=== PATIENT | female | born 1965 | race Caucasian/White ===

== ENCOUNTER 2019-12-06 22:36 | Emergency (ER) | payer BC, SELFPAY ==
--- NOTE | 2019-12-06 22:45 | ECG_ITS ---
Test Reason : CP Blood Pressure : / mmHG Vent. Rate : 084 BPM Atrial Rate : 084 BPM P-R Int : 154 ms QRS Dur : 094 ms QT Int : 396 ms P-R-T Axes : 031 011 046 degrees QTc Int : 467 ms Normal sinus rhythm Normal ECG When compared with ECG of 30-MAY-2019 06:42, No significant change was found Referred By: Mala Rinaldi Electronically Signed By:JOSÉ MIGUEL ROSEN MD
[2019-12-06 22:48] VITALS: BP 133/82; PULSE 86; RESP 16; TEMP 36.5; O2SAT 97; BMI 31.9
--- NOTE | 2019-12-06 22:56 | XR_ITS ---
EXAMINATION: CHEST 1 VIEW CLINICAL INFORMATION: Chest pain. COMPARISON: February 19, 2019. TECHNIQUE: An AP view of the chest is provided. FINDINGS: The cardiac silhouette is not enlarged. The mediastinal and hilar contours are unremarkable. There are neither pleural effusions nor pneumothoraces. There are no consolidations. The osseous structures are stable. XR/XR chest 1V IMPRESSION: No evidence for acute disease.
--- NOTE | 2019-12-06 22:58 | ED_ITS ---
HPI - Chest Pain General Chief Complaint: Chest Pain Stated Complaint: CHEST PAIN Time Seen by Provider: 12/06/19 22:56 Source: patient Mode of arrival: ambulatory Limitations: no limitations History of Present Illness HPI narrative: this is a 54-year-old female walked into the emergency room with left-sided chest pain started 45 minutes ago, pain is localized to the left chest area, patient was described as intermittent, patient was resting watching TV when she had the pain, nothing made it worse or better, patient declined any radiation of the pain, patient also declined any other associated symptoms, pain was rated as 5/10. 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 Reviewed her record patient had a negative stress test in 2017. Related Data Home Medications Medication Instructions Recorded Confirmed diltiazem HCl 1 cap PO DAILY 12/06/19 12/06/19 duloxetine 1 cap PO DAILY 12/06/19 12/06/19 gabapentin 300 mg PO DAILY 12/06/19 12/06/19 lorazepam 1 tab PO BID PRN 12/06/19 12/06/19 lorazepam 1 tab PO BID PRN 12/06/19 12/06/19 montelukast 1 tab PO DAILY 12/06/19 12/06/19 triamcinolone acetonide See Rx Instructions .ROUTE .COMPLEX 12/06/19 12/06/19 Allergies Allergy/AdvReac Type Severity Reaction Status Date / Time Sulfa (Sulfonamide Allergy Intermediate rash Verified 12/06/19 23:35 Antibiotics) [SULFA (SULFONAMIDE ANTIBIOTICS)] amitriptyline Allergy Unknown lethargy Verified 12/06/19 23:07 codeine [CODEINE] Allergy Unknown RASH Verified 12/06/19 23:07 naproxen [From NAPROSYN] Allergy Unknown RASH Verified 12/06/19 23:07 Review of Systems Review of Systems: all other systems are reviewed and are negative Constitutional: Reports as per HPI and Reports no additional constitutional complaints Eyes: Reports as per HPI and Reports no additional eye complaints Reports system reviewed and no additional complaints, except as documented Cardiovascular: Reports as per HPI and Reports no additional cardiovascular co mplaints Respiratory: Reports as per HPI and Reports no additional respiratory complaints Gastrointestinal: Reports as per HPI and Reports no additional gastrointestinal complaints Genitourinary: Reports no additional female genitourinary complaints Musculoskeletal: Reports no additional musculoskeletal complaints Skin/Breast: Reports system reviewed and no additional complaints, except as docu Psychiatric: Reports no additional psychiatric complaints Endocrine: Reports no additional endocrine complaints Hematologic/Lymphatic: Reports no additional hematologic/lymphatic complaints Allergic/Immunologic: Reports no additional allergic/immunologic complaints Reports system reviewed and no additional complaints, except as documented and Reports Abnormal speech present [facility] Past Medical History Medical History Asthma Diabetes SVT (supraventricular tachycardia) Social History Social History Alcohol intake: unknown Use of substances other than those prescribed or required for medical reasons: Unknown Advance Directives: No Physical Exam Vital Signs: Vital Signs: Vital Signs Temp Pulse Resp BP Pulse Ox 12/06/19 23:23 82 16 132/80 97 12/06/19 22:48 97.7 F 86 16 133/82 97 Body Mass Index 31.9 vital signs have been reviewed as normal and appeared to be correct. Blood pressure normal. Heart rate normal. Respiration rate normal. Temperature normal. Oxygen saturation normal. Appearance: Alert. Oriented X3. No acute distress. Head: Normal external exam. Normocephalic. Atraumatic. No Gentile signs noted. No raccoon eyes noted Eyes: PERRLA. EOMI. Conjunctiva and sclera normal. Eyelids normal. ENT: EAC normal. TM's Normal. Pharynx normal. Uvula midline. Moist mucous membranes. No trismus noted. No drooling noted. No muffled voice noted. Neck: Normal inspection. Neck supple. FROM. No adenopathy. Thyroid Normal. No meningeal signs. No neck mass noted. CVS: Normal heart rate and rhythm. Heart sound normal. No murmurs noted. Pulses normal throughout. Respiratory: No respiratory distress. Painless inspiration. Breath sounds normal. No wheezes/rales/rhonchi noted. Chest nontender. No accessory muscle usage noted or decreased air movement noted. Abdomen: Soft and nontender. Bowel sounds normal in all 4 quadrants. No distention noted. No organomegaly noted. No visible injury noted. Back: No CVA tenderness. Full range of motion noted. Skin: Skin warm and dry. Normal skin color. Normal skin turgor. No rashes/lesions/lacerations noted. Extremities: No lower extremity edema. Extremities exhibit normal range of motion. Extremities nontender. Neuro: Oriented X 3. No motor deficit. No sensory deficit. Reflexes normal. Course Course Course Narrative: 54-year-old female presented with chest pain 45 minutes before arrival, patient decline any risk factor for DVT/ PE no recent travel, no lower extremity swelling, no history of DVT /PE. Will check EKG / chest x-ray/ labs / cardiac monitoring. MDM - Chest Pain MDM Narrative Medical decision making narrative: assessment and plan. 54-year-old female came in with left-sided chest pain. 1. Low risk for PE/DVT with negative D-dimer. 2. chest pain with normal EKG high sensitive troponin is within normal limits need repeat in 3 hours which is expected to be normal. Will discharge the patient to follow-up with PCP. Lab Data Result diagrams: 12/06/19 23:21 12/06/19 23:21 Labs: Lab Results 12/06/19 12/06/19 12/06/19 Range/Units 23:21 23:21 23:21 WBC 7.2 (4.8-10.8) X10*3/uL RBC 4.31 (4.20-5.50) X10*6/uL Hgb 12.8 (12.0-16.0) g/dl Hct 37.9 (37-47) % MCV 87.9 (80-98) fL MCH 29.7 (27.0-33.0) pg MCHC 33.8 (31.0-35.0) g/dl RDW 12.9 (11.0-16.0) % Plt Count 265 (160-400) X10*3/uL MPV 10.3 (9.4-12.3) fL Immature Gran % (Auto) 0.4 (0.0-0.4) % Neut % (Auto) 52.7 (45-73) % Lymph % (Auto) 33.1 (20-40) % Piatt % (Auto) 7.2 (2-11) % Eos % (Auto) 5.9 H (0-4) % Baso % (Auto) 0.7 (0-2) % Lymph # (Auto) 2.4 (1.2-4.9) X10*3/uL Piatt # (Auto) 0.5 (0.1-1.2) X10*3/uL Eos # (Auto) 0.4 (0.0-0.4) X10*3/uL Baso # (Auto) 0.1 (0.0-0.2) X10*3/uL Abs Immat Gran (auto) 0.03 (0.00-0.03) X10*3/uL Absolute Neuts (auto) 3.8 (2.0-8.3) X10*3/uL Absolute Nucleated RBC 0.000 (0.0-0.012) X10*3/uL Nucleated RBC % (auto) 0.0 (0.0-0.2) /100WBC D-Dimer NG/ML Sodium 138 (135-145) mmol/L Potassium 3.8 (3.3-5.1) mmol/l Chloride 103 (96-108) mmol/L Carbon Dioxide 26 (22-29) mmol/L Anion Gap 13 (12-20) BUN 13 (9-16) mg/dL Creatinine 0.84 (0.5-1.4) mg/dL Estim Creat Clear Calc 83.4 Estimated GFR > 60 Random Glucose 214 H (60-115) mg/dL Calcium 9.2 (8.4-10.2) mg/dL Total Bilirubin 0.2 (0.0-1.0) mg/dL Direct Bilirubin < 0.2 (0.0-0.5) mg/dL AST 21 (5-31) U/L ALT 22 (0-31) U/L Alkaline Phosphatase 121 H (39-117) U/L Troponin I High Sens 4.3 (<3.5-17.0) ng/L B-Natriuretic Peptide < 10 (<100) pg/mL Total Protein 6.7 (6.5-8.0) g/dL Albumin 3.9 (3.5-5.0) g/dL Lipase 17 (8-78) U/L 12/06/19 Range/Units 23:21 WBC (4.8-10.8) X10*3/uL RBC (4.20-5.50) X10*6/uL Hgb (12.0-16.0) g/dl Hct (37-47) % MCV (80-98) fL MCH (27.0-33.0) pg MCHC (31.0-35.0) g/dl RDW (11.0-16.0) % Plt Count (160-400) X10*3/uL MPV (9.4-12.3) fL Immature Gran % (Auto) (0.0-0.4) % Neut % (Auto) (45-73) % Lymph % (Auto) (20-40) % Piatt % (Auto) (2-11) % Eos % (Auto) (0-4) % Baso % (Auto) (0-2) % Lymph # (Auto) (1.2-4.9) X10*3/uL Piatt # (Auto) (0.1-1.2) X10*3/uL Eos # (Auto) (0.0-0.4) X10*3/uL Baso # (Auto) (0.0-0.2) X10*3/uL Abs Immat Gran (auto) (0.00-0.03) X10*3/uL Absolute Neuts (auto) (2.0-8.3) X10*3/uL Absolute Nucleated RBC (0.0-0.012) X10*3/uL Nucleated RBC % (auto) (0.0-0.2) /100WBC D-Dimer < 200 NG/ML Sodium (135-145) mmol/L Potassium (3.3-5.1) mmol/l Chloride (96-108) mmol/L Carbon Dioxide (22-29) mmol/L Anion Gap (12-20) BUN (9-16) mg/dL Creatinine (0.5-1.4) mg/dL Estim Creat Clear Calc Estimated GFR Random Glucose (60-115) mg/dL Calcium (8.4-10.2) mg/dL Total Bilirubin (0.0-1.0) mg/dL Direct Bilirubin (0.0-0.5) mg/dL AST (5-31) U/L ALT (0-31) U/L Alkaline Phosphatase (39-117) U/L Troponin I High Sens (<3.5-17.0) ng/L B-Natriuretic Peptide (<100) pg/mL Total Protein (6.5-8.0) g/dL Albumin (3.5-5.0) g/dL Lipase (8-78) U/L Imaging Data Chest x-ray: Radiologist's impression: The cardiac silhouette is not enlarged. The mediastinal and hilar contours are unremarkable. There are neither pleural effusions nor pneumothoraces. There are no consolidations. The osseous structures are stable. ECG Data ECG #1: Interpretation: Normal sinus rhythm at 84 beats per minute, normal intervals, no ST-T changes. Discharge Plan Discharge Clinical Impression: Chest pain Patient Disposition: Home, Self-Care Instructions: Chest Pain (ED) Prescriptions: No Action diltiazem HCl 120 mg capsule,extended release 24hr 1 cap PO DAILY RF: 0 gabapentin 100 mg capsule 300 mg PO DAILY RF: 0 duloxetine 60 mg capsule,delayed release(DR/EC) 1 cap PO DAILY RF: 0 triamcinolone acetonide 0.1 % cream See Rx Instructions .ROUTE .COMPLEX RF: 0 lorazepam 0.5 mg tablet 1 tab PO BID PRN (Reason: anxiety) RF: 0 lorazepam 0.5 mg tablet 1 tab PO BID PRN (Reason: anxiety) RF: 0 montelukast 10 mg tablet 1 tab PO DAILY RF: 0 Referrals: Alma Herrera NP [Primary Care Provider] - 2 days
[2019-12-06 23:23] VITALS: BP 132/80; PULSE 82; RESP 16; O2SAT 97
[2019-12-06 23:30] LABS: Basophils Absolute Auto 0.1 X10*3/uL (0.0-0.2); Basophils Percent Auto 0.7 % (0-2); Eosinophils Absolute Auto 0.4 X10*3/uL (0.0-0.4); Eosinophils Percent Auto 5.9 % (0-4); Hematocrit 37.9 % (37-47); Hemoglobin 12.8 g/dl (12.0-16.0); Imm Gran Abs Auto 0.03 X10*3/uL (0.00-0.03); Imm Gran Pct Auto 0.4 % (0.0-0.4); Lymphocytes Absolute Auto 2.4 X10*3/uL (1.2-4.9); Lymphocytes Percent Auto 33.1 % (20-40); MANUAL DIFF FLAG NO; Mean Corpuscular HGB Conc 33.8 g/dl (31.0-35.0); Mean Corpuscular Hemoglobin 29.7 pg (27.0-33.0); Mean Corpuscular Volume 87.9 fL (80-98); Mean Platelet Volume 10.3 fL (9.4-12.3); Monocytes Absolute Auto 0.5 X10*3/uL (0.1-1.2); Monocytes Percent Auto 7.2 % (2-11); Neutrophils Absolute Auto 3.8 X10*3/uL (2.0-8.3); Neutrophils Percent Auto 52.7 % (45-73); Platelet Count 265 X10*3/uL (160-400); Red Blood Count 4.31 X10*6/uL (4.20-5.50); Red Cell Distribution Width 12.9 % (11.0-16.0); White Blood Count 7.2 X10*3/uL (4.8-10.8)
[2019-12-06 23:32] VITALS: PULSE 86
[2019-12-06 23:54] LABS: Alanine Aminotransferase 22 U/L (0-31); Albumin Level 3.9 g/dL (3.5-5.0); Alkaline Phosphatase 121 U/L (39-117); Anion Gap 13 (12-20); Aspartate Amino Transferase 21 U/L (5-31); Bilirubin Direct < 0.2 mg/dL (0.0-0.5); Bilirubin Total 0.2 mg/dL (0.0-1.0); Blood Urea Nitrogen 13 mg/dL (9-16); Calcium 9.2 mg/dL (8.4-10.2); Carbon Dioxide 26 mmol/L (22-29); Chloride 103 mmol/L (96-108); Creatinine Clr Calc Pharmacy 83.4; Estimated Glomerular Filt Rate > 60; Glucose Random 214 mg/dL (60-115); Lipase 17 U/L (8-78); Potassium 3.8 mmol/l (3.3-5.1); Sodium 138 mmol/L (135-145); Total Protein 6.7 g/dL (6.5-8.0)
[2019-12-06 23:57] LABS: B Type Natriuretic Peptide < 10 pg/mL (<100); Troponin-I High Sensitivity 4.3 ng/L (<3.5-17.0)
[2019-12-07 00:25] LABS: D Dimer < 200 NG/ML
[2019-12-07 02:00] VITALS: BP 121/73; PULSE 95; RESP 15; O2SAT 95
[2019-12-07 03:28] LABS: Troponin-I High Sensitivity 4.4 ng/L (<3.5-17.0)
[2019-12-07 04:00] VITALS: BP 134/86; PULSE 86; RESP 15; O2SAT 98
== END 2019-12-07 05:00 | disposition home or self-care (01) ==
PROVIDERS: Emergency Provider Emergency Medicine; PCP Nurse Practitioner Family
DX: R07.9 Chest pain, unspecified (principal); Z79.899 Other long term (current) drug therapy
CPT/HCPCS: 36415; 71045; 80048; 80076; 83690; 83880; 84484; 85025; 85379; 93005; 99283; 99285

== ENCOUNTER → 2020-02-28 13:22 | Outpatient (BNVA) | payer BC, SELFPAY | PROVIDERS: PCP Nurse Practitioner Family; Visit Provider Internal Medicine Cardiovascular Disease | DX: Z76.89 Persons encountering health services in other specified circumstances (principal) ==

== ENCOUNTER → 2020-04-01 09:12 | Outpatient (REF) | payer BC, SELFPAY ==
--- NOTE | 2020-04-01 09:15 | CA_ITS ---
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 The visually estimated ejection fraction is between 60-65%. - No obvious valvular pathology seen on this study. Findings Left Ventricle Normal left ventricular cavity size. There is normal left ventricular wall thickness. The left ventricular systolic function is normal. The visually estimated ejection fraction is between 60-65%. There is no evidence of regional wall motion abnormalities. E/E prime ratio is between 8 and 15 consistent with indeterminate filling pressures. Evidence suggests grade I (mild) diastolic dysfunction. Right Ventricle Normal right ventricular cavity size and systolic function. Atria The left atrium is normal in size. The right atrium is normal in size. Aortic Valve There is a normal trileaflet aortic valve. There is no aortic valve stenosis. There is no aortic valve regurgitation. Mitral Valve The mitral valve appears normal. There is trace mitral valve regurgitation. There is no mitral valve stenosis. Pulmonic Valve The pulmonic valve was not well visualized. Tricuspid Valve Normal tricuspid valve structure. There is trace tricuspid valve regurgitation. The pulmonary artery systolic pressure is normal. Great Vessels The aortic annulus, sinuses of valsalva, and asc aorta are normal in size. Venous The inferior vena cava is normal in size and collapses greater than 50% with inspiration. Pericardium/Pleural There is no evidence of pericardial effusion. Prior Study Comparison No significant change compared to prior study dated: 04/07/2016. Recommendations, Care & Conclusions No obvious valvular pathology seen on this study. Measurements 2D Linear Measurements IVSd: 1.01 0.6-0.9/0.6-1.0 cm LVIDd: 3.84 3.9-5.3/4.2-5.9 cm LVIDd Index: 1.96 2.4-3.2/2.2-3.1 cm/m2 LVIDs: 2.49 2.0-3.6 cm LVPWd: 1.04 0.7-1.1 cm Ao Root: 2.70 2.1-3.5 cm LA Diam: 3.50 2.7-3.8/3.0-4.0 cm LAIDs Index: 1.79 1.5-2.3 cm/m2 LV Mass: 153.62 67-162/88-224 g LV Mass Index: 78.38 43-95/49-115 g/m2 LVOT Diam: 2.10 3.0+(-)1.3 cm Mitral Valve MV Pk E: 0.87 MV PK A: 1.18 MV Decel Time: 194.00 E/A: 0.70 E'Lateral: 9.38 E'Medial: 6.19 E/E' Med: 14.00 E/E' Lat: 9.30 PHT: 57.00 MVA PHT: 3.[address] [place]: 4.48 Aortic Valve AoV Pk Emil: 1.74 AoV Mn Emil: 1.10 AoV VTI: 0.35 AoV Pk Grad: 12.00 Aov Mn Grad: 6.00 HAL Cont.VTI: 2.39 LVOT LVOT Pk Emil: 1.03 LVOT Mn Emil: 0.72 LVOT VTI: 0.24 LVOT Pk Grad: 4.00 LVOT Mn Grad: 3.00 LVOT Diam: 2.10 LVOT Area: 3.46 Diastolic Function MV Pk E: 0.87 MV Pk A: 1.18 E/A: 0.70 E'Medial: 6.19 E/E' Med: 14.00 E' Laterial: 9.38 E/E' Lat: 9.30 Tricuspid Valve TR Pk Emil: 2.24 TR Pk Grad: 20.00 RA Press: 3.00 RVSP: 23.00 Great Vessels Aorta Ao Root-2D: 2.70 2.0-3.7 cm Ao Asc: 3.20 2.1-3.4 cm Pulmonary Valve PV Pk Emil: 1.06 Peak PV Grad: 4.00 Updated in Other Vendor System with Status of Final Derrell Marina MD electronically signed on 04/01/2020 11:54:42 AM with status of Final
== END ==
LOC: HO.SL 09:12
PROVIDERS: PCP Nurse Practitioner Family; Visit Provider Internal Medicine Cardiovascular Disease
DX: G47.30 Sleep apnea, unspecified (principal); R06.83 Snoring; I48.0 Paroxysmal atrial fibrillation
CPT/HCPCS: 93306; 95806

== ENCOUNTER 2020-04-11 12:50 | Outpatient (REF) | payer BC, SELFPAY ==
--- NOTE | ~2020-04-11 | MM_ITS ---
EXAMINATION: MM SCREENING DIGITAL BREAST TOMOSYNTHESIS, BILATERAL CLINICAL INFORMATION: Screening. Asymptomatic. Benign left breast stereotactic biopsy 03/07/2017 (Fibrocystic changes including apocrine metaplasia with associated microcalcifications, and stromal fibrosis). The lifetime risk of breast cancer based on the Tyrer-Cuzick Model is 7%. COMPARISON: Mammography: 04/05/2019, 03/07/2017, 02/28/2017, 02/10/2017 TECHNIQUE: Digital breast tomosynthesis is performed in both the craniocaudal and mediolateral oblique views along with computer-aided detection (CAD). Synthesized 2D images are generated from the tomosynthesis. FINDINGS: The breasts are heterogeneously dense, which may obscure small masses (ACR BI-RADS breast composition Category c). There are scattered diffuse bilateral calcifications in the breasts, overall symmetrically increased in number without focal grouping in 2 planes. Biopsy clip marker again noted left breast anterior lower inner quadrant. There is no interval mass or architectural abnormality or developing density. No significant changes. MM/MM tomosynthesis screening BI IMPRESSION: There are no significant changes from prior study. ASSESSMENT: BI-RADS 2: Benign RECOMMENDATION: Routine annual mammography screening. This patient's information was entered into a reminder system with a target due date for their next mammogram.
== END 2020-04-11 12:51 | disposition home or self-care (01) ==
LOC: HO.MAMMO 12:50
PROVIDERS: Visit Provider Nurse Practitioner Family
DX: Z12.31 Encounter for screening mammogram for malignant neoplasm of breast (principal)
CPT/HCPCS: 77063; 77067

== ENCOUNTER → 2020-05-15 10:44 | Outpatient (BNVA) | payer BC, SELFPAY | PROVIDERS: PCP Nurse Practitioner Family; Visit Provider Internal Medicine Cardiovascular Disease ==

== ENCOUNTER → 2020-11-12 09:42 | Outpatient (BNVA) | payer BC, SELFPAY | PROVIDERS: PCP Nurse Practitioner Family; Visit Provider Internal Medicine Cardiovascular Disease | DX: I48.0 Paroxysmal atrial fibrillation (principal); I47.1 Supraventricular tachycardia | CPT/HCPCS: 93005 ==

== ENCOUNTER 2021-02-17 08:20 | Outpatient (REF) | payer BC, SELFPAY ==
[2021-02-17 11:13] LABS: Binax Internal Control QC Valid; Binax Lot number: 9864; Binax Now Covid-19 Ag Negative (Negative)
== END 2021-02-17 08:21 | disposition home or self-care (01) ==
LOC: HO.LAB 08:20
PROVIDERS: Visit Provider Internal Medicine
DX: Z20.822 Contact with and (suspected) exposure to COVID-19 (principal)
CPT/HCPCS: 36415; C9803

== ENCOUNTER 2021-02-17 12:01 | Emergency (ER) | payer BC, SELFPAY ==
--- NOTE | ~2021-02-17 | CT_ITS ---
EXAMINATION: CT HEAD WITHOUT CONTRAST CLINICAL INFORMATION: Left facial tingling. COMPARISON: MR brain dated from 11/04/2011. TECHNIQUE: Contiguous axial imaging was performed from the skull base to vertex without intravenous administration of contrast. This CT examination was performed using dose optimization techniques as appropriate, variously including the following: *Automated exposure control *Adjustment of mA and/or kV according to patient size (this includes techniques or standardized protocols for targeted exams where dose is matched to indication/reason for exam; i.e. extremities or head) *Use of iterative reconstruction technique DLP: 667 mGy-cm FINDINGS: There is no evidence of acute intracranial hemorrhage or edematous territorial infarction. There is no abnormal attenuation within the brain parenchyma. Bland-white matter differentiation is preserved. The ventricles are normal in size and configuration. No evidence for obstructive hydrocephalus. No abnormal mass effect or midline shift. No extra-axial fluid collections. No acute soft tissue or osseous abnormalities. Mucosal thickening, small air-fluid levels and hyperattenuating debris in the right sphenoidal sinus. Otherwise, the remainder of the paranasal sinuses and mastoids are clear. CT/CT head/brain wo con IMPRESSION: 1. No evidence of acute intracranial hemorrhage or edematous territorial infarction. 2. Paranasal sinus disease within the right sphenoidal sinus. Correlate for signs of active sinusitis.
--- NOTE | 2021-02-17 12:06 | ECG_ITS ---
Test Reason : cp Blood Pressure : / mmHG Vent. Rate : 092 BPM Atrial Rate : 092 BPM P-R Int : 160 ms QRS Dur : 082 ms QT Int : 354 ms P-R-T Axes : 029 -08 036 degrees QTc Int : 437 ms Normal sinus rhythm Normal ECG When compared with ECG of 06-DEC-2019 22:45, No significant change was found Referred By: Generic ED Physician Electronically Signed By:AB MOORE MD
[2021-02-17 13:44] VITALS: BP 139/89; PULSE 92; RESP 16; TEMP 36.6; O2SAT 96; BMI 31.6
[2021-02-17 14:03] LABS: MANUAL DIFF FLAG NO
[2021-02-17 14:06] LABS: Basophils Percent Auto 0.6 % (0-2); Eosinophils Absolute Auto 0.1 X10*3/uL (0.0-0.4); Hematocrit 41.8 % (37.0-47.0); Hemoglobin 14.2 g/dl (12.0-16.0); Imm Gran Abs Auto 0.03 X10*3/uL (0.00-0.03); Imm Gran Pct Auto 0.5 % (0.0-0.4); Lymphocytes Absolute Auto 1.9 X10*3/uL (1.2-4.9); Lymphocytes Percent Auto 28.6 % (20-40); Mean Corpuscular Hemoglobin 30.1 pg (27.0-33.0); Mean Corpuscular Volume 88.6 fL (80.0-98.0); Mean Platelet Volume 9.8 fL (9.4-12.3); Monocytes Absolute Auto 0.5 X10*3/uL (0.1-1.2); Neutrophils Percent Auto 60.3 % (45-73); Platelet Count 304 X10*3/uL (160-400); Red Blood Count 4.72 X10*6/uL (4.20-5.50); Red Cell Distribution Width 12.3 % (11.0-16.0); White Blood Count 6.5 X10*3/uL (4.8-10.8)
[2021-02-17 14:16] LABS: Lactic Acid 0.9 mmol/L (0.5-2.0)
[2021-02-17 14:26] LABS: Troponin-I High Sensitivity < 3.5 ng/L (<3.5-17.0)
[2021-02-17 14:36] LABS: Alanine Aminotransferase 21 U/L (0-31); Albumin Level 4.5 g/dL (3.5-5.0); Alkaline Phosphatase 122 U/L (39-117); Anion Gap 9 (12-20); Aspartate Amino Transferase 17 U/L (5-31); Bilirubin Total 0.3 mg/dL (0.0-1.0); Blood Urea Nitrogen 15 mg/dL (9-16); Calcium 9.6 mg/dL (8.4-10.2); Carbon Dioxide 29 mmol/L (22-29); Chloride 104 mmol/L (96-108); Creatinine Clr Calc Pharmacy 77.4; Estimated Glomerular Filt Rate > 60; Glucose Random 115 mg/dL (60-115); Potassium 3.9 mmol/L (3.3-5.1); Sodium 138 mmol/L (135-145); Total Protein 7.8 g/dL (6.5-8.0)
[2021-02-17 20:05] VITALS: BP 160/88; PULSE 84; RESP 18; TEMP 36.5; O2SAT 99
--- NOTE | 2021-02-17 21:33 | ED_ITS ---
HPI - General Adult General Chief complaint: General Medical Stated complaint: swelling near ear,chest pain,tingling l arm Time Seen by Provider: 02/17/21 20:07 Source: patient Mode of arrival: ambulatory Limitations: no limitations History of Present Illness HPI narrative: 55-year-old female presents to ED for tingling on left side of face near jaw that began this morning. patient also states the tingling left arm that resolved on its own. patient denies any chest pain, shortness of breath, facial droop, slurred speech, dizziness, headache, nausea, vomiting, or paralysis of extremities. Related Data Home Medications Medication Instructions Recorded Confirmed gabapentin 100 mg capsule 300 mg PO DAILY 12/06/19 11/12/20 lorazepam 0.5 mg tablet 1 tab PO BID PRN 12/06/19 11/12/20 triamcinolone acetonide 0.1 % See Rx Instructions .ROUTE .COMPLEX 12/06/19 11/12/20 topical cream duloxetine 60 mg capsule,delayed 60 mg PO DAILY 05/15/20 11/12/20 release montelukast 10 mg tablet 10 mg PO DAILY 05/15/20 11/12/20 Previous Rx's Medication Instructions Recorded rivaroxaban 20 mg tablet (Xarelto) 20 mg PO QPM #30 tab 08/19/20 diltiazem HCl 180 mg 180 mg PO DAILY 90 Days #90 cap 11/11/20 capsule,extended release 24 hr Allergies Allergy/AdvReac Type Severity Reaction Status Date / Time Sulfa (Sulfonamide Allergy Intermediate rash Verified 12/06/19 23:35 Antibiotics) [SULFA (SULFONAMIDE ANTIBIOTICS)] amitriptyline Allergy Unknown lethargy Verified 12/06/19 23:07 codeine [CODEINE] Allergy Unknown RASH Verified 12/06/19 23:07 naproxen [From NAPROSYN] Allergy Unknown RASH Verified 12/06/19 23:07 Review of Systems Review of Systems: Yes all other systems are reviewed and are negative Constitutional: Constitutional: Reports as per HPI and Reports no additional constitutional complaints Eyes: Eyes: Reports as per HPI and Reports no additional eye complaints Cardiovascular: Cardiovascular: Reports as per HPI and Reports no additional cardiovascular complaints Respiratory: Respiratory: Reports as per HPI and Reports no additional respiratory complaints Gastrointestinal: Gastrointestinal: Reports as per HPI and Reports no additional gastrointestinal complaints Genitourinary: Genitourinary: Reports no additional female genitourinary complaints and Reports as per HPI Musculoskeletal: Musculoskeletal: Reports no additional musculoskeletal complaints and Reports as per HPI Integumentary/Breasts: Skin/Breast: Reports system reviewed and no additional complaints, except as docu and Reports as per HPI Neurologic: Reports system reviewed and no additional complaints, except as do cumented and Reports as per HPI Comments: Left facial tingling, left arm tingling. Psychiatric: Psychiatric: Reports no additional psychiatric complaints and Reports as per HPI [facility] Past Medical History Medical History Asthma Diabetes Obstructive sleep apnea Paroxysmal atrial fibrillation SVT (supraventricular tachycardia) Surgical History Hx of lumbosacral spine surgery Family History Family History Father Diabetes Mother Diabetes CVD (cardiovascular disease) CHF (congestive heart failure) HTN (hypertension) Social History Social History Alcohol intake: unknown Advance Directives: No Advance Directives Information Provided: Yes Physical Exam Vital Signs: Vital Signs: Last Vital Signs Temp 97.7 F 02/17/21 20:05 Pulse 84 02/17/21 20:05 Resp 18 02/17/21 20:05 BP 160/88 H 02/17/21 20:05 Pulse Ox 99 02/17/21 20:05 BMI result Body Mass Index 31.6 Const: General: cooperative, healthy appearing, comfortable and no acute distress Orientation/consciousness: patient oriented x3 HENMT: Other: Negative for any facial swelling, mass on palpation, redness, submandibular, neck mass, mastoiditis or neck swelling. Head: Yes normal to inspection, Yes No palpable skull fracture present, Yes normocephalic, Yes atraumatic and No abrasion Ears: hearing grossly normal bilaterally, external ears normal, TM's normal bilaterally, EAC's normal, mastoids normal and no periauricular adenopathy Eyes: General: appearance normal, both eyes and all related structures Neck: Neck: Yes normal visual inspection, Yes full ROM, Yes no lymphadenopathy, Yes no meningeal signs, Yes trachea midline, Yes supple, No ant erior neck swelling and No tender Chest: Chest palpation & inspection: normal inspection of the chest and normal palpation of entire chest wall Resp: Effort & Inspection: normal respiratory effort and able to speak in complete sentences Cardio: Jugular venous distension: no JVD Heart sounds: S1 normal heart so und present and S2 normal heart sound present GI: Inspection: Yes normal to inspection and No abdominal wall ecchymosis Palpation (GI): Soft to palpation, not firm, nontender and no guarding : General: No CVA tenderness and Yes no CVA tenderness Back/Spine/Pelvis: Back: no CVA tenderness, No CVA tenderness and No back tenderness Skin: Other: Negative for any supraclavicular, axillary, cervical, umbilical, abdominal, chest wall, or inguinal lymphadenopathy. General skin exam: no rashes or lesions noted and elasticity normal Neuro: Other: negative facial droop. Negative slurred speech. All extremities equal strength 5+. [id number] rapid hand movement intact. Negative Romberg. Negative pronator drift. General: patient oriented x3, gait normal, no meningeal signs and CN's II-XI intact bilaterally Cranial nerves: Yes CN's II-XII intact bilaterally Extrem: General: Yes normal to inspection and Yes full ROM Psych: Appearance: grossly normal, well kempt and not disheveled Course Course Course Narrative: Due to age and tingling left side of face left arm tingling patient had EKG troponin drawn in the waiting room for rapid medical screening. Reevaluation(s) Reevaluation #1: Initial EKG troponin negative. patient presently asymptomatic. NIH score is [address] scan which came back negative for stroke. Waiting 2nd troponin. Time: 16:00 Reevaluation #2: Head CT scan and magnesium came back negative. 2nd troponin negative. Patient is safe for discharge. negative for any neuro deficit. Patient on the bed comfortable on cellphone. Patient informed to follow-up with PCP. history and physical exam does not indicate lymphoma, mastoiditis, retropharyngeal abscess,MD, PE, CHF or Randy angina. Time: 23:39 Medical Decision Making MDM Narrative Medical decision making narrative: paresthesia Lab Data Result diagrams: 02/17/21 13:59 02/17/21 13:59 Labs: Lab Results 01/04/22 01/04/22 01/04/22 Range/Units 13:59 13:59 13:59 WBC 6.5 (4.8-10.8) X10*3/uL RBC 4.72 (4.20-5.50) X10*6/uL Hgb 14.2 (12.0-16.0) g/dl Hct 41.8 (37.0-47.0) % MCV 88.6 (80.0-98.0) fL MCH 30.1 (27.0-33.0) pg MCHC 34.0 (31.0-35.0) g/dl RDW 12.3 (11.0-16.0) % Plt Count 304 (160-400) X10*3/uL MPV 9.8 (9.4-12.3) fL Immature Gran % (Auto) 0.5 H (0.0-0.4) % Neut % (Auto) 60.3 (45-73) % Lymph % (Auto) 28.6 (20-40) % [place] % (Auto) 8.0 (2-11) % Eos % (Auto) 2.0 (0-4) % Baso % (Auto) 0.6 (0-2) % Lymph # (Auto) 1.9 (1.2-4.9) X10*3/uL [place] # (Auto) 0.5 (0.1-1.2) X10*3/uL Eos # (Auto) 0.1 (0.0-0.4) X10*3/uL Baso # (Auto) 0.0 (0.0-0.2) X10*3/uL Abs Immat Gran (auto) 0.03 (0.00-0.03) X10*3/uL Absolute Neuts (auto) 4.0 (2.0-8.3) x10*3/uL Absolute Nucleated RBC 0.000 (0.0-0.012) X10*3/uL Nucleated RBC % (auto) 0.0 (0.0-0.2) /100WBC Sodium 138 (135-145) mmol/L Potassium 3.9 (3.3-5.1) mmol/L Chloride 104 (96-108) mmol/L Carbon Dioxide 29 (22-29) mmol/L Anion Gap 9 L (12-20) BUN 15 (9-16) mg/dL Creatinine 0.89 (0.5-1.4) mg/dL Estim Creat Clear Calc 77.4 Estimated GFR > 60 Random Glucose 115 (60-115) mg/dL Lactic Acid 0.9 (0.5-2.0) mmol/L Calcium 9.6 (8.4-10.2) mg/dL Magnesium 2.3 (1.6-2.6) mg/dL Total Bilirubin 0.3 (0.0-1.0) mg/dL AST 17 (5-31) U/L ALT 21 (0-31) U/L Alkaline Phosphatase 122 H (39-117) U/L Troponin I High Sens (<3.5-17.0) ng/L Total Protein 7.8 (6.5-8.0) g/dL Albumin 4.5 (3.5-5.0) g/dL 02/17/21 02/17/21 Range/Units 13:59 22:24 WBC (4.8-10.8) X10*3/uL RBC (4.20-5.50) X10*6/uL Hgb (12.0-16.0) g/dl Hct (37.0-47.0) % MCV (80.0-98.0) fL MCH (27.0-33.0) pg MCHC (31.0-35.0) g/dl RDW (11.0-16.0) % Plt Count (160-400) X10*3/uL MPV (9.4-12.3) fL Immature Gran % (Auto) (0.0-0.4) % Neut % (Auto) (45-73) % Lymph % (Auto) (20-40) % [place] % (Auto) (2-11) % Eos % (Auto) (0-4) % Baso % (Auto) (0-2) % Lymph # (Auto) (1.2-4.9) X10*3/uL [place] # (Auto) (0.1-1.2) X10*3/uL Eos # (Auto) (0.0-0.4) X10*3/uL Baso # (Auto) (0.0-0.2) X10*3/uL Abs Immat Gran (auto) (0.00-0.03) X10*3/uL Absolute Neuts (auto) (2.0-8.3) x10*3/uL Absolute Nucleated RBC (0.0-0.012) X10*3/uL Nucleated RBC % (auto) (0.0-0.2) /100WBC Sodium (135-145) mmol/L Potassium (3.3-5.1) mmol/L Chloride (96-108) mmol/L Carbon Dioxide (22-29) mmol/L Anion Gap (12-20) BUN (9-16) mg/dL Creatinine (0.5-1.4) mg/dL Estim Creat Clear Calc Estimated GFR Random Glucose (60-115) mg/dL Lactic Acid (0.5-2.0) mmol/L Calcium (8.4-10.2) mg/dL Magnesium (1.6-2.6) mg/dL Total Bilirubin (0.0-1.0) mg/dL AST (5-31) U/L ALT (0-31) U/L Alkaline Phosphatase (39-117) U/L Troponin I High Sens < 3.5 < 3.5 (<3.5-17.0) ng/L Total Protein (6.5-8.0) g/dL Albumin (3.5-5.0) g/dL ECG Data Interpretation: normal sinus rhythm. Ventricular rate 92. [place] interval 160. QRS 82. QTC 437. Negative STEMI Discharge Plan Discharge Clinical Impression: Paresthesia Patient Disposition: Home, Self-Care Instructions: Paresthesia (ED) Additional Instructions: return to the ED immediately for any chest pain, shortness of breath, leg swelling, calf pain, Coughing up blood, facial droop, slurred speech, facial swelling, neck swelling, paralysis of extremities, loss of vision, ear pain, neck swelling, redness / swelling near ear, or any other concerning symptoms. Please follow-up with primary care provider Prescriptions: No Action rivaroxaban [Xarelto] 20 mg tablet 20 mg PO QPM Qty: 30 RF: 5 diltiazem HCl 180 mg capsule,extended release 24hr 180 mg PO DAILY 90 Days Qty: 90 RF: 3 gabapentin 100 mg capsule 300 mg PO DAILY RF: 0 triamcinolone acetonide 0.1 % cream See Rx Instructions .ROUTE .COMPLEX RF: 0 lorazepam 0.5 mg tablet 1 tab PO BID PRN (Reason: anxiety) RF: 0 duloxetine 60 mg capsule,delayed release(DR/EC) 60 mg PO DAILY RF: 0 montelukast 10 mg tablet 10 mg PO DAILY RF: 0 Stand Alone Forms: Work/School Release Interventions: ED Discharge Assessment Last Done: 02/18/21 00:11 Discharge Date/Time: 02/18/21 00:14 Print Language: Arabic
[2021-02-17 21:34] LABS: Magnesium 2.3 mg/dL (1.6-2.6)
[2021-02-17 22:49] LABS: Troponin-I High Sensitivity < 3.5 ng/L (<3.5-17.0)
== END 2021-02-18 00:14 | disposition home or self-care (01) ==
PROVIDERS: Physician Assistant; Emergency Provider Emergency Medicine Emergency Medical Services; PCP Nurse Practitioner Family
DX: R20.2 Paresthesia of skin (principal); E11.9 Type 2 diabetes mellitus without complications; I48.0 Paroxysmal atrial fibrillation; Z79.01 Long term (current) use of anticoagulants
CPT/HCPCS: 36415; 70450; 80053; 83605; 83735; 84484; 85025; 93005; 99284

== ENCOUNTER 2021-04-28 16:17 | Outpatient (REF) | payer BC, SELFPAY ==
--- NOTE | ~2021-04-28 | MM_ITS ---
EXAMINATION: MM SCREENING DIGITAL BREAST TOMOSYNTHESIS, BILATERAL CLINICAL INFORMATION: Screening. Asymptomatic. Benign left breast stereotactic biopsy 03/07/2017 (Fibrocystic changes including apocrine metaplasia with associated microcalcifications, and stromal fibrosis). No known family history breast cancer. The lifetime risk of breast cancer based on the Tyrer-Cuzick Model is 7%. COMPARISON: Mammography: 04/11/2020, 04/05/2019, 03/07/2017, 02/28/2017, 02/10/2017 TECHNIQUE: Digital breast tomosynthesis is performed in both the craniocaudal and mediolateral oblique views along with computer-aided detection (CAD). Synthesized 2D images are generated from the tomosynthesis. FINDINGS: The breasts are heterogeneously dense, which may obscure small masses (ACR BI-RADS breast composition Category c). Left breast parenchymal pattern is similar to prior studies. There is no developing density or architectural abnormality. There are increased calcifications in both breasts, similar appearing and punctate. There are dispersed on the left without focal grouping. There is a biopsy clip marker again noted anterior lower inner left breast. No recurrent calcifications in this area. The bilateral axilla and skin contours are unremarkable. The right breast has regional increased calcifications central upper breast 12:00-1:00 position. There is also question of focal nodular asymmetry posterior 12:00 left breast 9-10 cm from nipple. Patient will be recalled for additional imaging of the right. MM/MM tomosynthesis screening BI IMPRESSION: Right: -Question of focal nodular asymmetric density posterior 12:00. -Regional increased calcifications central upper 12:00-1:00. Left: -No significant changes from prior exam.. ASSESSMENT: BI-RADS 0: Incomplete - Need Additional Imaging Evaluation RECOMMENDATION: 1. Additional views of the right breast - Spot CC and Spot ML for possible focal asymmetric density; magnification CC and magnification ML for calcifications. 2. Targeted ultrasound if warranted after review of the additional views. 3. Radiology department staff will contact the patient for additional imaging. This patient's information was entered into a reminder system with a target due date for their next mammogram.
== END 2021-04-28 16:18 | disposition home or self-care (01) ==
LOC: HO.MAMMO 16:17
PROVIDERS: PCP Nurse Practitioner Family; Visit Provider Nurse Practitioner Family
DX: Z12.31 Encounter for screening mammogram for malignant neoplasm of breast (principal)
CPT/HCPCS: 77063; 77067

== ENCOUNTER 2021-05-01 08:50 | Outpatient (REF) | payer BC, SELFPAY ==
--- NOTE | ~2021-05-01 | MM_ITS ---
EXAMINATION: MM DIAGNOSTIC DIGITAL BREAST TOMOSYNTHESIS, RIGHT US DIAGNOSTIC ULTRASOUND BREAST, RIGHT CLINICAL INFORMATION: Recall from screening for 2 findings right breast, regional increased calcifications central upper 12:00-1:00 position and question of focal nodular asymmetric density posterior 12:00 position. Prior history contralateral left stereotactic biopsy 03/07/2017 (Fibrocystic changes including apocrine metaplasia with associated microcalcifications, and stromal fibrosis). COMPARISON: Mammography: 04/28/2021, 04/11/2020, 04/05/2019, 02/10/2017 TECHNIQUE: Digital breast tomosynthesis is performed. 2D images are generated from the tomosynthesis. The following views are obtained: Spot CC, spot MLO x2, magnification CC, magnification ML. Ultrasound right breast is targeted to the upper breast 10:00 through 2:00 position using grayscale imaging and color Doppler without and with harmonics. FINDINGS: The breasts are heterogeneously dense, which may obscure small masses (ACR BI-RADS breast composition Category c). The additional spot views show no architectural abnormality or interval mass in area of recent concern. The additional magnification views confirm numerous punctate calcifications in the right breast, some showing layering on the ML view but most without layering and varying in size and attenuation. Calcifications are greatest posterior mid 12:30 o'clock position. Calcifications are increased from prior exams. Ultrasound right breast demonstrates scattered small simple cysts, the largest is only 0.5 cm, 12:00 position 9 cm from nipple. There is no solid mass or architectural abnormality. Results are discussed with the patient at time of visit. The right breast calcifications are regionally increased with some greater focal increase posterior mid 12:30 o'clock position. The calcifications vary in size and stereotactic sampling is recommended to confirm benignity. Given the number of calcifications, sampling at 2 locations from CC approach would be optimal. Results and recommendation called to office ([facility]) for Dr. Winn on 05/01/2021. MM/MM tomosynthesis added views R IMPRESSION: -Increased calcifications upper right breast which vary in size and attenuation. Tissue sampling recommended. -Incidental cysts upper right breast, largest 0.5 cm. No solid mass or architectural abnormality. ASSESSMENT: BI-RADS 4: Suspicious RECOMMENDATION: Stereotactic sampling right breast calcifications. Given the number calcifications, sampling at 2 locations would be optimal. This patient's information was entered into a reminder system with a target due date for their next mammogram.
== END 2021-05-01 08:51 | disposition home or self-care (01) ==
LOC: HO.MAMMO 08:50
PROVIDERS: Visit Provider Nurse Practitioner Family
DX: R92.1 Mammographic calcification found on diagnostic imaging of breast (principal); N64.89 Other specified disorders of breast
CPT/HCPCS: 76642; 77061; 77065

== ENCOUNTER 2021-05-05 13:11 | Outpatient (REF) | payer BC, SELFPAY ==
--- NOTE | ~2021-05-05 | MM_ITS ---
EXAMINATION: STEREOTACTIC TOMOSYNTHESIS-GUIDED VACUUM-ASSISTED BREAST BIOPSY, RIGHT BREAST X2 SPECIMEN RADIOGRAPH, RIGHT POST PROCEDURE DIGITAL MAMMOGRAM, RIGHT CLINICAL INFORMATION: 2 indeterminate grouping of calcifications superior right breast. COMPARISON: May 01, 2021 and studies dating back to October 13, 2011. TECHNIQUE/PROCEDURE: Informed consent was obtained from the patient after discussion of the benefits, risks, and alternatives to biopsy today. Patient appeared to understand. Gave opportunity for questions. Patient signed consent form. BIOPSY TABLE: [employer] Affirm Prone Biopsy System. LESION: 2 separate groupings of calcifications. LOCAL ANESTHESIA: 16 mL 1% lidocaine; 30 mL 1% lidocaine with epinephrine. DERMATOTOMY: Single skin lance dermatotomy performed x2. NEEDLE: Neon [employer] 9-gauge vacuum assisted core biopsy device. APPROACH: craniocaudal. TARGETING: Combination of digital breast tomosynthesis and stereotactic digital mammography used for targeting. CORES: 48. CLIP: T shaped medial and cylinder lateral biopsy site. SPECIMEN RADIOGRAPH: Specimen radiograph is taken in separate room using digital mammography. The index calcifications are in the excised cores. X2 POST PROCEDURE UNILATERAL DIGITAL MAMMOGRAM: The post biopsy mammogram is performed in separate room using separate digital mammography equipment from the biopsy procedure. 90 degree mediolateral and craniocaudal views are obtained. The breasts are heterogeneously dense, which may obscure small masses (breast composition category: c). The clip markers are in position. The calcifications are markedly decreased at the biopsy site. No gross hematoma. The patient tolerated the procedure well. No immediate complications. Home instructions reviewed with the patient. Final pathology results are pending. MM/MM stereotactic biopsy ea add IMPRESSION: 1. Digital tomosynthesis-guided core biopsy right breast with clip placement. 2. Specimen radiograph taken and post procedure mammogram. There is satisfactory positioning of the 2 biopsy clips 3. Final pathology results pending. An addendum report will be issued.
--- NOTE | ~2021-05-05 | MM_ITS ---
EXAMINATION: STEREOTACTIC TOMOSYNTHESIS-GUIDED VACUUM-ASSISTED BREAST BIOPSY, RIGHT BREAST X2 SPECIMEN RADIOGRAPH, RIGHT POST PROCEDURE DIGITAL MAMMOGRAM, RIGHT CLINICAL INFORMATION: 2 indeterminate grouping of calcifications superior right breast. COMPARISON: May 01, 2021 and studies dating back to October 13, 2011. TECHNIQUE/PROCEDURE: Informed consent was obtained from the patient after discussion of the benefits, risks, and alternatives to biopsy today. Patient appeared to understand. Gave opportunity for questions. Patient signed consent form. BIOPSY TABLE: [email or web address] Aff[employer]one Biopsy System. LESION: 2 separate groupings of calcifications. LOCAL ANESTHESIA: 16 mL 1% lidocaine; 30 mL 1% lidocaine with epinephrine. DERMATOTOMY: Single skin lance dermatotomy performed x2. NEEDLE: [employer] 9-gauge vacuum assisted core biopsy device. APPROACH: craniocaudal. TARGETING: Combination of digital breast tomosynthesis and stereotactic digital mammography used for targeting. CORES: 48. CLIP: T shaped medial and cylinder lateral biopsy site. SPECIMEN RADIOGRAPH: Specimen radiograph is taken in separate room using digital mammography. The index calcifications are in the excised cores. X2 POST PROCEDURE UNILATERAL DIGITAL MAMMOGRAM: The post biopsy mammogram is performed in separate room using separate digital mammography equipment from the biopsy procedure. 90 degree mediolateral and craniocaudal views are obtained. The breasts are heterogeneously dense, which may obscure small masses (breast composition category: c). The clip markers are in position. The calcifications are markedly decreased at the biopsy site. No gross hematoma. The patient tolerated the procedure well. No immediate complications. Home instructions reviewed with the patient. Final pathology results are pending. MM/MM stereotactic biopsy RT IMPRESSION: 1. Digital tomosynthesis-guided core biopsy right breast with clip placement. 2. Specimen radiograph taken and post procedure mammogram. There is satisfactory positioning of the 2 biopsy clips 3. Final pathology results pending. An addendum report will be issued.
[2021-05-05] MEDS: Sodium Bicarbonate 8.4% 50 MEQ/50 ML VIAL SUBCUT (15:19)
[2021-05-05] MEDS: Lidocaine HCl 1 % 20 ML VIAL 18 ML SUBCUT (15:20)
== END 2021-05-05 13:12 | disposition home or self-care (01) ==
LOC: HO.MAMMO 13:11
PROVIDERS: Visit Provider Nurse Practitioner Family
DX: R92.1 Mammographic calcification found on diagnostic imaging of breast (principal)
CPT/HCPCS: 19081; 19082; 88305

== ENCOUNTER 2021-05-07 11:05 | Emergency (ER) | payer BC, SELFPAY ==
[2021-05-07 11:08] VITALS: BP 147/87; PULSE 73; RESP 18; TEMP 36.6; O2SAT 98; BMI 31.6
--- NOTE | 2021-05-07 12:01 | ED_ITS ---
HPI - Skin/Abscess/Foreign Bdy General Chief complaint: Skin/Abscess/Foreign Body Stated complaint: Post Surgery possible hematoma? Time Seen by Provider: 05/07/21 11:46 Source: patient Mode of arrival: ambulatory Limitations: no limitations History of Present Illness HPI narrative: 55-year-old female with history of AFib on Xarelto here with reports of right breast swelling and bruising. Patient tells me on May 05 she had a right breast biopsy done by Interventional here at [facility]. She had 2 sites biopsied at that time. She was instructed to stop her Xarelto prior to the procedure with her last dose on Tuesday. Patient tells me yesterday she noticed bruising and swelling over the right breast. Today it was continued although not worsened and she attempted to call her primary care doctor but was unable to see anyone today. [facility] and was recommended she come into the emergency department for an evaluation. Patient tells me she did resume her Xarelto on Tuesday evening after the procedure Related Data Home Medications Medication Instructions Recorded Confirmed lorazepam 0.5 mg tablet 1 tab PO BID PRN 12/06/19 11/12/20 triamcinolone acetonide 0.1 % See Rx Instructions .ROUTE .COMPLEX 12/06/19 11/12/20 topical cream duloxetine 60 mg capsule,delayed 60 mg PO DAILY 05/15/20 11/12/20 release montelukast 10 mg tablet 10 mg PO DAILY 05/15/20 11/12/20 cetirizine 10 mg capsule (Zyrtec) 10 mg PO DAILY PRN 03/31/21 norethindrone (contraceptive) 0.35 0.35 mg PO DAILY 03/31/21 mg tablet Previous Rx's Medication Instructions Recorded diltiazem HCl 180 mg 180 mg PO DAILY 90 Days #90 cap 11/11/20 capsule,extended release 24 hr rivaroxaban 20 mg tablet (Xarelto) 20 mg PO QPM 90 Days #90 tab 03/13/21 cyclobenzaprine 10 mg tablet 10 mg PO BEDTIME #14 tab 03/31/21 meloxicam 15 mg tablet 15 mg PO DAILY #7 tab 03/31/21 erythromycin 5 mg/gram (0.5 %) eye 0.5 inch OPHTHALMIC (EYE) TID #1 g 04/06/21 ointment Allergies Allergy/AdvReac Type Severity Reaction Status Date / Time Sulfa (Sulfonamide Allergy Intermediate rash Verified 04/06/21 15:29 Antibiotics) [SULFA (SULFONAMIDE ANTIBIOTICS)] amitriptyline Allergy Unknown lethargy Verified 04/06/21 15:29 codeine [CODEINE] Allergy Unknown RASH Verified 04/06/21 15:29 naproxen [From NAPROSYN] Allergy Unknown RASH Verified 04/06/21 15:29 Review of Systems Review of Systems: Yes all other systems are reviewed and are negative Constitutional: Constitutional: Reports no additional constitutional complaints, Denies body ache(s), Denies chills, Denies fever(s), Denies headache(s) and Denies weakness Eyes: Eyes: Reports no additional eye complaints and Denies change in vision ENT: Reports system reviewed and no additional complaints, except as documented, Denies dizziness, Denies headache(s), Denies nasal congestion, Denies nasal discharge and Denies neck pain Cardiovascular: Cardiovascular: Reports no additional cardiovascular complaints, Denies chest pain, Denies leg edema and Denies dyspnea Respiratory: Respiratory: Reports no additional respiratory complaints, Denies cough and Denies dyspnea Gastrointestinal: Gastrointestinal: Reports no additional gastrointestinal complaints, Denies abdominal pain, Denies diarrhea, Denies nausea and Denies vomiting Genitourinary: Genitourinary: Reports no additional female genitourinary comp laints and Denies urinary incontinence Musculoskeletal: Musculoskeletal: Reports no additional musculoskeletal complaints, Denies back pain, Denies arthralgias, Denies joint swelling, Denies neck pain, Denies numbness and Denies tingling Integumentary/Breasts: Skin/Breast: Reports system reviewed and no additional complaints, except as docu and Denies rash Neurologic: Reports system reviewed and no additional complaints, except as documented, Denies Abnormal speech present, Denies dizziness, Denies headache(s), Denies numbness, Denies tingling and Denies weakness PMFSH Past Medical History Attestation statement: The following information was validated with the patient. Source: old records reviewed and nursing notes reviewed Medical History Asthma Diabetes Obstructive sleep apnea Paroxysmal atrial fibrillation SVT (supraventricular tachycardia) Surgical History Hx of lumbosacral spine surgery Family History Family History Father Diabetes Mother Diabetes CVD (cardiovascular disease) CHF (congestive heart failure) HTN (hypertension) Social History Social History Alcohol intake: unknown Advance Directives: No Advance Directives Information Provided: No Physical Exam Vital Signs: Vital Signs: Last Vital Signs Temp 97.9 F 05/07/21 11:08 Pulse 73 05/07/21 11:08 Resp 18 05/07/21 11:08 BP 147/87 H 05/07/21 11:08 Pulse Ox 98 05/07/21 11:08 BMI result Body Mass Index 31.6 Const: General: cooperative, healthy appearing, comfortable and no acute distress Orientation/consciousness: patient oriented x3 Limitations: no limitations HEENT: Head: Yes normal to inspection Ears: hearing grossly normal bilaterally General nose exam: Normal external nose present Face and sinus: Yes normal facial exam Mouth: Normal oral and palatal mucosa present Throat: Yes posterior oropharynx normal Eyes: General: appearance normal, both eyes and all related structures Pupils: Equal, round and reactive pupils present Neck: Neck: Yes normal visual inspection Chest: Chest palpation & inspection: normal inspection of the chest Chest/axillae images: 1. Small hematoma noted at the biopsy site. There is some local tenderness. This site is firm. It is local. Resp: Effort & Inspection: normal respiratory effort Auscultation: clear to auscultation bilaterally Cardio: Rate: regular rate Rhythm: regular rhythm Peripheral pulses: Peripheral pulses 2+ throughout GI: Inspection: Yes normal to inspection Palpation (GI): Soft to palpation and nontender Auscultation: normal bowel sounds Back/Spine/Pelvis: Thoracic/Lumbar Spine: thoracic and lumbar spine normal to inspection Skin: General skin exam: no rashes or lesions noted Neuro: General: patient oriented x3, no focal motor deficits and normal sensation to monofilament Cranial nerves: Yes Equal, round and reactive pupils present Cognition (Neuro): normal cognition Speech: No Abnormal speech present Gait exam (Neuro): Normal gait present Motor exam (neuro): 5/5 motor strength present throughout Extrem: General: Yes normal to inspection Course Course Course Narrative: 55-year-old female who is on Xarelto here with right breast swelling and bru ising after having a biopsy on Tuesday. On exam there is a local hematoma. Will check CBC. If stable patient can be discharged home 1230-CBC unchanged from previous (02/17/21). Plan for discharge home with recommending ice and Tylenol for pain. She was instructed to return for any increasing in swelling and pain. Reviewed worrisome signs and symptoms of when to return to the emergency department. Comfortable discharge home. MDM - Skin/Abscess/Foreign Bdy Medical Records Attestation: I reviewed the patient's medical records. Lab Data Attestation: I reviewed the patient's lab results. Result diagrams: 05/07/21 12:07 Labs: Lab Results 05/07/21 Range/Units 12:07 WBC 5.3 (4.8-10.8) X10*3/uL RBC 4.46 (4.20-5.50) X10*6/uL Hgb 13.2 (12.0-16.0) g/dl Hct 39.5 (37.0-47.0) % MCV 88.6 (80.0-98.0) fL MCH 29.6 (27.0-33.0) pg MCHC 33.4 (31.0-35.0) g/dl RDW 11.9 (11.0-16.0) % Plt Count 280 (160-400) X10*3/uL MPV 9.7 (9.4-12.3) fL Immature Gran % (Auto) 0.2 (0.0-0.4) % Neut % (Auto) 60.4 (45-73) % Lymph % (Auto) 30.2 (20-40) % Edgar % (Auto) 7.3 (2-11) % Eos % (Auto) 1.3 (0-4) % Baso % (Auto) 0.6 (0-2) % Lymph # (Auto) 1.6 (1.2-4.9) X10*3/uL Edgar # (Auto) 0.4 (0.1-1.2) X10*3/uL Eos # (Auto) 0.1 (0.0-0.4) X10*3/uL Baso # (Auto) 0.0 (0.0-0.2) X10*3/uL Abs Immat Gran (auto) 0.01 (0.00-0.03) X10*3/uL Absolute Neuts (auto) 3.2 (2.0-8.3) x10*3/uL Absolute Nucleated RBC 0.000 (0.0-0.012) X10*3/uL Nucleated RBC % (auto) 0.0 (0.0-0.2) /100WBC Discharge Plan Discharge Clinical Impression: Breast hematoma Patient Disposition: Home, Self-Care Instructions: Hematoma (ED) Additional Instructions: You may continue your Xarelto Ice to the area as needed Tylenol for pain as needed Follow-up with her primary care doctor Prescriptions: No Action diltiazem HCl 180 mg capsule,extended release 24hr 180 mg PO DAILY 90 Days Qty: 90 3RF Xarelto 20 mg tablet 20 mg PO QPM 90 Days Qty: 90 3RF triamcinolone acetonide 0.1 % cream See Rx Instructions .ROUTE .COMPLEX 0RF Rx Instructions: apply bid to affected areas lorazepam 0.5 mg tablet 1 tab PO BID PRN (Reason: anxiety) 0RF duloxetine 60 mg capsule,delayed release(DR/EC) 60 mg PO DAILY 0RF montelukast 10 mg tablet 10 mg PO DAILY 0RF Zyrtec 10 mg capsule 10 mg PO DAILY PRN0RF norethindrone (contraceptive) 0.35 mg tablet 0.35 mg PO DAILY 0RF meloxicam 15 mg tablet 15 mg PO DAILY Qty: 7 0RF cyclobenzaprine 10 mg tablet 10 mg PO BEDTIME Qty: 14 0RF erythromycin 5 mg/gram (0.5 %) ointment 0.5 inch ophthalmic (eye) TID Qty: 1 0RF Referrals: Alma Herrera NP [Primary Care Provider] - 1 week (For persistent symptoms)
[2021-05-07 12:11] LABS: MANUAL DIFF FLAG NO
[2021-05-07 12:13] LABS: Basophils Percent Auto 0.6 % (0-2); Eosinophils Absolute Auto 0.1 X10*3/uL (0.0-0.4); Eosinophils Percent Auto 1.3 % (0-4); Hematocrit 39.5 % (37.0-47.0); Hemoglobin 13.2 g/dl (12.0-16.0); Imm Gran Abs Auto 0.01 X10*3/uL (0.00-0.03); Imm Gran Pct Auto 0.2 % (0.0-0.4); Lymphocytes Absolute Auto 1.6 X10*3/uL (1.2-4.9); Lymphocytes Percent Auto 30.2 % (20-40); Mean Corpuscular HGB Conc 33.4 g/dl (31.0-35.0); Mean Corpuscular Hemoglobin 29.6 pg (27.0-33.0); Mean Corpuscular Volume 88.6 fL (80.0-98.0); Mean Platelet Volume 9.7 fL (9.4-12.3); Monocytes Absolute Auto 0.4 X10*3/uL (0.1-1.2); Monocytes Percent Auto 7.3 % (2-11); Neutrophils Absolute Auto 3.2 x10*3/uL (2.0-8.3); Neutrophils Percent Auto 60.4 % (45-73); Platelet Count 280 X10*3/uL (160-400); Red Blood Count 4.46 X10*6/uL (4.20-5.50); Red Cell Distribution Width 11.9 % (11.0-16.0); White Blood Count 5.3 X10*3/uL (4.8-10.8)
--- NOTE | 2021-05-07 12:55 | PC.NURSE ---
PT EVALUATED BY PROVIDER. PLAN IS FOR DC HOME. PT AGREEABLE TO PLAN. DC PAPERWORK GIVEN TO PATIENT BY VIGNESH GEIGER
== END 2021-05-07 12:20 | disposition home or self-care (01) ==
PROVIDERS: Nurse Practitioner Family; Emergency Provider Emergency Medicine; PCP Nurse Practitioner Family
DX: L76.32 Postprocedural hematoma of skin and subcutaneous tissue following other procedure (principal); Y84.8 Other medical procedures as the cause of abnormal reaction of the patient, or of later complication, without mention of misadventure at the time of the procedure; Y81.0 Diagnostic and monitoring general- and plastic-surgery devices associated with adverse incidents; Y92.530 Ambulatory surgery center as the place of occurrence of the external cause; E11.9 Type 2 diabetes mellitus without complications; I48.0 Paroxysmal atrial fibrillation; Z79.01 Long term (current) use of anticoagulants
CPT/HCPCS: 36415; 85025; 99283

== ENCOUNTER → 2021-10-15 14:56 | Outpatient (REF) | payer BC, SELFPAY ==
--- NOTE | 2021-10-15 14:59 | CA_ITS ---
Transthoracic Echocardiogram Patient (Last, First, Middle): Keyla Armando, Gender: Female Date of : 1965 Age: 56 Procedure Date: 10/15/2021 Procedure Type: Transthoracic Echocardiogram Location: OP Height: 165.1 cm Weight: 83.01 kg BSA: 1.90 m2 Heart Rate: bpm BP: 140 / 75 mmHg Television Director: DENILSON Referring MD: Robert Viera MD Story Editor: Robert Veira MD Symptoms: I48.0 - Paroxysmal atrial fibrillation Study Quality: Adequate ECG Rhythm: Sinus Conclusions: - 1. Normal LV systolic function with impaired relaxation filling pattern 2. Normal cardiac valvular Doppler 3. Normal RV systolic pressure 4. No pericardial effusion Findings Left Ventricle Normal left ventricular size, thickness, and systolic function. The visually estimated ejection fraction is between 55-60%. Spectral Doppler is indicative of an impaired relaxation filling pattern. E/E prime ratio is between 8 and 15 consistent with indeterminate filling pressures. Peak GLS is -15.4%, which is reduced. Right Ventricle Normal right ventricular cavity size and systolic function. Atria The left atrium is normal in size. There is lipomatous hypertrophy of the interatrial septum. There is no evidence of interatrial shunt. The right atrium is normal in size. Aortic Valve The aortic valve structure and function is likely normal. There is no aortic valve stenosis. There is no aortic valve regurgitation. Mitral Valve There is mild anterior and posterior mitral leaflet thickening. There is mild mitral annular calcification. There is trace mitral valve regurgitation. There is no mitral valve stenosis. Pulmonic Valve The pulmonic valve was not well visualized. Tricuspid Valve Likely normal tricuspid valve structure and function. There is trace tricuspid valve regurgitation. The right ventricular systolic pressure is normal. The right ventricular systolic pressure is 18 mmHg. Normal right atrial pressure. There is no evidence of pulmonary hypertension. Great Vessels All visible segments of the aorta are normal in size. The pulmonary artery was not well visualized. Venous The inferior vena cava is normal in size and collapses greater than 50% with inspiration. Pericardium/Pleural There is no evidence of pericardial effusion. Prior Study Comparison No significant change compared to prior study dated: 04/01/2020. Measurements 2D Linear Measurements IVSd: 0.96 0.6-0.9/0.6-1.0 cm LVIDd: 4.02 3.9-5.3/4.2-5.9 cm LVIDd Index: 2.12 2.4-3.2/2.2-3.1 cm/m2 LVIDs: 3.41 2.0-3.6 cm LVPWd: 1.03 0.7-1.1 cm LA Diam: 3.70 2.7-3.8/3.0-4.0 cm LAIDs Index: 1.95 1.5-2.3 cm/m2 LV Mass: 158.54 67-162/88-224 g LV Mass Index: 83.44 43-95/49-115 g/m2 LVOT Diam: 2.10 3.0+(-)1.3 cm 2D Systolic Function EF 4C: 55.50 >55% EF 2C: 50.50 >55% Mitral Valve MV Pk E: 0.86 MV PK A: 1.09 MV Decel Time: 286.00 E/A: 0.80 E'Lateral: 8.38 E'Medial: 7.62 E/E' Med: 11.30 E/E' Lat: 10.30 PHT: 84.00 MVA PHT: 2.62 Decel Perkins: 3.02 Aortic Valve AoV Pk Emil: 1.57 AoV Mn Emil: 1.10 AoV VTI: 0.28 AoV Pk Grad: 10.00 Aov Mn Grad: 5.00 HAL Cont.VTI: 2.52 LVOT LVOT Pk Emil: 1.07 LVOT Mn Emil: 0.74 LVOT VTI: 0.21 LVOT Pk Grad: 5.00 LVOT Mn Grad: 3.00 LVOT Diam: 2.10 LVOT Area: 3.46 Diastolic Function MV Pk E: 0.86 MV Pk A: 1.09 E/A: 0.80 E'Medial: 7.62 E/E' Med: 11.30 E' Laterial: 8.38 E/E' Lat: 10.30 Right Ventricle TAPSE (mm): 18.90 TVS' Emil: 11.00 Tricuspid Valve TR Pk Emil: 1.91 TR Pk Grad: 15.00 RA Press: 3.00 RVSP: 18.00 Great Vessels Aorta Sinus of Valsalva: 2.70 2.0-3.5 cm Ao Asc: 3.20 2.1-3.4 cm Pulmonary Valve PV Pk Emil: 0.80 Peak PV Grad: 3.00 Updated in Other Vendor System with Status of Final Robert Viera MD electronically signed on 10/16/2021 12:34:04 PM with status of Final
== END ==
LOC: HO.CARD 14:56
PROVIDERS: PCP Nurse Practitioner Family; Visit Provider Internal Medicine Cardiovascular Disease
DX: I48.0 Paroxysmal atrial fibrillation (principal)
CPT/HCPCS: 93306; 93356

== ENCOUNTER 2021-10-23 10:03 | Emergency (ER) | payer BC, SELFPAY ==
--- NOTE | ~2021-10-23 | MR_ITS ---
EXAMINATION: MR BRAIN WITHOUT CONTRAST CLINICAL INFORMATION: Right-sided weakness COMPARISON: Same day CTA head and neck TECHNIQUE: Multiplanar multisequence MR imaging of the brain was obtained without intravenous contrast. FINDINGS: There is no acute infarct on diffusion-weighted imaging. There is no intracranial hemorrhage on iron-sensitive imaging. No extra-axial collection or mass effect/herniation. There are a few scattered foci of supratentorial white matter T2/FLAIR signal abnormality which are nonspecific but most commonly related to chronic small vessel ischemia and within normal limits for age. No hydrocephalus. Congenital asymmetry of the lateral ventricles. The major flow voids at the skull base are preserved. Partially empty sella The cerebellar tonsils are normally positioned. The craniocervical junction is normal. Marrow signal is within normal limits. The visualized soft tissues are without significant abnormality. No signal abnormality within the paranasal sinuses or within the mastoid air cells. MR/MR head/brain wo con IMPRESSION: No acute infarct or other acute intracranial abnormality
--- NOTE | ~2021-10-23 | CT_ITS ---
EXAMINATION: CT ANGIOGRAM OF THE HEAD CT ANGIOGRAM OF THE NECK CLINICAL INFORMATION: Right facial tingling, resolved. COMPARISON: CT scan of the head 02/17/2021. From April MRI scan of the brain 11/04/2011. TECHNIQUE: A noncontrast axial CT scan of the head was obtained. Test bolus series followed by intravenous administration 70 mL of Omnipaque 350. Helical imaging was performed in the axial plane from the mediastinum to the skull vertex. Delayed postcontrast CT scan of the head was obtained. The degree of stenosis is based off NASCET criteria. The data was processed at the radiation therapy technologist workstation for generation of MIP images. Three-dimensional volume rendered reformatted images were also generated at an offline 3-D workstation. This CT examination was performed using dose optimization techniques as appropriate, variously including the following: *Automated exposure control *Adjustment of mA and/or kV according to patient size (this includes techniques or standardized protocols for targeted exams where dose is matched to indication/reason for exam; i.e. extremities or head) *Use of iterative reconstruction technique DLP: 2302 mGy-cm. FINDINGS: CT Head: There is no evidence of acute intracranial hemorrhage or territorial infarction. No abnormal mass-effect or midline shift is seen. Bland to white matter differentiation is well preserved. No extra-axial fluid collections are identified. There is no abnormal enhancement. The study demonstrates slight asymmetry of the bodies of the lateral ventricles, slightly more prominent on the left, unchanged. The study demonstrates an equivocal cyst in the superior cerebellar cistern, also unchanged. There are likely chronic gliotic changes in the left lateral cerebellar hemisphere, unchanged. There is no abnormal enhancement noted following intravenous contrast administration. There is a partially empty sella. The osseous structures and soft tissues are normal. The mastoid air cells are well-aerated. There is mucoperiosteal thickening in the right sphenoid sinus. CTA Neck: There is a common origin of the left common carotid and brachiocephalic arteries which is a normal variant. The great vessels of the neck are widely patent. The subclavian arteries appear normal bilaterally. The common carotid arteries have normal caliber. The carotid bifurcations bilaterally appear normal. The internal carotid arteries in the neck bilaterally have uniform and normal caliber. The origins of both vertebral arteries are well seen and appear normal. Both vertebral arteries are widely patent and demonstrate good opacification throughout their cervical course. The vertebral arteries are codominant. Nonvascular: The visualized lung horowitz are well-aerated. There is no cervical lymphadenopathy. The thyroid gland appears prominent, particularly the right lobe extending posteriorly and inferiorly. There is no cervical lymphadenopathy. There are multilevel spondylotic and facet arthropathic changes in the cervical spine. CTA Head: The intracranial internal carotid arteries and their bifurcations appear normal. The middle and anterior cerebral arteries bilaterally demonstrate normal caliber with no evidence of focal stenosis, aneurysm or vascular malformation. There is normal arborization of the middle cerebral artery branches. The anterior communicating artery is normal. In the posterior circulation, the vertebral arteries are codominant and the intradural vertebral arteries have uniform caliber. The basilar artery appears normal. The posterior cerebral arteries have normal caliber. The venous sinuses opacify normally. CT/CT angio head neck IMPRESSION: CT head and neck: 1. There are no acute bleeds or territorial infarcts. 2. There are no masses or areas of abnormal enhancement. 3. There is no cervical lymphadenopathy. 4. The thyroid gland is mildly prominent, which could be further evaluated with nonemergent thyroid ultrasound. CTA head and neck: 1. There are no flow-limiting stenoses in the upper chest or neck circulation. 2. Intracranially there are no focal stenosis, aneurysms or vascular malformations.
[2021-10-23 10:20] VITALS: BP 122/76; BP 164/100; PULSE 103; PULSE 88; RESP 14; TEMP 37.2; O2SAT 98; O2SAT 99; BMI 30.4
--- NOTE | 2021-10-23 10:29 | ECG_ITS ---
Test Reason : weakness Blood Pressure : / mmHG Vent. Rate : 075 BPM Atrial Rate : 075 BPM P-R Int : 156 ms QRS Dur : 094 ms QT Int : 408 ms P-R-T Axes : 037 015 043 degrees QTc Int : 455 ms Normal sinus rhythm Normal ECG When compared with ECG of 17-FEB-2021 12:06, No significant change was found Referred By: Gini Jones Electronically Signed By:THOMAS PIERCE
[2021-10-23 11:05] LABS: Basophils Percent Auto 0.6 % (0-2); Eosinophils Absolute Auto 0.1 X10*3/uL (0.0-0.4); Eosinophils Percent Auto 2.8 % (0-4); Hematocrit 37.2 % (37.0-47.0); Hemoglobin 12.8 g/dl (12.0-16.0); Imm Gran Abs Auto 0.02 X10*3/uL (0.00-0.03); Imm Gran Pct Auto 0.4 % (0.0-0.4); Lymphocytes Absolute Auto 1.5 X10*3/uL (1.2-4.9); Lymphocytes Percent Auto 30.5 % (20-40); MANUAL DIFF FLAG NO; Mean Corpuscular HGB Conc 34.4 g/dl (31.0-35.0); Mean Corpuscular Hemoglobin 29.7 pg (27.0-33.0); Mean Corpuscular Volume 86.3 fL (80.0-98.0); Monocytes Absolute Auto 0.4 X10*3/uL (0.1-1.2); Monocytes Percent Auto 7.2 % (2-11); Neutrophils Absolute Auto 2.9 x10*3/uL (2.0-8.3); Neutrophils Percent Auto 58.5 % (45-73); Platelet Count 264 X10*3/uL (160-400); Red Blood Count 4.31 X10*6/uL (4.20-5.50); Red Cell Distribution Width 12.2 % (11.0-16.0)
[2021-10-23 11:13] LABS: INTERNATIONAL NORM RATIO 1.1 (0.9-1.1); Prothrombin Time 13.1 SEC (10.0-13.1)
--- NOTE | 2021-10-23 11:15 | ED.GENADULT ---
HPI - General Adult General Chief complaint: General Medical Stated complaint: TINGLING IN FACE AND BODY,RT SIDE ONLY Time Seen by Provider: 10/23/21 10:28 Source: patient Mode of arrival: ambulatory History of Present Illness HPI narrative: This is a 56-year-old female who presents after having experienced a 30 minute period of right facial tingling yesterday while at work that was associated with a headache and mild vertigo that she states spread to the right side of her body and then completely resolved. She states she has had shingles before and denies any burning sensation or visual disturbance. Patient states that then again today the same symptoms recurred and have at this time resolved. Patient's past medical history is significant for paroxysmal atrial fibrillation she denies any associated palpitations during this time or shortness of breath and she is currently on Xarelto. Related Data Home Medications Medication Instructions Recorded Confirmed lorazepam 0.5 mg tablet 1 tab PO BID PRN anxiety 12/06/19 11/12/20 triamcinolone acetonide 0.1 % See Rx Instructions .Route .COMPLEX 12/06/19 11/12/20 topical cream duloxetine 60 mg capsule,delayed 60 mg PO DAILY 05/15/20 11/12/20 release montelukast 10 mg tablet 10 mg PO DAILY 05/15/20 11/12/20 cetirizine 10 mg capsule (Zyrtec) 10 mg PO DAILY PRN 03/31/21 norethindrone (contraceptive) 0.35 0.35 mg PO DAILY 03/31/21 mg tablet Previous Rx's Medication Instructions Recorded rivaroxaban 20 mg tablet (Xarelto) 20 mg PO QPM 90 days #90 tabs 03/13/21 cyclobenzaprine 10 mg tablet 10 mg PO BEDTIME #14 tabs 03/31/21 meloxicam 15 mg tablet 15 mg PO DAILY #7 tabs 03/31/21 erythromycin 5 mg/gram (0.5 %) eye 0.5 inch ophthalmic (eye) TID #1 g 04/06/21 ointment diltiazem HCl 180 mg 180 mg PO DAILY 90 days #90 caps 09/10/21 capsule,extended release 24 hr Allergies Allergy/AdvReac Type Severity Reaction Status Date / Time Sulfa (Sulfonamide Allergy Intermediate rash Verified 04/06/21 15:29 Antibiotics) [SULFA (SULFONAMIDE ANTIBIOTICS)] amitriptyline Allergy Unknown lethargy Verified 04/06/21 15:29 codeine [CODEINE] Allergy Unknown RASH Verified 04/06/21 15:29 naproxen [From NAPROSYN] Allergy Unknown RASH Verified 04/06/21 15:29 Review of Systems Review of Systems: Pertinent positives and negatives as stated in HPI 10 point review of systems is otherwise negative. [facility] Past Medical History Source: nursing notes reviewed Medical History Asthma Diabetes Obstructive sleep apnea Paroxysmal atrial fibrillation SVT (supraventricular tachycardia) Surgical History Hx of lumbosacral spine surgery Family History Family History Father Diabetes Mother Diabetes CVD (cardiovascular disease) CHF (congestive heart failure) HTN (hypertension) Social History Social History Alcohol intake: unknown Advance Directives: No Advance Directives Information Provided: Yes Physical Exam ED Vital Signs: Vital Signs - 24 hr 10/23/21 10:20 Temperature 98.9 F Pulse Rate 88 Respiratory Rate 14 Blood Pressure 122/76 Pulse Oximetry 98 Oxygen Delivery Method Room Air BMI result Body Mass Index 30.4 VITAL SIGNS: Reviewed. GENERAL: Well developed, well nourished, in no acute distress. HEAD: Normocephalic/atraumatic EYES: PERRLA, EOMI no nystagmus EARS: Ext canals without abnormality, TMs non-bulging and non-erythematou, no vesicles noted NOSE: Nares patent bilateral OROPHARYNX: no oral lesions noted, posterior pharynx clear NECK: Supple, no adenopathy LUNGS: Normal breath sounds. No adventitious sounds or accessory muscle use. SpO2<98> CARDIOVASCULAR: Regular rate and rhythm without noted murmurs, no JVD or lower extremity edema. ABDOMEN: Soft, non-tender, non-distended with bowel sounds. MUSCULOSKELETAL: No tenderness, deformities, or effusions noted on gross inspection. EXTREMITIES: No cyanosis, clubbing or edema. SKIN: Inspection of the skin reveals no rashes NEUROLOGIC: Alert and oriented x 4. Strength and sensation to light touch were grossly intact x 4, no facial asymmetry, no pronator drift, cranial nerves 2-12 are grossly intact and cerebellar testing is benign in nature. Course Course Course Narrative: 56-year-old female with history and clinical presentation concerning for possible TIA as asymptomatic at present, less likely felt to be anxiety or shingles. Patient is already on anticoagulation for pA-fib, will obtain basic labs, EKG demonstrates NSR currently. Signed out to Dr Ross. Medical Decision Making Lab Data Result diagrams: 10/23/21 10:54 10/23/21 10:54 Labs: Lab Results 10/23/21 10/23/21 10/23/21 Range/Units 10:54 10:54 10:54 WBC 5.0 (4.8-10.8) X10*3/uL RBC 4.31 (4.20-5.50) X10*6/uL Hgb 12.8 (12.0-16.0) g/dl Hct 37.2 (37.0-47.0) % MCV 86.3 (80.0-98.0) fL MCH 29.7 (27.0-33.0) pg MCHC 34.4 (31.0-35.0) g/dl RDW 12.2 (11.0-16.0) % Plt Count 264 (160-400) X10*3/uL MPV 10.0 (9.4-12.3) fL Immature Gran % (Auto) 0.4 (0.0-0.4) % Neut % (Auto) 58.5 (45-73) % Lymph % (Auto) 30.5 (20-40) % Nobles % (Auto) 7.2 (2-11) % Eos % (Auto) 2.8 (0-4) % Baso % (Auto) 0.6 (0-2) % Lymph # (Auto) 1.5 (1.2-4.9) X10*3/uL Nobles # (Auto) 0.4 (0.1-1.2) X10*3/uL Eos # (Auto) 0.1 (0.0-0.4) X10*3/uL Baso # (Auto) 0.0 (0.0-0.2) X10*3/uL Abs Immat Gran (auto) 0.02 (0.00-0.03) X10*3/uL Absolute Neuts (auto) 2.9 (2.0-8.3) x10*3/uL Absolute Nucleated RBC 0.000 (0.0-0.012) X10*3/uL Nucleated RBC % (auto) 0.0 (0.0-0.2) /100WBC PT 13.1 (10.0-13.1) SEC INR 1.1 (0.9-1.1) Sodium 140 (135-145) mmol/L Potassium 4.2 (3.3-5.1) mmol/L Chloride 104 (96-108) mmol/L Carbon Dioxide 27 (22-29) mmol/L Anion Gap 13 (12-20) BUN 14 (9-16) mg/dL Creatinine 0.94 (0.5-1.4) mg/dL Estim Creat Clear Calc 71.1 Estimated GFR > 60 Random Glucose 133 H (60-115) mg/dL Calcium 9.0 D (8.4-10.2) mg/dL Total Bilirubin 0.4 (0.0-1.0) mg/dL AST 18 (5-31) U/L ALT 16 (0-31) U/L Alkaline Phosphatase 121 H (39-117) U/L Troponin I High Sens (<3.5-17.0) ng/L Total Protein 6.7 (6.5-8.0) g/dL Albumin 3.9 (3.5-5.0) g/dL /11/05 Range/Units 10:54 WBC (4.8-10.8) X10*3/uL RBC (4.20-5.50) X10*6/uL Hgb (12.0-16.0) g/dl Hct (37.0-47.0) % MCV (80.0-98.0) fL MCH (27.0-33.0) pg MCHC (31.0-35.0) g/dl RDW (11.0-16.0) % Plt Count (160-400) X10*3/uL MPV (9.4-12.3) fL Immature Gran % (Auto) (0.0-0.4) % Neut % (Auto) (45-73) % Lymph % (Auto) (20-40) % Nobles % (Auto) (2-11) % Eos % (Auto) (0-4) % Baso % (Auto) (0-2) % Lymph # (Auto) (1.2-4.9) X10*3/uL Nobles # (Auto) (0.1-1.2) X10*3/uL Eos # (Auto) (0.0-0.4) X10*3/uL Baso # (Auto) (0.0-0.2) X10*3/uL Abs Immat Gran (auto) (0.00-0.03) X10*3/uL Absolute Neuts (auto) (2.0-8.3) x10*3/uL Absolute Nucleated RBC (0.0-0.012) X10*3/uL Nucleated RBC % (auto) (0.0-0.2) /100WBC PT (10.0-13.1) SEC INR (0.9-1.1) Sodium (135-145) mmol/L Potassium (3.3-5.1) mmol/L Chloride (96-108) mmol/L Carbon Dioxide (22-29) mmol/L Anion Gap (12-20) BUN (9-16) mg/dL Creatinine (0.5-1.4) mg/dL Estim Creat Clear Calc Estimated GFR Random Glucose (60-115) mg/dL Calcium (8.4-10.2) mg/dL Total Bilirubin (0.0-1.0) mg/dL AST (5-31) U/L ALT (0-31) U/L Alkaline Phosphatase (39-117) U/L Troponin I High Sens < 3.5 (<3.5-17.0) ng/L Total Protein (6.5-8.0) g/dL Albumin (3.5-5.0) g/dL ECG Data Attestation: I personally reviewed and interpreted this ECG as follows: Prior ECG tracings: available for review Interpretation: Normal sinus rhythm, HR-75, no STEMI, NH/QRS/QTC are within normal limits. Discharge Plan Discharge Clinical Impression: Numbness and tingling of right face Patient Disposition: Still a Patient Prescriptions: No Action Xarelto 20 mg tablet 20 mg PO QPM 90 Days Qty: 90 3RF diltiazem HCl 180 mg capsule,extended release 24hr 180 mg PO DAILY 90 Days Qty: 90 3RF triamcinolone acetonide 0.1 % cream See Rx Instructions .ROUTE .COMPLEX Rx Instructions: apply bid to affected areas lorazepam 0.5 mg tablet 1 tab PO BID PRN (Reason: anxiety) duloxetine 60 mg capsule,delayed release(DR/EC) 60 mg PO DAILY montelukast 10 mg tablet 10 mg PO DAILY Zyrtec 10 mg capsule 10 mg PO DAILY PRN norethindrone (contraceptive) 0.35 mg tablet 0.35 mg PO DAILY meloxicam 15 mg tablet 15 mg PO DAILY Qty: 7 0RF cyclobenzaprine 10 mg tablet 10 mg PO BEDTIME Qty: 14 0RF erythromycin 5 mg/gram (0.5 %) ointment 0.5 inch ophthalmic (eye) TID Qty: 1 0RF
[2021-10-23 11:27] LABS: Alanine Aminotransferase 16 U/L (0-31); Albumin Level 3.9 g/dL (3.5-5.0); Alkaline Phosphatase 121 U/L (39-117); Anion Gap 13 (12-20); Aspartate Amino Transferase 18 U/L (5-31); Bilirubin Total 0.4 mg/dL (0.0-1.0); Blood Urea Nitrogen 14 mg/dL (9-16); Carbon Dioxide 27 mmol/L (22-29); Chloride 104 mmol/L (96-108); Creatinine Clr Calc Pharmacy 71.1; Estimated Glomerular Filt Rate > 60; Glucose Random 133 mg/dL (60-115); Potassium 4.2 mmol/L (3.3-5.1); Sodium 140 mmol/L (135-145); Total Protein 6.7 g/dL (6.5-8.0)
[2021-10-23 11:31] LABS: Troponin-I High Sensitivity < 3.5 ng/L (<3.5-17.0)
[2021-10-23 11:56] VITALS: BP 129/76; PULSE 70; RESP 16; O2SAT 97
[2021-10-23 12:26] LABS: Appearance Urine Clear; Color Urine Yellow; Glucose Urine UA Negative (Negative); Leukocyte Esterase Urine Negative (Negative); Nitrite Urine Negative (Negative); Specific Gravity - Urine 1.015 (1.005-1.025); Urine Blood Negative (Negative); Urine Ketones Negative (Negative); Urine Protein Negative (Neg-Trace)
[2021-10-23] MEDS: iohexoL 350 MG/ML 100 ML INFUS..BTL IV (13:19)
[2021-10-23 14:05] VITALS: BP 130/75; PULSE 71; RESP 14; O2SAT 98
[2021-10-23 15:08] VITALS: BP 142/85; PULSE 77; O2SAT 98
--- NOTE | 2021-10-23 16:32 | ED.GENADULT ---
HPI - General Adult General Chief complaint: General Medical Stated complaint: TINGLING IN FACE AND BODY,RT SIDE ONLY Time Seen by Provider: 10/23/21 10:28 Source: patient Mode of arrival: ambulatory Related Data Home Medications Medication Instructions Recorded Confirmed lorazepam 0.5 mg tablet 1 tab PO BID PRN anxiety 12/06/19 11/12/20 triamcinolone acetonide 0.1 % See Rx Instructions .Route .COMPLEX 12/06/19 11/12/20 topical cream duloxetine 60 mg capsule,delayed 60 mg PO DAILY 05/15/20 11/12/20 release montelukast 10 mg tablet 10 mg PO DAILY 05/15/20 11/12/20 cetirizine 10 mg capsule (Zyrtec) 10 mg PO DAILY PRN 03/31/21 norethindrone (contraceptive) 0.35 0.35 mg PO DAILY 03/31/21 mg tablet Previous Rx's Medication Instructions Recorded rivaroxaban 20 mg tablet (Xarelto) 20 mg PO QPM 90 days #90 tabs 03/13/21 cyclobenzaprine 10 mg tablet 10 mg PO BEDTIME #14 tabs 03/31/21 meloxicam 15 mg tablet 15 mg PO DAILY #7 tabs 03/31/21 erythromycin 5 mg/gram (0.5 %) eye 0.5 inch ophthalmic (eye) TID #1 g 04/06/21 ointment diltiazem HCl 180 mg 180 mg PO DAILY 90 days #90 caps 09/10/21 capsule,extended release 24 hr Allergies Allergy/AdvReac Type Severity Reaction Status Date / Time Sulfa (Sulfonamide Allergy Intermediate rash Verified 04/06/21 15:29 Antibiotics) [SULFA (SULFONAMIDE ANTIBIOTICS)] amitriptyline Allergy Unknown lethargy Verified 04/06/21 15:29 codeine [CODEINE] Allergy Unknown RASH Verified 04/06/21 15:29 naproxen [From NAPROSYN] Allergy Unknown RASH Verified 04/06/21 15:29 [facility] Past Medical History Medical History Asthma Diabetes Obstructive sleep apnea Paroxysmal atrial fibrillation SVT (supraventricular tachycardia) Surgical History Hx of lumbosacral spine surgery Family History Family History Father Diabetes Mother Diabetes CVD (cardiovascular disease) CHF (congestive heart failure) HTN (hypertension) Social History Social History Alcohol intake: unknown Advance Directives: No Advance Directives Information Provided: Yes Physical Exam ED Vital Signs: Vital Signs - 24 hr 10/23/21 10:20 10/23/21 11:56 10/23/21 14:05 Temperature 98.9 F Pulse Rate 88 70 71 Respiratory Rate 14 16 14 Blood Pressure 122/76 129/76 130/75 Pulse Oximetry 98 97 98 Oxygen Delivery Method Room Air Room Air Room Air 10/23/21 15:08 Temperature Pulse Rate 77 Respiratory Rate Blood Pressure 142/85 H Pulse Oximetry 98 Oxygen Delivery Method Room Air BMI result Body Mass Index 30.4 Medical Decision Making Lab Data Result diagrams: 10/23/21 10:54 10/23/21 10:54 Labs: Lab Results 10/23/21 10/23/21 10/23/21 Range/Units 10:54 10:54 10:54 WBC 5.0 (4.8-10.8) X10*3/uL RBC 4.31 (4.20-5.50) X10*6/uL Hgb 12.8 (12.0-16.0) g/dl Hct 37.2 (37.0-47.0) % MCV 86.3 (80.0-98.0) fL MCH 29.7 (27.0-33.0) pg MCHC 34.4 (31.0-35.0) g/dl RDW 12.2 (11.0-16.0) % Plt Count 264 (160-400) X10*3/uL MPV 10.0 (9.4-12.3) fL Immature Gran % (Auto) 0.4 (0.0-0.4) % Neut % (Auto) 58.5 (45-73) % Lymph % (Auto) 30.5 (20-40) % [place] % (Auto) 7.2 (2-11) % Eos % (Auto) 2.8 (0-4) % Baso % (Auto) 0.6 (0-2) % Lymph # (Auto) 1.5 (1.2-4.9) X10*3/uL [place] # (Auto) 0.4 (0.1-1.2) X10*3/uL Eos # (Auto) 0.1 (0.0-0.4) X10*3/uL Baso # (Auto) 0.0 (0.0-0.2) X10*3/uL Abs Immat Gran (auto) 0.02 (0.00-0.03) X10*3/uL Absolute Neuts (auto) 2.9 (2.0-8.3) x10*3/uL Absolute Nucleated RBC 0.000 (0.0-0.012) X10*3/uL Nucleated RBC % (auto) 0.0 (0.0-0.2) /100WBC PT 13.1 (10.0-13.1) SEC INR 1.1 (0.9-1.1) Sodium 140 (135-145) mmol/L Potassium 4.2 (3.3-5.1) mmol/L Chloride 104 (96-108) mmol/L Carbon Dioxide 27 (22-29) mmol/L Anion Gap 13 (12-20) BUN 14 (9-16) mg/dL Creatinine 0.94 (0.5-1.4) mg/dL Estim Creat Clear Calc 71.1 Estimated GFR > 60 Random Glucose 133 H (60-115) mg/dL Calcium 9.0 D (8.4-10.2) mg/dL Total Bilirubin 0.4 (0.0-1.0) mg/dL AST 18 (5-31) U/L ALT 16 (0-31) U/L Alkaline Phosphatase 121 H (39-117) U/L Troponin I High Sens (<3.5-17.0) ng/L Total Protein 6.7 (6.5-8.0) g/dL Albumin 3.9 (3.5-5.0) g/dL Urine Color Urine Appearance Urine pH (5.0-9.0) Ur Specific [place] (1.005-1.025) Urine Protein (Neg-Trace) mg/dL Urine Glucose (UA) (Negative) mg/dL Urine Ketones (Negative) mg/dL Urine Blood (Negative) Urine Nitrite (Negative) Ur Leukocyte Esterase (Negative) 10/23/21 10/23/21 Range/Units 10:54 11:56 WBC (4.8-10.8) X10*3/uL RBC (4.20-5.50) X10*6/uL Hgb (12.0-16.0) g/dl Hct (37.0-47.0) % MCV (80.0-98.0) fL MCH (27.0-33.0) pg MCHC (31.0-35.0) g/dl RDW (11.0-16.0) % Plt Count (160-400) X10*3/uL MPV (9.4-12.3) fL Immature Gran % (Auto) (0.0-0.4) % Neut % (Auto) (45-73) % Lymph % (Auto) (20-40) % [place] % (Auto) (2-11) % Eos % (Auto) (0-4) % Baso % (Auto) (0-2) % Lymph # (Auto) (1.2-4.9) X10*3/uL [place] # (Auto) (0.1-1.2) X10*3/uL Eos # (Auto) (0.0-0.4) X10*3/uL Baso # (Auto) (0.0-0.2) X10*3/uL Abs Immat Gran (auto) (0.00-0.03) X10*3/uL Absolute Neuts (auto) (2.0-8.3) x10*3/uL Absolute Nucleated RBC (0.0-0.012) X10*3/uL Nucleated RBC % (auto) (0.0-0.2) /100WBC PT (10.0-13.1) SEC INR (0.9-1.1) Sodium (135-145) mmol/L Potassium (3.3-5.1) mmol/L Chloride (96-108) mmol/L Carbon Dioxide (22-29) mmol/L Anion Gap (12-20) BUN (9-16) mg/dL Creatinine (0.5-1.4) mg/dL Estim Creat Clear Calc Estimated GFR Random Glucose (60-115) mg/dL Calcium (8.4-10.2) mg/dL Total Bilirubin (0.0-1.0) mg/dL AST (5-31) U/L ALT (0-31) U/L Alkaline Phosphatase (39-117) U/L Troponin I High Sens < 3.5 (<3.5-17.0) ng/L Total Protein (6.5-8.0) g/dL Albumin (3.5-5.0) g/dL Urine Color Yellow Urine Appearance Clear Urine pH 6.0 (5.0-9.0) Ur Specific [place] 1.015 (1.005-1.025) Urine Protein Negative (Neg-Trace) mg/dL Urine Glucose (UA) Negative (Negative) mg/dL Urine Ketones Negative (Negative) mg/dL Urine Blood Negative (Negative) Urine Nitrite Negative (Negative) Ur Leukocyte Esterase Negative (Negative) Discharge Plan Discharge Clinical Impression: Numbness and tingling of right face, TIA (transient ischemic attack) Patient Disposition: Still a Patient Prescriptions: No Action Xarelto 20 mg tablet 20 mg PO QPM 90 Days Qty: 90 3RF diltiazem HCl 180 mg capsule,extended release 24hr 180 mg PO DAILY 90 Days Qty: 90 3RF triamcinolone acetonide 0.1 % cream See Rx Instructions .ROUTE .COMPLEX Rx Instructions: apply bid to affected areas lorazepam 0.5 mg tablet 1 tab PO BID PRN (Reason: anxiety) duloxetine 60 mg capsule,delayed release(DR/EC) 60 mg PO DAILY montelukast 10 mg tablet 10 mg PO DAILY Zyrtec 10 mg capsule 10 mg PO DAILY PRN norethindrone (contraceptive) 0.35 mg tablet 0.35 mg PO DAILY meloxicam 15 mg tablet 15 mg PO DAILY Qty: 7 0RF cyclobenzaprine 10 mg tablet 10 mg PO BEDTIME Qty: 14 0RF erythromycin 5 mg/gram (0.5 %) ointment 0.5 inch ophthalmic (eye) TID Qty: 1 0RF
[2021-10-23] MEDS: Aspirin 81 MG TAB.CHEW PO (17:54)
== END 2021-10-23 20:27 | disposition home or self-care (01) ==
PROVIDERS: Student in an Organized Health Care Education/Training Program; Emergency Provider Emergency Medicine; PCP Nurse Practitioner Family
DX: I48.0 Paroxysmal atrial fibrillation (principal); R20.0 Anesthesia of skin; R51.9 Headache, unspecified; Z79.899 Other long term (current) drug therapy; Z79.01 Long term (current) use of anticoagulants
CPT/HCPCS: 36415; 70496; 70498; 70551; 80053; 81003; 84484; 85025; 85610; 93005; 99284; 99285; Q9967

== ENCOUNTER 2022-03-18 17:22 | Emergency (ER) | payer BC, SELFPAY ==
--- NOTE | ~2022-03-18 | CT_ITS ---
EXAMINATION: CT head/brain wo IV con CLINICAL INFORMATION: Reason for Exam Numbness/tingling COMPARISON: MR brain 10/23/2021 TECHNIQUE: Contiguous axial imaging was performed from the skull base to vertex without intravenous contrast. Sagittal and coronal reformatted images were obtained. This CT examination was performed using dose optimization techniques as appropriate, variously including the following: * Automated exposure control * Adjustment of mA and/or kV according to patient size (this includes techniques or standardized protocols for targeted exams where dose is matched to indication/reason for exam; i.e. extremities or head) Use of iterative reconstruction technique DLP: 577 mGy-cm FINDINGS: No acute osseous or soft tissue abnormality. Paranasal sinus mucosal thickening involving the right sphenoid sinus where it is moderate. Partially empty sella. There is no evidence of acute intracranial hemorrhage or territorial infarction. No abnormal mass effect or midline shift is seen. Bland to white matter differentiation is well preserved. No extra-axial fluid collections are identified. No hydrocephalus. No significant volume loss. There is no abnormal attenuation within the brain parenchyma. CT/CT head/brain wo IV con IMPRESSION: 1. No acute intracranial abnormality.
[2022-03-18 17:25] VITALS: BP 147/78; PULSE 83; RESP 16; TEMP 36.6; O2SAT 98; BMI 32.1
== END 2022-03-18 21:14 | disposition left against medical advice (07) ==
PROVIDERS: Emergency Provider Emergency Medicine; PCP Nurse Practitioner Family
DX: R20.2 Paresthesia of skin (principal)
CPT/HCPCS: 70450; 99282; 99283; 99284

== ENCOUNTER → 2022-07-19 08:26 | Outpatient (REF) | payer BC, SELFPAY ==
--- NOTE | 2022-07-19 08:28 | CA_ITS ---
Acquisition Time: 2022-07-19 08:43:36 Total Exercise Time: 00:07:31 Test Indications: CP UNSPECIFIED Medications: SEE MED SHEET Protocol: HARRY Max HR: 139 BPM 85% of Pred: 163 BPM Max BP: 148/076 mmHG Max Work Load: 9.3 METS Exercise stress test with exercise 7 min 31 sec of Harry protocol, achieving 85% MPHR, with mild sob, 2/10 left chest ache at baseline which increased to 7/10 with exercise, with rare PVC, with normotensive response to exercise, without EKG changes meeting criteria for ischemia. In recovery her chest discomfort quickly improved then resolved. Test reviewed with Dr Rosario. Referred By: Robert Viera Overread By: GYPSY DIAMOND
== END ==
LOC: HO.CARD 08:26
PROVIDERS: PCP Nurse Practitioner Family; Visit Provider Internal Medicine Cardiovascular Disease
DX: R07.9 Chest pain, unspecified (principal)
CPT/HCPCS: 93017

== ENCOUNTER → 2022-08-20 14:30 | Outpatient (BNVA) | payer BC, SELFPAY | PROVIDERS: PCP Nurse Practitioner Family; Visit Provider Nurse Practitioner Family | DX: R07.9 Chest pain, unspecified (principal); I48.0 Paroxysmal atrial fibrillation; I47.1 Supraventricular tachycardia | CPT/HCPCS: 93005 ==

== ENCOUNTER 2022-09-27 13:55 | Emergency (ER) | payer BC, SELFPAY ==
--- NOTE | ~2022-09-27 | XR_ITS ---
EXAMINATION: XR CHEST CLINICAL INFORMATION: Chest pain. COMPARISON: 12/06/2019 chest radiograph. TECHNIQUE: Frontal view of the chest was obtained. FINDINGS: No significant abnormality is noted involving the heart, lungs, mediastinum, bony thorax or soft tissues. XR/XR chest 1V IMPRESSION: No acute cardiopulmonary process.
--- NOTE | 2022-09-27 13:57 | ECG_ITS ---
Test Reason : CP Blood Pressure : / mmHG Vent. Rate : 082 BPM Atrial Rate : 082 BPM P-R Int : 168 ms QRS Dur : 086 ms QT Int : 390 ms P-R-T Axes : 031 -09 032 degrees QTc Int : 455 ms Normal sinus rhythm Normal ECG When compared with ECG of 23-OCT-2021 10:45, No significant change was found Referred By: Tabatha Case Electronically Signed By:THOMAS PIERCE
[2022-09-27 14:38] VITALS: BP 124/82; PULSE 90; RESP 18; TEMP 36.8; O2SAT 99; BMI 32.8
--- NOTE | 2022-09-27 14:39 | ED.GENADULT ---
HPI - General Adult General Chief complaint: Chest Pain Stated complaint: chest pain headache nosebleeds Time Seen by Provider: 09/27/22 18:59 Source: patient, RN notes reviewed and old records reviewed Mode of arrival: ambulatory Limitations: no limitations History of Present Illness HPI narrative: 7-year-old female with past medical history significant for SVT, paroxysmal AFib, obstructive sleep apnea, diabetes presents for evaluation of chest pain and nose bleed. Patient reports that she had 3 nosebleeds last week with the most recent 1 being 3 days ago. She was bleeding on the left nostril She reports having had mild chest pain as well and addition to a frontal headache that radiates to the back of her head She is anticoagulated on Eliquis for her paroxysmal AFib She had not noticed any other bleeding Patient reports that she uses a daily allergy medication due to allergies Related Data Home Medications Medication Instructions Recorded Confirmed lorazepam 0.5 mg tablet 1 tab PO BID PRN anxiety 12/06/19 08/20/22 triamcinolone acetonide 0.1 % See Rx Instructions .Route .COMPLEX 12/06/19 08/20/22 topical cream duloxetine 60 mg capsule,delayed 60 mg PO DAILY 05/15/20 08/20/22 release montelukast 10 mg tablet 10 mg PO DAILY 05/15/20 08/20/22 cetirizine 10 mg capsule (Zyrtec) 10 mg PO DAILY PRN 03/31/21 08/20/22 albuterol sulfate 90 mcg/actuation 0 mcg inhalation 08/20/22 08/20/22 aerosol inhaler Previous Rx's Medication Instructions Recorded rivaroxaban 20 mg tablet (Xarelto) 20 mg PO QPM 90 days #90 tabs 03/26/22 diltiazem HCl 180 mg 180 mg PO DAILY 90 days #90 caps 04/14/22 capsule,extended release 24 hr Allergies Allergy/AdvReac Type Severity Reaction Status Date / Time Sulfa (Sulfonamide Allergy Intermediate rash Verified 08/20/22 14:44 Antibiotics) [SULFA (SULFONAMIDE ANTIBIOTICS)] amitriptyline Allergy Unknown lethargy Verified 08/20/22 14:44 codeine [CODEINE] Allergy Unknown RASH Verified 08/20/22 14:44 naproxen [From NAPROSYN] Allergy Unknown RASH Verified 08/20/22 14:44 Review of Systems Constitutional: Constitutional: Denies chills, Denies fever(s) and Reports headache(s) ENT: Reports headache(s) and Reports epistaxis Cardiovascular: Cardiovascular: Reports chest pain and Denies dyspnea Respiratory: Respiratory: Denies cough and Denies dyspnea Gastrointestinal: Gastrointestinal: Denies abdominal pain, Denies nausea and Denies vomiting Genitourinary: Genitourinary: Denies difficulty voiding Musculoskeletal: Musculoskeletal: Denies back pain Neurologic: Reports headache(s) [facility] Past Medical History Medical History Asthma Diabetes Obstructive sleep apnea Paroxysmal atrial fibrillation SVT (supraventricular tachycardia) Surgical History Hx of lumbosacral spine surgery Family History Family History Father Diabetes Mother Diabetes CVD (cardiovascular disease) CHF (congestive heart failure) HTN (hypertension) Social History Social History Alcohol intake: current Alcohol intake frequency: holidays/special occasions only Patient Tobacco Use Status: Never used Tobacco Physical Exam ED Vital Signs: Vital Signs - 24 hr 09/27/22 14:38 Temperature 98.3 F Pulse Rate 90 Respiratory Rate 18 Blood Pressure 124/82 Pulse Oximetry 99 Oxygen Delivery Method Room Air BMI result Body Mass Index 32.8 Const General: healthy appearing, comfortable, no acute distress, alert and awake Nutritional Appearance: well nourished Orientation/consciousness: patient oriented x3 HENMT Head: Yes normocephalic and Yes atraumatic General nose exam: nasal polyps, Normal septum present, no nasal discharge noted, no epistaxis, no foreign body in nares and Nasal polyp present on the right Eyes Eyelids: Yes eyelids normal Conjunctivae: conjunctivae normal Sclerae: sclerae normal Corneas: corneas normal Pupils: Equal, round and reactive pupils present EOM: EOMs intact bilaterally Neck Neck: Yes full ROM Resp Effort & Inspection: normal respiratory effort, able to speak in complete sentences and not labored Cardio Rate: regular rate Rhythm: regular rhythm GI Inspection: No distended Palpation (GI): Soft to palpation, not firm, nontender, no guarding and not rigid Skin General skin exam: no rashes or lesions noted and elasticity normal Neuro General: patient oriented x3 Cranial nerves: Yes CN's II-XII intact bilaterally, Yes Equal, round and reactive pupils present and Yes Bilaterally intact EOM present Cognition (Neuro): normal cognition Extrem Other: Moving all extremities well without any obvious deformities Course Course Course Narrative: RME: 57-year-old female with a past medical history of HAMLET, AFib on Xarelto, diabetes, SVT, complaining of 3 episodes of epistaxis over the past 6 days, most recently Tuesday night, CHRISTIE and CP since Tuesday worsening today. Also reports exertional dyspnea. Denies fever, cough EKG, Labs, CXR ordered Full HPI, ROS and PE to be performed by primary ED provider. Medical Decision Making Lab Data 09/27/22 15:02 09/27/22 15:02 Labs: Lab Results 09/27/22 09/27/22 09/27/22 Range/Units 15:02 15:02 15:02 WBC 6.8 (4.8-10.8) X10*3/uL RBC 4.44 (4.20-5.50) X10*6/uL Hgb 13.4 (12.0-16.0) g/dl Hct 39.0 (37.0-47.0) % MCV 87.8 (80.0-98.0) fL MCH 30.2 (27.0-33.0) pg MCHC 34.4 (31.0-35.0) g/dl RDW 12.4 (11.0-16.0) % Plt Count 307 (160-400) X10*3/uL MPV 10.0 (9.4-12.3) fL Immature Gran % (Auto) 0.3 (0.0-0.4) % Neut % (Auto) 60.2 (45-73) % Lymph % (Auto) 29.6 (20-40) % [place] % (Auto) 6.5 (2-11) % Eos % (Auto) 2.7 (0-4) % Baso % (Auto) 0.7 (0-2) % Lymph # (Auto) 2.0 (1.2-4.9) X10*3/uL [place] # (Auto) 0.4 (0.1-1.2) X10*3/uL Eos # (Auto) 0.2 (0.0-0.4) X10*3/uL Baso # (Auto) 0.1 (0.0-0.2) X10*3/uL Abs Immat Gran (auto) 0.02 (0.00-0.03) X10*3/uL Absolute Neuts (auto) 4.1 (2.0-8.3) x10*3/uL Absolute Nucleated RBC 0.000 (0.0-0.012) X10*3/uL Nucleated RBC % (auto) 0.0 (0.0-0.2) /100WBC PT 14.9 H (11.1-13.3) SEC INR 1.2 H (0.9-1.1) Sodium 137 (135-145) mmol/L Potassium 3.5 (3.3-5.1) mmol/L Chloride 104 (96-108) mmol/L Carbon Dioxide 23 (22-29) mmol/L Anion Gap 14 (12-20) BUN 17 H (9-16) mg/dL Creatinine 0.86 (0.5-1.4) mg/dL Estim Creat Clear Calc 79.6 Estimated GFR > 60 Random Glucose 130 H (60-115) mg/dL Calcium 9.1 (8.4-10.2) mg/dL Magnesium 2.0 (1.6-2.6) mg/dL Total Bilirubin 0.3 (0.0-1.0) mg/dL Direct Bilirubin 0.1 (0.0-0.5) mg/dL AST 19 (5-31) U/L ALT 15 (0-31) U/L Alkaline Phosphatase 114 (39-117) U/L Troponin I High Sens (<3.5-17.0) ng/L B-Natriuretic Peptide (<100) pg/mL Total Protein 7.6 (6.5-8.0) g/dL Albumin 4.0 (3.5-5.0) g/dL 09/27/22 09/27/22 Range/Units 15:02 15:02 WBC (4.8-10.8) X10*3/uL RBC (4.20-5.50) X10*6/uL Hgb (12.0-16.0) g/dl Hct (37.0-47.0) % MCV (80.0-98.0) fL MCH (27.0-33.0) pg MCHC (31.0-35.0) g/dl RDW (11.0-16.0) % Plt Count (160-400) X10*3/uL MPV (9.4-12.3) fL Immature Gran % (Auto) (0.0-0.4) % Neut % (Auto) (45-73) % Lymph % (Auto) (20-40) % [place] % (Auto) (2-11) % Eos % (Auto) (0-4) % Baso % (Auto) (0-2) % Lymph # (Auto) (1.2-4.9) X10*3/uL [place] # (Auto) (0.1-1.2) X10*3/uL Eos # (Auto) (0.0-0.4) X10*3/uL Baso # (Auto) (0.0-0.2) X10*3/uL Abs Immat Gran (auto) (0.00-0.03) X10*3/uL Absolute Neuts (auto) (2.0-8.3) x10*3/uL Absolute Nucleated RBC (0.0-0.012) X10*3/uL Nucleated RBC % (auto) (0.0-0.2) /100WBC PT (11.1-13.3) SEC INR (0.9-1.1) Sodium (135-145) mmol/L Potassium (3.3-5.1) mmol/L Chloride (96-108) mmol/L Carbon Dioxide (22-29) mmol/L Anion Gap (12-20) BUN (9-16) mg/dL Creatinine (0.5-1.4) mg/dL Estim Creat Clear Calc Estimated GFR Random Glucose (60-115) mg/dL Calcium (8.4-10.2) mg/dL Magnesium (1.6-2.6) mg/dL Total Bilirubin (0.0-1.0) mg/dL Direct Bilirubin (0.0-0.5) mg/dL AST (5-31) U/L ALT (0-31) U/L Alkaline Phosphatase (39-117) U/L Troponin I High Sens < 2.7 (<3.5-17.0) ng/L B-Natriuretic Peptide < 10 (<100) pg/mL Total Protein (6.5-8.0) g/dL Albumin (3.5-5.0) g/dL Discharge Plan Discharge Clinical Impression: Chest pain Patient Disposition: Home, Self-Care Instructions: Chest Pain (ED) Additional Instructions: Your workup in the emergency department today was reassuring. This includes your EKG, blood work, and chest x-ray. For your nose bleed, you may want to use a saline nasal spray to lubricate the mucosa prior to and after using your CPAP machine Follow-up with your primary doctor Prescriptions: No Action Xarelto 20 mg tablet 20 mg PO QPM 90 Days Qty: 90 3RF diltiazem HCl 180 mg capsule,extended release 24hr 180 mg PO DAILY 90 Days Qty: 90 3RF triamcinolone acetonide 0.1 % cream See Rx Instructions .ROUTE .COMPLEX Rx Instructions: apply bid to affected areas lorazepam 0.5 mg tablet 1 tab PO BID PRN (Reason: anxiety) duloxetine 60 mg capsule,delayed release(DR/EC) 60 mg PO DAILY montelukast 10 mg tablet 10 mg PO DAILY Zyrtec 10 mg capsule 10 mg PO DAILY PRN albuterol sulfate 90 mcg/actuation HFA aerosol inhaler 0 mcg inhalation
[2022-09-27 15:09] LABS: MANUAL DIFF FLAG NO
[2022-09-27 15:12] LABS: Basophils Absolute Auto 0.1 X10*3/uL (0.0-0.2); Basophils Percent Auto 0.7 % (0-2); Eosinophils Absolute Auto 0.2 X10*3/uL (0.0-0.4); Eosinophils Percent Auto 2.7 % (0-4); Hemoglobin 13.4 g/dl (12.0-16.0); Imm Gran Abs Auto 0.02 X10*3/uL (0.00-0.03); Imm Gran Pct Auto 0.3 % (0.0-0.4); Lymphocytes Percent Auto 29.6 % (20-40); Mean Corpuscular HGB Conc 34.4 g/dl (31.0-35.0); Mean Corpuscular Hemoglobin 30.2 pg (27.0-33.0); Mean Corpuscular Volume 87.8 fL (80.0-98.0); Monocytes Absolute Auto 0.4 X10*3/uL (0.1-1.2); Monocytes Percent Auto 6.5 % (2-11); Neutrophils Absolute Auto 4.1 x10*3/uL (2.0-8.3); Neutrophils Percent Auto 60.2 % (45-73); Platelet Count 307 X10*3/uL (160-400); Red Blood Count 4.44 X10*6/uL (4.20-5.50); Red Cell Distribution Width 12.4 % (11.0-16.0); White Blood Count 6.8 X10*3/uL (4.8-10.8)
[2022-09-27 15:17] LABS: INTERNATIONAL NORM RATIO 1.2 (0.9-1.1); Prothrombin Time 14.9 SEC (11.1-13.3)
[2022-09-27 16:49] LABS: B Type Natriuretic Peptide < 10 pg/mL (<100)
[2022-09-27 16:52] LABS: Alanine Aminotransferase 15 U/L (0-31); Alkaline Phosphatase 114 U/L (39-117); Anion Gap 14 (12-20); Aspartate Amino Transferase 19 U/L (5-31); Bilirubin Direct 0.1 mg/dL (0.0-0.5); Bilirubin Total 0.3 mg/dL (0.0-1.0); Blood Urea Nitrogen 17 mg/dL (9-16); Calcium 9.1 mg/dL (8.4-10.2); Carbon Dioxide 23 mmol/L (22-29); Chloride 104 mmol/L (96-108); Creatinine Clr Calc Pharmacy 79.6; Estimated Glomerular Filt Rate > 60; Glucose Random 130 mg/dL (60-115); Potassium 3.5 mmol/L (3.3-5.1); Sodium 137 mmol/L (135-145); Total Protein 7.6 g/dL (6.5-8.0)
[2022-09-27 17:37] LABS: Troponin-I High Sensitivity < 2.7 ng/L (<3.5-17.0)
--- OUTSIDE RECORDS SUMMARY | 2022-09-27 19:35 | XMS_ITS | Continuity of Care Document ---
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 Role Phone Sharon GEIGER, [place] Primary Care Physician [place] [facility] [place] [facility] [place] Date(s): 02/05/19 - 02/05/[address] [id number]- [facility] Attending Physician: Savita Vera NP Allergies, Adverse Reactions, Alerts Substance Reaction Severity Status codeine Active naproxen Active sulfa drugs Active Medications Cymbalta Capsule By Mouth, 0 Refills, Maintenance Start Date: 12/04/12 Status: Ordered Fish Oil = 1,000 mg, By Mouth, 0 Refills, Maintenance Start Date: 08/21/12 Status: Ordered gabapentin 300 mg oral capsule 300 mg, 1, capsule, By Mouth, Daily at bedtime, Refills 0, Maintenance, 02/01/18 14:07:09 EST Start Date: 02/01/18 Status: Ordered Lorazepam 0 Refills, Maintenance Start Date: 08/21/12 Status: Ordered Multivitamin By Mouth, Daily, 0 Refills, Maintenance Start Date: 08/21/12 Status: Ordered norethindrone 0.35 mg oral tablet 1 tablet = 0.35 mg, By Mouth, Daily, 0 Refills, Maintenance, 02/01/18 16:39:51 EST Start Date: 02/01/18 Status: Ordered Singulair By Mouth, Daily, 0 Refills, Maintenance, 02/01/18 14:07:41 EST Start Date: 02/01/18 Status: Ordered Problem List Condition Effective Dates Status Health Status Inform ant Breast pain(Confirmed) 08/21/12 Active Social History Social History Type Response Smoking Status Never (less than 100 in lifetime) entered on: 02/01/18 Sex
--- OUTSIDE RECORDS SUMMARY | 2022-09-27 19:35 | XMS_ITS | Continuity of Care Document ---
Author Name Unknown Organization [facility] ter Address [address] [place] [id number]- Care Team Providers Care On Site Nurse Name Role Phone Sharon GEIGER, [place] Primary Care Physician Encounter [facility] [place] Date(s): 03/01/19 - 03/08/[address] [address]- [facility] Attending Physician: Savita Vera NP Allergies, Adverse [...] Status Inform ant Breast pain(Confirmed) 08/21/12 Active Results Microbiology Reports TEST:Urine Culture STATUS:Auth (Verified) BODY SITE: SOURCE:CLEAN COLLECTED DATE/TIME:03/01/19 3:00 PM Urine Culture SPECIMEN DESCRIPTION : CLEAN CATCH (URINE) SPECIAL REQUESTS : NONE CULTURE : NO GROWTH REPORT STATUS : FINAL 03/03/2019 Social History Social History Type Response Smoking Status Never (less than 100 in lifetime) entered on: 02/01/18 Sex
== END 2022-09-27 20:07 | disposition home or self-care (01) ==
PROVIDERS: Physician Assistant; Emergency Provider Emergency Medicine; PCP Nurse Practitioner Family
DX: R07.9 Chest pain, unspecified (principal); R06.09 Other forms of dyspnea; E11.9 Type 2 diabetes mellitus without complications; I48.0 Paroxysmal atrial fibrillation; Z79.01 Long term (current) use of anticoagulants; Z79.899 Other long term (current) drug therapy
CPT/HCPCS: 36415; 71045; 80048; 80076; 83735; 83880; 84484; 85025; 85610; 93005; 99283

== ENCOUNTER 2022-10-07 08:58 | Emergency (ER) | payer BC, SELFPAY ==
--- NOTE | ~2022-10-07 | CT_ITS ---
EXAMINATION: CT HEAD WITHOUT CONTRAST CLINICAL INFORMATION: Headache COMPARISON: CT brain 03/18/2022 TECHNIQUE: Contiguous axial imaging was performed from the skull base to vertex without intravenous administration of contrast. This CT examination was performed using dose optimization techniques as appropriate, variously including the following: *Automated exposure control *Adjustment of mA and/or kV according to patient size (this includes techniques or standardized protocols for targeted exams where dose is matched to indication/reason for exam; i.e. extremities or head) *Use of iterative reconstruction technique DLP: 620 mGy-cm FINDINGS: There is no acute intra-axial, extra-axial bleed, masses or midline shift. There is no acute infarction in evolution. There is no edema. Bland to white matter differentiation is maintained. There is mild asymmetry of the lateral ventricles but no enlargement seen. Bone windows reveal mild mucoperiosteal thickening right middle sphenoid sinus. There is no scalp soft tissue abnormality. Rest the paranasal sinuses and mastoid air cells are well-aerated. CT/CT head/brain wo IV con IMPRESSION: No acute intracranial process seen. Mild chronic right sphenoid sinus inflammatory changes.
[2022-10-07 09:26] VITALS: BP 141/85; PULSE 93; RESP 12; TEMP 37.3; O2SAT 97; BMI 32.8
[2022-10-07 11:59] VITALS: BP 130/77; PULSE 74; RESP 18; O2SAT 94
--- NOTE | 2022-10-07 12:21 | PC.NURSE ---
pt reports having nose bleeds the last couple of weeks, and headaches pt is on xeralto, no bleeding at this time, does report headache on the left side feels like pressure around the eye 6/10
[2022-10-07] MEDS: Acetaminophen 325 MG TABLET 975 MG PO (12:58)
[2022-10-07 13:20] LABS: MANUAL DIFF FLAG NO
[2022-10-07 13:30] LABS: Basophils Percent Auto 0.7 % (0-2); Eosinophils Absolute Auto 0.1 X10*3/uL (0.0-0.4); Hematocrit 37.8 % (37.0-47.0); Hemoglobin 13.2 g/dl (12.0-16.0); Imm Gran Abs Auto 0.02 X10*3/uL (0.00-0.03); Imm Gran Pct Auto 0.3 % (0.0-0.4); Lymphocytes Absolute Auto 1.8 X10*3/uL (1.2-4.9); Lymphocytes Percent Auto 30.5 % (20-40); Mean Corpuscular HGB Conc 34.9 g/dl (31.0-35.0); Mean Corpuscular Hemoglobin 30.6 pg (27.0-33.0); Mean Corpuscular Volume 87.5 fL (80.0-98.0); Mean Platelet Volume 10.3 fL (9.4-12.3); Monocytes Absolute Auto 0.4 X10*3/uL (0.1-1.2); Monocytes Percent Auto 6.4 % (2-11); Neutrophils Absolute Auto 3.6 x10*3/uL (2.0-8.3); Neutrophils Percent Auto 60.1 % (45-73); Platelet Count 283 X10*3/uL (160-400); Red Blood Count 4.32 X10*6/uL (4.20-5.50); Red Cell Distribution Width 12.5 % (11.0-16.0); White Blood Count 5.9 X10*3/uL (4.8-10.8)
[2022-10-07 13:33] LABS: INTERNATIONAL NORM RATIO 1.3 (0.9-1.1); Prothrombin Time 15.6 SEC (11.1-13.3)
[2022-10-07 13:36] LABS: Partial Thromboplastin Time 34.4 SEC (26.0-36.4)
[2022-10-07 13:45] LABS: Alanine Aminotransferase 15 U/L (0-31); Albumin Level 3.9 g/dL (3.5-5.0); Alkaline Phosphatase 103 U/L (39-117); Anion Gap 10 (12-20); Aspartate Amino Transferase 21 U/L (5-31); Bilirubin Direct 0.2 mg/dL (0.0-0.5); Bilirubin Total 0.8 mg/dL (0.0-1.0); Blood Urea Nitrogen 17 mg/dL (9-16); Calcium 9.4 mg/dL (8.4-10.2); Carbon Dioxide 25 mmol/L (22-29); Chloride 107 mmol/L (96-108); Creatinine Clr Calc Pharmacy 74.5; Estimated Glomerular Filt Rate > 60; Glucose Random 155 mg/dL (60-115); Potassium 3.5 mmol/L (3.3-5.1); Sodium 138 mmol/L (135-145); Total Protein 7.2 g/dL (6.5-8.0)
--- NOTE | 2022-10-07 14:49 | ED.GENADULT ---
HPI - General Adult General Chief complaint: General Medical Stated complaint: nose bleed Time Seen by Provider: 10/07/22 11:25 Source: patient and RN notes reviewed Mode of arrival: ambulatory Limitations: no limitations History of Present Illness HPI narrative: This is a 57-year-old female, with a history of atrial fibrillation on Xarelto, presenting to the emergency department for evaluation of epistaxis and headache. Patient denies any recent trauma or injury to her head. She was seen 2 weeks ago for a nose bleed. She states that this morning she was picking her nose when suddenly she developed a nose bleed, and bleeding for approximately 3 hours. She also reports that she has had a headache for the last 2 weeks. Reports nasal congestion as well. Denies any fevers, chills, visual changes, sore throat, runny nose, chest pain, shortness of breath, abdominal pain nausea vomiting or diarrhea. No urinary symptoms. No other complaints or concerns at this time. MD complaint: Nose bleed, headache Severity: moderate Quality: aching Pain Consistency: constant Relieving factors: none Exacerbating factors: none Associated symptoms: denies other symptoms Treatments prior to arrival: none Related Data Home Medications Medication Instructions Recorded Confirmed lorazepam 0.5 mg tablet 1 tab PO BID PRN anxiety 12/06/19 08/20/22 triamcinolone acetonide 0.1 % See Rx Instructions .Route .COMPLEX 12/06/19 08/20/22 topical cream duloxetine 60 mg capsule,delayed 60 mg PO DAILY 05/15/20 08/20/22 release montelukast 10 mg tablet 10 mg PO DAILY 05/15/20 08/20/22 cetirizine 10 mg capsule (Zyrtec) 10 mg PO DAILY PRN 03/31/21 08/20/22 albuterol sulfate 90 mcg/actuation 0 mcg inhalation 08/20/22 08/20/22 aerosol inhaler Previous Rx's Medication Instructions Recorded rivaroxaban 20 mg tablet (Xarelto) 20 mg PO QPM 90 days #90 tabs 03/26/22 diltiazem HCl 180 mg 180 mg PO DAILY 90 days #90 caps 04/14/22 capsule,extended release 24 hr doxycycline hyclate 100 mg capsule 100 mg PO BID 7 days #14 caps 10/07/22 Allergies Allergy/AdvReac Type Severity Reaction Status Date / Time Sulfa (Sulfonamide Allergy Intermediate rash Verified 08/20/22 14:44 Antibiotics) [SULFA (SULFONAMIDE ANTIBIOTICS)] amitriptyline Allergy Unknown lethargy Verified 08/20/22 14:44 codeine [CODEINE] Allergy Unknown RASH Verified 08/20/22 14:44 naproxen [From NAPROSYN] Allergy Unknown RASH Verified 08/20/22 14:44 Review of Systems Review of Systems: Yes all other systems are reviewed and are negative Constitutional: Constitutional: Reports as per [facility] Past Medical History Medical History Asthma Diabetes Obstructive sleep apnea Paroxysmal atrial fibrillation SVT (supraventricular tachycardia) Surgical History Hx of lumbosacral spine surgery Family History Family History Father Diabetes Mother Diabetes CVD (cardiovascular disease) CHF (congestive heart failure) HTN (hypertension) Social History Social History Alcohol intake: current Alcohol intake frequency: does not drink Patient Tobacco Use Status: Never used Tobacco Smoked in Last 30 Days: No Use of substances other than those prescribed or required for medical reasons: No Advance Directives: No Advance Directives Information Provided: Yes Physical Exam ED Vital Signs: Vital Signs - 24 hr 10/07/22 09:26 10/07/22 11:59 Temperature 99.1 F Pulse Rate 93 74 Respiratory Rate 12 18 Blood Pressure 141/85 H 130/77 Pulse Oximetry 97 94 Oxygen Delivery Method Room Air Room Air BMI result Body Mass Index 32.8 Const General: cooperative, comfortable and no acute distress Orientation/consciousness: patient oriented x3 Limitations: no limitations HENMT Other: Frontal, maxillary and ethmoid sinus tenderness to palpation. Head: Yes normal to inspection, Yes normocephalic and Yes atraumatic Ears: hearing grossly normal bilaterally and TM's normal bilaterally (No hemotympanum ) General nose exam: Normal external nose present Face and sinus: Yes normal facial exam Mouth: Normal oral and palatal mucosa present, oropharynx normal and moist mucous membranes Throat: Yes posterior oropharynx normal Eyes General: appearance normal, both eyes and all related structures Eyelids: Yes eyelids normal Conjunctivae: conjunctivae normal Sclerae: sclerae normal Pupils: Equal, round and reactive pupils present EOM: EOMs intact bilaterally Neck Neck: Yes normal visual inspection, Yes full ROM and Yes no lymphadenopathy Lymphatic: no lymphadenopathy noted Chest Chest palpation & inspection: normal inspection of the chest Resp Effort & Inspection: normal respiratory effort and able to speak in complete sentences Auscultation: clear to auscultation bilaterally, no crackles, no rales, no rhonchi and no wheezes Cardio Rate: regular rate Rhythm: regular rhythm Heart sounds: S1 normal heart sound present and S2 normal heart sound present GI Inspection: Yes normal to inspection Skin General skin exam: no rashes or lesions noted Trauma: no lacerations or abrasions Wounds: no wounds Neuro General: patient oriented x3 and moves all extremities Cranial nerves: Yes CN's II-XII intact bilaterally and Yes Equal, round and reactive pupils present Cognition (Neuro): normal cognition Gait exam (Neuro): Normal gait present Extrem General: Yes normal to inspection Right upper extremity: normal to inspection Left upper extremity: normal to inspection Right lower extremity: normal to inspection Left lower extremity: normal to inspection Course Reevaluation(s) Reevaluation #1: CT head without any acute intracranial findings. Does have evidence of some inflammatory changes consistent with sinusitis. Given patient has clinical signs of sinusitis, will treat with antibiotics. Patient states that she has a history of allergy to penicillins as well as sulfa medications. Will treat with course of doxycycline. Patient advised to follow-up with her primary care physician regarding this visit. Encouraged to avoid blowing nose, swimming, and picking her nose. Patient understands and agrees with plan. Patient stable for discharge. Time: 15:00 Medications Administered Discontinued Medications Generic Name Dose Route Start Last Admin Trade Name Freq PRN Reason Stop Dose Admin Acetaminophen 975 mg 10/07/22 12:47 10/07/22 12:58 Acetaminophen 325 Mg Tablet PO 10/07/22 12:48 975 mg ONCE ONE Administration Medical Decision Making Medical Decision Making [facility] Narrative: 57-year-old female presenting to the emergency department for evaluation of epistaxis episode that lasted approximately 3 hours this morning as well as headache x2 weeks. Patient admits that she did pick her nose this morning and had noticed blood coming from her nose. She applied pressure however blood continued to drip from her nose. Patient also endorses having a headache over the last 2 weeks, no head trauma or injury. Given patient is on Eliquis, will obtain head CT to ensure no evidence of ICH. On examination, patient is tenderness to palpation along the frontal, ethmoid, and maxillary sinuses. Symptoms consistent with sinus infection however given anticoagulated will obtain further workup. Patient is fully neurologically intact. Plan: Labs, head CT Differential Diagnosis Differential Diagnoses: The differential diagnosis associated with the presentation includes See above Admission/Observation Consideration of admission/observation: Escalation of care including admission/observation considered Patient would have been admitted to the hospital had her work up had any findings where hospital admission was appropriate and her clinical presentation warranted hospital admission. Lab Data MDM Lab Attestation statement: I reviewed the patient's lab results. H&H stable, no leukocytosis, INR within normal range. 10/07/22 13:12 10/07/22 13:12 Labs: Lab Results 10/07/22 10/07/22 10/07/22 Range/Units 13:12 13:12 13:12 WBC 5.9 (4.8-10.8) X10*3/uL RBC 4.32 (4.20-5.50) X10*6/uL Hgb 13.2 (12.0-16.0) g/dl Hct 37.8 (37.0-47.0) % MCV 87.5 (80.0-98.0) fL MCH 30.6 (27.0-33.0) pg MCHC 34.9 (31.0-35.0) g/dl RDW 12.5 (11.0-16.0) % Plt Count 283 (160-400) X10*3/uL MPV 10.3 (9.4-12.3) fL Immature Gran % (Auto) 0.3 (0.0-0.4) % Neut % (Auto) 60.1 (45-73) % Lymph % (Auto) 30.5 (20-40) % Hemphill % (Auto) 6.4 (2-11) % Eos % (Auto) 2.0 (0-4) % Baso % (Auto) 0.7 (0-2) % Lymph # (Auto) 1.8 (1.2-4.9) X10*3/uL Hemphill # (Auto) 0.4 (0.1-1.2) X10*3/uL Eos # (Auto) 0.1 (0.0-0.4) X10*3/uL Baso # (Auto) 0.0 (0.0-0.2) X10*3/uL Abs Immat Gran (auto) 0.02 (0.00-0.03) X10*3/uL Absolute Neuts (auto) 3.6 (2.0-8.3) x10*3/uL Absolute Nucleated RBC 0.000 (0.0-0.012) X10*3/uL Nucleated RBC % (auto) 0.0 (0.0-0.2) /100WBC PT 15.6 H (11.1-13.3) SEC INR 1.3 H (0.9-1.1) APTT 34.4 (26.0-36.4) SEC Sodium 138 (135-145) mmol/L Potassium 3.5 (3.3-5.1) mmol/L Chloride 107 (96-108) mmol/L Carbon Dioxide 25 (22-29) mmol/L Anion Gap 10 L (12-20) BUN 17 H (9-16) mg/dL Creatinine 0.92 (0.5-1.4) mg/dL Estim Creat Clear Calc 74.5 Estimated GFR > 60 Random Glucose 155 H (60-115) mg/dL Calcium 9.4 (8.4-10.2) mg/dL Total Bilirubin 0.8 (0.0-1.0) mg/dL Direct Bilirubin 0.2 (0.0-0.5) mg/dL AST 21 (5-31) U/L ALT 15 (0-31) U/L Alkaline Phosphatase 103 (39-117) U/L Total Protein 7.2 (6.5-8.0) g/dL Albumin 3.9 (3.5-5.0) g/dL Radiology Impression Discussion of test interpretation with radiology: I have reviewed the radiologist's reading. Radiologist Impression: EXAMINATION: CT HEAD WITHOUT CONTRAST CLINICAL INFORMATION: Headache? COMPARISON: CT brain 03/18/2022 TECHNIQUE: Contiguous axial imaging was performed from the skull base to vertex without intravenous administration of contrast. This CT examination was performed using dose optimization techniques as appropriate, variously including the following: *Automated exposure control *Adjustment of mA and/or kV according to patient size (this includes techniques or standardized protocols for targeted exams where dose is matched to indication/reason for exam; i.e. extremities or head) *Use of iterative reconstruction technique DLP: 620 mGy-cm FINDINGS: There is no acute intra-axial, extra-axial bleed, masses or midline shift. There is no acute infarction in evolution. There is no edema. Bland to white matter differentiation is maintained. There is mild asymmetry of the lateral ventricles but no enlargement seen. Bone windows reveal mild mucoperiosteal thickening right middle sphenoid sinus. There is no scalp soft tissue abnormality. Rest the paranasal sinuses and mastoid air cells are well-aerated. ? CT/CT head/brain wo IV con IMPRESSION: No acute intracranial process seen. ? Mild chronic right sphenoid sinus inflammatory changes. Dictated By: Cyril Olguin MD Chronic Conditions Patient?s care impacted by: Other (Atrial fibrillation on anticoagulation.) Discharge Plan Discharge Clinical Impression: Sinusitis, Epistaxis Patient Disposition: Home, Self-Care Instructions: Sinusitis (ED), Nosebleed (ED) Additional Instructions: Your lab work today was reassuring. Your head CT revealed evidence of a sinus infection. Please complete full course of antibiotic even if your feeling better. Take Tylenol as needed for pain. Drink plenty of fluids get plenty of rest. If any new or worsening symptoms occur including but not limited to worsening headaches, continued nose bleed, please return for re-evaluation. Please follow-up with your primary care physician regarding this visit. Prescriptions: New doxycycline hyclate 100 mg capsule 100 mg PO BID 7 Days Qty: 14 0RF No Action Xarelto 20 mg tablet 20 mg PO QPM 90 Days Qty: 90 3RF diltiazem HCl 180 mg capsule,extended release 24hr 180 mg PO DAILY 90 Days Qty: 90 3RF triamcinolone acetonide 0.1 % cream See Rx Instructions .ROUTE .COMPLEX Rx Instructions: apply bid to affected areas lorazepam 0.5 mg tablet 1 tab PO BID PRN (Reason: anxiety) duloxetine 60 mg capsule,delayed release(DR/EC) 60 mg PO DAILY montelukast 10 mg tablet 10 mg PO DAILY Zyrtec 10 mg capsule 10 mg PO DAILY PRN albuterol sulfate 90 mcg/actuation HFA aerosol inhaler 0 mcg inhalation Discharge Date/Time: 10/07/22 15:00
== END 2022-10-07 15:00 | disposition home or self-care (01) ==
PROVIDERS: Physician Assistant Medical; Emergency Provider Emergency Medicine; PCP Nurse Practitioner Family
DX: J32.8 Other chronic sinusitis (principal); R04.0 Epistaxis; R51.9 Headache, unspecified; E11.9 Type 2 diabetes mellitus without complications; I48.0 Paroxysmal atrial fibrillation; Z79.01 Long term (current) use of anticoagulants; Z79.899 Other long term (current) drug therapy
CPT/HCPCS: 36415; 70450; 80048; 80076; 85025; 85610; 85730; 99284

== ENCOUNTER 2023-02-24 14:53 | Outpatient (AMB) | payer BC, SELFPAY ==
--- NOTE | 2023-02-24 14:57 | A.OFFVIS_ITS ---
Intake Vital Signs 02/24/23 14:58 Height 5 ft 5 in Weight 191 lb 12.835 oz BMI 31.9 BP 132/82 Blood Pressure Location Lt brachial Position Sitting Pulse 96 Intake Visit Reasons: 6 month follow-up Allergies Sulfa (Sulfonamide Antibiotics) [SULFA (SULFONAMIDE ANTIBIOTICS)] Allergy (Intermediate, Verified 08/20/22 14:44) rash amitriptyline Allergy (Unknown, Verified 08/20/22 14:44) lethargy codeine [CODEINE] Allergy (Unknown, Verified 08/20/22 14:44) RASH naproxen [From NAPROSYN] Allergy (Unknown, Verified 08/20/22 14:44) RASH Medication List - Last Reconciled 02/24/23 by Robert Viera MD albuterol sulfate 90 mcg/actuation 0 mcg inhalation cetirizine (Zyrtec) 10 mg PO DAILY PRN diltiazem HCl 180 mg PO DAILY 90 days doxycycline hyclate 100 mg PO BID 7 days duloxetine 60 mg PO DAILY lorazepam 1 tab PO BID PRN montelukast 10 mg PO DAILY rivaroxaban (Xarelto) 20 mg PO QPM 90 days triamcinolone acetonide 0.1% apply bid to affected areas HPI HPI Comments History of Present Illness Details Keyla comes for follow-up. She has been doing very well from cardiac perspective. She says a blood pressures been well controlled. She would 1 episode of epistaxis in September without any obvious source. No recurrent episodes since then. She has been taking all her medications. Denies any prolonged palpitation irregular heartbeat but gets intermittent episodes of skipped heartbeats. EKG during that time on a device shows isolated PVCs. She denies any exertional chest pain or shortness of breath. No heart failure symptoms. No further significant bleeding issues or neurologic events [facility] Medical History Obstructive sleep apnea Paroxysmal atrial fibrillation Diabetes Asthma SVT (supraventricular tachycardia) Surgical History Hx of lumbosacral spine surgery Family History Father Diabetes Mother Diabetes CVD (cardiovascular disease) CHF (congestive heart failure) HTN (hypertension) Social History Alcohol intake: current Alcohol intake frequency: does not drink Patient Tobacco Use Status: Never used Tobacco Review of Systems Const Denies chills, Denies fatigue, Denies fever(s), Denies frequent falls, Denies weakness, Denies weight gain and Denies weight loss ENT Denies dizziness Card Denies chest pain, Denies leg edema, Denies lightheadedness, Denies palpitations, Denies dyspnea, Denies dyspnea on exertion, Denies orthopnea and Denies other (loss of consciousness) Resp Denies cough, Denies dyspnea and Denies dyspnea on exertion GI Denies hematochezia and Denies change in stool character Musc Denies abnormal gait, Denies muscle weakness, Denies numbness, Denies radiating pain into limb and Denies tingling Neuro Denies abnormal gait, Denies dizziness, Denies frequent falls, Denies numbness, Denies tingling and Denies weakness Endo Denies fatigue and Denies palpitations Physical Exam Vital Signs: Last Vital Signs Pulse 96 02/24/23 14:58 BP 132/82 02/24/23 14:58 BMI result Body Mass Index 31.9 Const General: cooperative, healthy appearing, comfortable and no acute distress Orientation/consciousness: patient oriented x3 Neck Neck: Yes normal visual inspection Resp Effort & Inspection: normal respiratory effort Auscultation: clear to auscultation bilaterally, no crackles, no rales, no rhonchi and no wheezes Cardio Jugular venous distension: no JVD Rate: regular rate Rhythm: regular rhythm Heart sounds: S1 normal heart sound present, S2 normal heart sound present, no gallops, no murmurs and no rubs Neuro General: patient oriented x3 Extrem General: Yes normal to inspection and No no pedal edema Psych Appearance: grossly normal Mental Status: mental status grossly normal Speech and movement: Normal speech and movement present Assessment & Plan Assessment & Plan (1) Paroxysmal atrial fibrillation: Code(s): I48.0 - Paroxysmal atrial fibrillation Plan: Highly symptomatic paroxysmal atrial fibrillation, currently suppressed on therapy with diltiazem. She is done well with the same. No indication for antiarrhythmic drug therapy at this point time. Advise to avoid stimulants. Continue aggressive blood pressure control which is currently well optimized. Advised to continue to pursue weight loss strategy. Continue full oral anticoagulation, currently on Xarelto 20 mg daily. Semi annual renal function test should be pursued. (2) SVT (supraventricular tachycardia): Code(s): I47.1 - Supraventricular tachycardia Plan: SVT again has remained suppressed on diltiazem therapy. Mechanism of SVT was discussed. Vagal maneuvers were discussed. Continue diltiazem therapy. Avoidance of stimulants was discussed. (3) Palpitations: Code(s): R00.2 - Palpitations Plan: Intermittent episodes of palpitation which are consistent with isolated PVCs. Currently no further treatment indicated. Avoidance of stimulants was discussed. Will follow up in the clinic in 6 months time, sooner p.r.n.. Thank you for allowing me to partake in her care Coding Level of Care Code Est Pt Level 4 (89358) Diagnoses Paroxysmal atrial fibrillation I48.0 SVT (supraventricular tachycardia) I47.1 Palpitations R00.2
[2023-02-24 14:58] VITALS: BP 132/82; PULSE 96; BMI 31.9
== END 2023-02-24 15:13 | disposition home or self-care (01) ==
PROVIDERS: PCP Nurse Practitioner Family; Visit Provider Internal Medicine Cardiovascular Disease
DX: I48.0 Paroxysmal atrial fibrillation (principal); I47.10 Supraventricular tachycardia, unspecified; R00.2 Palpitations
CPT/HCPCS: 99214

== ENCOUNTER 2023-02-24 14:53 | Outpatient (REF) | payer BC, SELFPAY | END 2023-02-24 14:54 | disposition home or self-care (01) | LOC: HO.LAB 14:53 | PROVIDERS: PCP Nurse Practitioner Family; Visit Provider Internal Medicine Cardiovascular Disease | DX: Z13.89 Encounter for screening for other disorder (principal) ==

== ENCOUNTER 2023-09-01 14:46 | Outpatient (AMB) | payer BC, SELFPAY ==
--- NOTE | 2023-09-01 14:51 | MHC.OFFVIS ---
Vital Signs 09/01/23 14:52 Height 5 ft 5 in Weight 202 lb 13.204 oz BMI 33.7 BP 122/76 Blood Pressure Location Lt brachial Position Sitting Pulse 84 Intake Visit Reasons: 6 months Intake Note: 6 month follow-up with ekg c/o some palpitations only twice in 6 month Hvac Service Technician Required: No Allergies Sulfa (Sulfonamide Antibiotics) [SULFA (SULFONAMIDE ANTIBIOTICS)] Allergy (Intermediate, Verified 08/20/22 14:44) rash amitriptyline Allergy (Unknown, Verified 08/20/22 14:44) lethargy codeine [CODEINE] Allergy (Unknown, Verified 08/20/22 14:44) RASH naproxen [From NAPROSYN] Allergy (Unknown, Verified 08/20/22 14:44) RASH Medication List - Last Reconciled 09/01/23 by Robert Viera MD albuterol sulfate 90 mcg/actuation 0 mcg inhalation cetirizine (Zyrtec) 10 mg PO DAILY PRN diltiazem HCl CD 180 mg PO DAILY duloxetine 60 mg PO DAILY lorazepam 1 tab PO BID PRN montelukast 10 mg PO DAILY rivaroxaban (Xarelto) 20 mg PO QPM semaglutide (Ozempic) mg subcut triamcinolone acetonide 0.1% apply bid to affected areas HPI Comments Details: Keyla comes for follow-up. She had 1 episode of rapid heart rate on August 17, EKG by [email or web address] showed possible atrial fibrillation. I reviewed EKG and this is suggestive atrial fibrillation however this was a very short lasting episode. She has not had any other prolonged bothersome episodes. These are not life-limiting episodes. However she for the last month or so she has developed retrosternal dull ache like symptoms. She says she has not had any increased stress at work. Symptoms mostly happens at rest and then last for about 10-15 minutes. Symptoms are not similar to her acid reflux disease. She denies any obvious exertional symptoms. No bleeding issues or neurologic events. Takes all her medications regularly. [facility] Medical History Obstructive sleep apnea Paroxysmal atrial fibrillation Diabetes Asthma SVT (supraventricular tachycardia) Surgical History Hx of lumbosacral spine surgery Family History Father Diabetes Mother Diabetes CVD (cardiovascular disease) CHF (congestive heart failure) HTN (hypertension) Social History Alcohol intake: current Alcohol intake frequency: does not drink Patient Tobacco Use Status: Never used Tobacco Review of Systems Const Denies chills, Denies fatigue, Denies fever(s), Denies frequent falls, Denies weakness, Denies weight gain and Denies weight loss ENT Denies dizziness Card Denies chest pain, Denies leg edema, Denies lightheadedness, Denies palpitations, Denies dyspnea, Denies dyspnea on exertion, Denies orthopnea and Denies other (loss of consciousness) Resp Denies cough, Denies dyspnea and Denies dyspnea on exertion GI Denies hematochezia and Denies change in stool character Musc Denies abnormal gait, Denies muscle weakness, Denies numbness, Denies radiating pain into limb and Denies tingling Neuro Denies abnormal gait, Denies dizziness, Denies frequent falls, Denies numbness, Denies tingling and Denies weakness Endo Denies fatigue and Denies palpitations Physical Exam Vital Signs: Last Vital Signs Pulse 84 09/01/23 14:52 BP 122/76 09/01/23 14:52 BMI result Body Mass Index 33.7 Const General: cooperative, healthy appearing, comfortable and no acute distress Orientation/consciousness: patient oriented x3 Neck Neck: Yes normal visual inspection Resp Effort & Inspection: normal respiratory effort Auscultation: clear to auscultation bilaterally, no crackles, no rales, no rhonchi and no wheezes Cardio Jugular venous distension: no JVD Rate: regular rate Rhythm: regular rhythm Heart sounds: S1 normal heart sound present, S2 normal heart sound present, no gallops, no murmurs and no rubs Neuro General: patient oriented x3 Extrem General: Yes normal to inspection and No no pedal edema Psych Appearance: grossly normal Mental Status: mental status grossly normal Speech and movement: Normal speech and movement present Office Procedures EKG Details: EKG shows normal sinus rhythm with normal EKG [id number], Complete Assessment & Plan Assessment & Plan (1) Paroxysmal atrial fibrillation: Code(s): I48.0 - Paroxysmal atrial fibrillation Category: Medical Plan: Paroxysmal atrial fibrillation which has overall remained suppressed with 1 brief episode without any clear triggers. No significant frequent episodes. Would not change her medical therapy at this point time. Continue Cardizem therapy. Advised to call me with worsening symptoms. Continue aggressive risk factor modification with continued participate in regular physical activity and weight loss program. Continue CPAP therapy. Continue full oral anticoagulation, currently on Xarelto 20 mg daily. Semi annual renal function test should be pursued. SVTs overall health remained suppressed. Follow-up echocardiogram 6 months time. (2) Atypical chest pain: Code(s): R07.89 - Other chest pain Plan: Patient with recent episode of chest discomfort which are mostly at rest. No clear exertional symptoms. She does have risk factors for obstructive CAD. Will suggest a regular treadmill stress test to evaluate for myocardial ischemia. Will follow up in the clinic in 6 months' time on her request. Thank you for allowing me to partake in her care Orders: Orders Basic Metabolic Panel Today I48.0 - Paroxysmal atrial fibrillation Complete Blood Count no Diff Today I48.0 - Paroxysmal atrial fibrillation CA stress test Today R07.89 - Other chest pain Coding Level of Care Code Est Pt Level 4 (42689) Diagnoses Paroxysmal atrial fibrillation I48.0 Atypical chest pain R07.89 CPT Codes EKG - CPT: 52269-[id number], Complete ([id number])
[2023-09-01 14:52] VITALS: BP 122/76; PULSE 84; BMI 33.7
== END 2023-09-01 15:16 | disposition home or self-care (01) ==
PROVIDERS: PCP Nurse Practitioner Family; Visit Provider Internal Medicine Cardiovascular Disease
DX: I48.0 Paroxysmal atrial fibrillation (principal); R07.89 Other chest pain
CPT/HCPCS: 93010; 99214

== ENCOUNTER → 2023-09-01 14:46 | Outpatient (BNVA) | payer BC, SELFPAY | PROVIDERS: PCP Nurse Practitioner Family; Visit Provider Internal Medicine Cardiovascular Disease | DX: I48.0 Paroxysmal atrial fibrillation (principal); R07.89 Other chest pain; Z79.01 Long term (current) use of anticoagulants; Z79.899 Other long term (current) drug therapy | CPT/HCPCS: 93005 ==

== ENCOUNTER 2023-09-05 08:23 | Outpatient (REF) | payer BC, SELFPAY ==
[2023-09-05 09:18] LABS: Hematocrit 39.9 % (37.0-47.0); Hemoglobin 13.5 g/dl (12.0-16.0); Mean Corpuscular HGB Conc 33.8 g/dl (31.0-35.0); Mean Corpuscular Hemoglobin 30.3 pg (27.0-33.0); Mean Corpuscular Volume 89.5 fL (80.0-98.0); Mean Platelet Volume 10.4 fL (9.4-12.3); Platelet Count 297 X10*3/uL (160-400); Red Blood Count 4.46 X10*6/uL (4.20-5.50); Red Cell Distribution Width 12.4 % (11.0-16.0); White Blood Count 5.8 X10*3/uL (4.8-10.8)
[2023-09-05 09:43] LABS: Anion Gap 13 (12-20); Blood Urea Nitrogen 15 mg/dL (9-16); Calcium 9.5 mg/dL (8.4-10.2); Carbon Dioxide 25 mmol/L (22-29); Chloride 105 mmol/L (96-108); Estimated Glomerular Filt Rate > 60; Glucose Random 135 mg/dL (60-115); Potassium 3.8 mmol/L (3.3-5.1); Sodium 139 mmol/L (135-145)
== END 2023-09-05 08:24 | disposition home or self-care (01) ==
LOC: HO.LAB 08:23
PROVIDERS: PCP Registered Nurse; Visit Provider Internal Medicine Cardiovascular Disease
DX: I48.0 Paroxysmal atrial fibrillation (principal)
CPT/HCPCS: 36415; 80048; 85027

== ENCOUNTER → 2023-09-09 07:56 | Outpatient (REF) | payer BC, SELFPAY ==
--- NOTE | 2023-09-09 07:59 | CA_ITS ---
Acquisition Time: 2023-09-09 08:13:38 Total Exercise Time: 00:06:52 Test Indications: ATYPICAL CHEST PAIN Medications: Protocol: HARRY Max HR: 139 BPM 85% of Pred: 162 BPM Max BP: 140/080 mmHG Max Work Load: 8.3 METS Exercise stress test exercise 6 min 52 sec of Harry protocol achieving 85% MPHR, with moderate SOB, 2-3/10 dull pain in chest, with isolated PVCs, with normotensive response to exercise, without EKG changes. Chest pain and shortness of breath returned to baseline with rest. Test reviewed with Dr. Marina. Referred By: Robert Viera Overread By: Ashley Brewster
== END ==
LOC: HO.CARD 07:56
PROVIDERS: PCP Registered Nurse; Visit Provider Internal Medicine Cardiovascular Disease
DX: R07.89 Other chest pain (principal)
CPT/HCPCS: 93017

== ENCOUNTER → 2023-09-09 07:59 | Outpatient (BNV) | payer BC, SELFPAY | PROVIDERS: PCP Registered Nurse; Visit Provider Nurse Practitioner | DX: I49.3 Ventricular premature depolarization (principal) | CPT/HCPCS: 93016; 93018 ==

== ENCOUNTER → 2024-03-05 08:24 | Outpatient (REF) | payer BC, SELFPAY ==
--- NOTE | 2024-03-05 08:27 | CA_ITS ---
Transthoracic Echocardiogram Patient (Last, First, Middle): Keyla Armando, Gender: Female Date of : 1965 Age: 58 Procedure Date: 03/05/2024 Procedure Type: Transthoracic Echocardiogram Location: OP Height: 165.1 cm Weight: 90.72 kg BSA: 1.98 m2 Heart Rate: bpm BP: 130 / 88 mmHg Airline Mechanic: AMIRA Referring MD: Robert Viera MD Galvanizer: Robert Viera MD Symptoms: I48.0 - Paroxysmal atrial fibrillation Study Quality: Technically Difficult ECG Rhythm: Sinus Conclusions: - 1. Low normal LV ejection fraction 50-55% with grade 1 diastolic dysfunction 2. Normal cardiac valvular Dopplers 3. Normal RV systolic pressure 4. No gross pericardial effusion Findings Procedure Information Contrast agent, definity, is being given per protocol without apparent complications. Left Ventricle Normal left ventricular cavity size. There is normal left ventricular wall thickness. The left ventricular systolic function is low normal. The visually estimated ejection fraction is between 50-55%. Spectral Doppler is indicative of an impaired relaxation filling pattern. E/E prime ratio is <8, consistent with normal filling pressures. Evidence suggests grade I (mild) diastolic dysfunction. Right Ventricle Normal right ventricular cavity size and systolic function. Atria Both atria are normal in size. There is lipomatous hypertrophy of the interatrial septum. There is no evidence of interatrial shunt. Aortic Valve Normal aortic valve structure and function. There is no aortic valve stenosis. There is no aortic valve regurgitation. Mitral Valve Normal mitral valve structure and function. There is trace mitral valve regurgitation. There is no mitral valve stenosis. Pulmonic Valve The pulmonic valve is likely normal. Tricuspid Valve Normal tricuspid valve structure. There is trace tricuspid valve regurgitation. The right ventricular systolic pressure is normal. The right ventricular systolic pressure is 21 mmHg. Normal right atrial pressure. There is no evidence of pulmonary hypertension. Great Vessels All visible segments of the aorta are normal in size. The pulmonary artery was not well visualized. There is no dilatation of the ascending aorta measuring 3.30 cm. Venous The inferior vena cava is normal in size and collapses greater than 50% with inspiration. Pericardium/Pleural There is no evidence of pericardial effusion. Prior Study Comparison Changes noted compared to prior study dated: 10/15/2021. LV systolic function is reduced Measurements 2D Linear Measurements IVSd: 0.77 0.6-0.9/0.6-1.0 cm LVIDd: 4.43 3.9-5.3/4.2-5.9 cm LVIDd Index: 2.24 2.4-3.2/2.2-3.1 cm/m2 LVIDs: 3.68 2.0-3.6 cm LVPWd: 0.81 0.7-1.1 cm LA Diam: 3.30 2.7-3.8/3.0-4.0 cm LAIDs Index: 1.67 1.5-2.3 cm/m2 LV Mass: 135.35 67-162/88-224 g LV Mass Index: 68.36 43-95/49-115 g/m2 LVOT Diam: 1.90 3.0+(-)1.3 cm 2D Systolic Function EF 4C: 51.30 >55% EF 2C: 51.00 >55% EF BiP: 49.90 >55% Mitral Valve MV Pk E: 0.78 MV PK A: 1.23 MV Decel Time: 226.00 E/A: 0.60 E'Lateral: 6.20 E'Medial: 4.90 E/E' Med: 16.00 E/E' Lat: 12.60 PHT: 66.00 MVA PHT: 3.33 Decel [place]: 3.46 Aortic Valve AoV Pk Emil: 1.53 AoV Mn Emil: 1.09 AoV VTI: 0.32 AoV Pk Grad: 9.00 Aov Mn Grad: 5.00 HAL Cont.VTI: 1.85 LVOT LVOT Pk Emil: 0.94 LVOT Mn Emil: 0.68 LVOT VTI: 0.21 LVOT Pk Grad: 4.00 LVOT Mn Grad: 2.00 LVOT Diam: 1.90 LVOT Area: 2.84 Diastolic Function MV Pk E: 0.78 MV Pk A: 1.23 E/A: 0.60 E'Medial: 4.90 E/E' Med: 16.00 E' Laterial: 6.20 E/E' Lat: 12.60 Right Ventricle TAPSE (mm): 22.80 TVS' Emil: 11.70 Tricuspid Valve TR Pk Emil: 2.10 TR Pk Grad: 18.00 RA Press: 3.00 RVSP: 21.00 Great Vessels Aorta Sinus of Valsalva: 2.86 2.0-3.[address] Ridge: 2.40 1.7-3.4 cm Ao Asc: 3.30 2.1-3.4 cm Ao Arch: 2.90 Updated in Other Vendor System with Status of Final Robert Viera MD electronically signed on 03/06/2024 5:00:48 PM with status of Final
== END ==
LOC: HO.CARD 08:24
PROVIDERS: Visit Provider Internal Medicine Cardiovascular Disease
DX: I48.0 Paroxysmal atrial fibrillation (principal)
CPT/HCPCS: 93306; Q9957

== ENCOUNTER → 2024-03-05 08:27 | Outpatient (BNV) | payer BC, SELFPAY | PROVIDERS: Visit Provider Internal Medicine Cardiovascular Disease | DX: I51.89 Other ill-defined heart diseases (principal); I48.0 Paroxysmal atrial fibrillation | CPT/HCPCS: 93306 ==

== ENCOUNTER 2024-03-13 15:27 | Outpatient (AMB) | payer BC, SELFPAY ==
--- NOTE | 2024-03-13 15:29 | MHC.OFFVIS ---
Vital Signs 03/13/24 15:30 Height 5 ft 5 in Weight 207 lb 3.752 oz BMI 34.5 BP 134/80 Blood Pressure Location Lt brachial Position Sitting Pulse 97 Intake Visit Reasons: 6m follow up Intake Note: 6 month follow-up feelng good c/o some times having a little chest pain in center of chest lasting about 30 seconds Biological Sciences Instructor Required: No Allergies Sulfa (Sulfonamide Antibiotics) [SULFA (SULFONAMIDE ANTIBIOTICS)] Allergy (Intermediate, Verified 08/20/22 14:44) rash amitriptyline Allergy (Unknown, Verified 08/20/22 14:44) lethargy codeine [CODEINE] Allergy (Unknown, Verified 08/20/22 14:44) RASH naproxen [From NAPROSYN] Allergy (Unknown, Verified 08/20/22 14:44) RASH Medication List - Last Reconciled 03/13/24 by Robert Viera MD albuterol sulfate 90 mcg/actuation 0 mcg inhalation cetirizine (Zyrtec) 10 mg PO DAILY PRN diltiazem HCl CD 180 mg PO DAILY duloxetine 60 mg PO DAILY lorazepam 1 tab PO BID PRN montelukast 10 mg PO DAILY rivaroxaban (Xarelto) 20 mg PO QPM semaglutide (Ozempic) mg subcut triamcinolone acetonide 0.1% apply bid to affected areas HPI Comments Details: Laura comes for follow-up. She continues to have this intermittent episodes of upper retrosternal sharp discomfort, not related to exertion. She underwent a stress test in August which was within normal limits. The symptoms are not exertional in nature at all times and can happen any time and last for about 30 seconds. She is quite worried about it. She has not had any significant episodes of atrial fibrillation with no prolonged palpitation irregular heartbeat. No SVT episodes. She is taking all her medications regularly. No heart failure symptoms. No bleeding issues or neurologic events. Echocardiogram recently showed low normal LVEF of 50-55% without any regional wall motion abnormality [facility] Medical History Obstructive sleep apnea Paroxysmal atrial fibrillation Diabetes Asthma SVT (supraventricular tachycardia) Surgical History Hx of lumbosacral spine surgery Family History Father Diabetes Mother Diabetes CVD (cardiovascular disease) CHF (congestive heart failure) HTN (hypertension) Social History Alcohol intake: current Alcohol intake frequency: does not drink Patient Tobacco Use Status: Never used Tobacco Review of Systems Const Denies chills, Denies fatigue, Denies fever(s), Denies frequent falls, Denies weakness, Denies weight gain and Denies weight loss ENT Denies dizziness Card Denies chest pain, Denies leg edema, Denies lightheadedness, Denies palpitations, Denies dyspnea, Denies dyspnea on exertion, Denies orthopnea and Denies other (loss of consciousness) Resp Denies cough, Denies dyspnea and Denies dyspnea on exertion GI Denies hematochezia and Denies change in stool character Musc Denies abnormal gait, Denies muscle weakness, Denies numbness, Denies radiating pain into limb and Denies tingling Neuro Denies abnormal gait, Denies dizziness, Denies frequent falls, Denies numbness, Denies tingling and Denies weakness Endo Denies fatigue and Denies palpitations Physical Exam Vital Signs: Last Vital Signs Pulse 97 03/13/24 15:30 BP 134/80 03/13/24 15:30 BMI result Body Mass Index 34.5 Const General: cooperative, healthy appearing, comfortable and no acute distress Orientation/consciousness: patient oriented x3 Neck Neck: Yes normal visual inspection Resp Effort & Inspection: normal respiratory effort Auscultation: clear to auscultation bilaterally, no crackles, no rales, no rhonchi and no wheezes Cardio Jugular venous distension: no JVD Rate: regular rate Rhythm: regular rhythm Heart sounds: S1 normal heart sound present, S2 normal heart sound present, no gallops, no murmurs and no rubs Neuro General: patient oriented x3 Extrem General: Yes normal to inspection and No no pedal edema Psych Appearance: grossly normal Mental Status: mental status grossly normal Speech and movement: Normal speech and movement present Assessment & Plan Assessment & Plan (1) Paroxysmal atrial fibrillation: Code(s): I48.0 - Paroxysmal atrial fibrillation Category: Medical Plan: Highly symptomatic paroxysmal atrial fibrillation as SVT both suppressed on current Cardizem therapy. She was doing well from that perspective. Continue Cardizem therapy. Avoidance of stimulants was discussed. Stress mitigation strategies were discussed. Continue full oral anticoagulation, currently on Xarelto 20 mg daily. Semi annual renal function test should be pursued. Continue participate in aggressive weight loss program. Continue CPAP therapy. If she has recurrent episodes of atrial fibrillation may need further treatment with antiarrhythmic drug therapy and/or ablation. (2) Diabetes: Code(s): E11.9 - Type 2 diabetes mellitus without complications Category: Medical Plan: Diabetes with recurrent episodes of atypical discomfort. Is borderline diabetes at this point time. Advise coronary calcium score to further assess coronary risk stratification. Further treatment based on the findings. If she has 0 calcium score, can continue to pursue aggressive risk factor modification with blood pressure control and sugar management. If she has markedly elevated coronary calcium score may require further testing with the CTA. This was discussed with her. She understands agrees and agreeable to pursued a treatment plan. Will follow up in the clinic in 1 year's time, sooner p.r.n.. Thank you for allowing me to partake in her care Orders: Orders CT Coronary Calcium Score 1 Week I48.0 - Paroxysmal atrial fibrillation Basic Metabolic Panel Today I48.0 - Paroxysmal atrial fibrillation Coding Level of Care Code Est Pt Level 4 (78732) Complex EM visit Add On G2211 Diagnoses Paroxysmal atrial fibrillation I48.0 Diabetes E11.9
[2024-03-13 15:30] VITALS: BP 134/80; PULSE 97; BMI 34.5
== END 2024-03-13 16:01 | disposition home or self-care (01) ==
PROVIDERS: Visit Provider Internal Medicine Cardiovascular Disease
DX: I48.0 Paroxysmal atrial fibrillation (principal); E11.9 Type 2 diabetes mellitus without complications
CPT/HCPCS: 99214

== ENCOUNTER → 2024-03-13 15:27 | Outpatient (BNVA) | payer BC, SELFPAY | PROVIDERS: Visit Provider Internal Medicine Cardiovascular Disease ==

== ENCOUNTER 2024-07-02 09:18 | Outpatient (AMB) | payer BC, SELFPAY ==
--- NOTE | 2024-07-02 09:57 | AM.OFFWIN_ITS ---
Intake Vital Signs 07/02/24 10:02 Weight 209 lb BP 110/78 Blood Pressure Location Lt brachial Position Sitting Pulse 62 Pulse Source Pulse Oximeter Pulse Oximetry (%) 98 Oxygen Delivery Method Room Air Intake Visit Reasons: EP Shingles? Intake Note: Patient here for rash (? shingles) under left breast that started tuesday. Patient Tobacco Use Status: Never used Tobacco Allergies Sulfa (Sulfonamide Antibiotics) [SULFA (SULFONAMIDE ANTIBIOTICS)] Allergy (Intermediate, Verified 07/02/24 10:03) rash amitriptyline Allergy (Unknown, Verified 07/02/24 10:03) lethargy codeine [CODEINE] Allergy (Unknown, Verified 07/02/24 10:03) RASH naproxen [From NAPROSYN] Allergy (Unknown, Verified 07/02/24 10:03) RASH Do you need a note to return to daycare/school/sports/work: Yes HPI HPI Comments History of Present Illness Details History of Present Illness - The patient is a 58-year-old female pr esenting with rash x 3 days. - The rash and pain began with a pain se nsation described as aching and resembling a bruise, localized to the left back and left chest. - The patient experienced itching primar sandip in the past few days but currently reports pain as the dominant symptom. - Her past medical history includes chic kenpox in childhood and a prior occurrence of shingles. - No fever is reported, and the patient denies noticing any fluid leakage from the rash. - Has had shingles previously and thinks she has it again. Physical Exam General: Cooperative, healthy appearing, comfortable, no acute distress and well developed Orientation: Patient oriented x3 Limitations: No limitations Head: Normal to inspection Ears: Hearing grossly normal bilaterally Nose: Normal External nose present Face and sinus: Normal facial exam Eyes: Appearance normal, both eyes and all related structures Neck: Normal visual inspection and Yes full ROM Respiratory: Normal respiratory effort and able to speak in complete sentences. Skin: 3 small clusters of raised erythematous rash on left anterior chest, under left breats and one small 1cm round erythematous, cluster left sided thoracic back, some fluid filled, no weeping noted. no warmth Neuro: Patient oriented x3 Extremities: Normal to inspection [facility] Medical History Obstructive sleep apnea Paroxysmal atrial fibrillation Diabetes Asthma SVT (supraventricular tachycardia) Surgical History Hx of lumbosacral spine surgery Family History Father Diabetes Mother Diabetes CVD (cardiovascular disease) CHF (congestive heart failure) HTN (hypertension) Social History Alcohol intake: current Alcohol intake frequency: does not drink Patient Tobacco Use Status: Never used Tobacco Physical Exam Vital Signs: Last Vital Signs Pulse 62 07/02/24 10:02 BP 110/78 07/02/24 10:02 Pulse Ox 98 07/02/24 10:02 Oxygen Delivery Method Room Air 07/02/24 10:02 Assessment & Plan Assessment & Plan (1) Shingles outbreak: Code(s): B02.9 - Zoster without complications Qualifiers: Herpes zoster complications: without complications Qualified Code(s): B02.9 - Zoster without complications Plan: Herpes zoster diagnosis was confirmed and treatment was initiated with Acyclovir to reduce viral spread since the symptoms began recently. Gabapentin was prescribed to manage neuralgic pain, with advice to adjust the dosage based on symptom severity and side effect tolerance. The patient was also instructed to continue using [id number] analgesics like Tylenol and Ibuprofen for additional pain management. Prescriptions were sent to the patient's pharmacy and guidance was provided on managing side effects. Patient was informed and verbally consented to the use of an ambient scribe for clinic note documentation during this visit. Medications: New valacyclovir 1,000 mg PO Q8H 7 days 21 tabs 0RF gabapentin 100 mg PO Q8H PRN 30 caps 0RF pain Coding Level of Care Code New Pt Level 3 (53638) Diagnoses Herpes zoster without complication B02.9 Herpes zoster complications: without complications
[2024-07-02 10:02] VITALS: BP 110/78; PULSE 62; O2SAT 98
== END 2024-07-02 10:25 | disposition home or self-care (01) ==
PROVIDERS: Visit Provider Physician Assistant
DX: B02.9 Zoster without complications (principal)

== ENCOUNTER → 2024-07-02 09:18 | Outpatient (BNVA) | payer BC, SELFPAY | PROVIDERS: Visit Provider Physician Assistant | DX: Z13.89 Encounter for screening for other disorder (principal) ==

== ENCOUNTER 2024-08-16 08:22 | Outpatient (REF) | payer BC, SELFPAY ==
[2024-08-16 09:46] LABS: Hemoglobin A1C 207.8201 umol/L; Total Hemoglobin (HGBA1C) 3656.0267 umol/L
[2024-08-16 10:15] LABS: Cholesterol 214 mg/dL (<200); HDL Cholesterol 51 mg/dL (>40); Triglycerides 133 mg/dL (<150)
[2024-08-16 10:55] LABS: Microalbum/Creatinine Ratio Ur 6.2 ug/mg cr (<30)
== END 2024-08-16 08:23 | disposition home or self-care (01) ==
LOC: HO.LAB 08:22
DX: Z00.00 Encounter for general adult medical examination without abnormal findings (principal); E11.9 Type 2 diabetes mellitus without complications
CPT/HCPCS: 36415; 80061; 82043; 82570; 83036; 84443

== ENCOUNTER 2024-11-08 16:17 | Emergency (ER) | payer BC, SELFPAY ==
--- NOTE | 2024-11-08 | ECG_ITS ---
Test Reason : cp Blood Pressure : */* mmHG Vent. Rate : 99 BPM Atrial Rate : 99 BPM P-R Int : 156 ms QRS Dur : 88 ms QT Int : 376 ms P-R-T Axes : 25 -18 27 degrees QTcB Int : 482 ms Normal sinus rhythm Prolonged QT Abnormal ECG When compared with ECG of 27-Sep-2022 14:07, No significant change was found Referred By: Generic ED Physician Electronically Signed By: Delgado Rosario
--- NOTE | ~2024-11-08 | XR_ITS ---
CLINICAL HISTORY: sob 1 view chest x-ray Comparison: CR/CT/SR - XR CHEST 2 VIEWS - 09/27/22 14:53 EDT Findings: No consolidation or effusion. Heart size is normal. No acute fracture. IMPRESSION: 1. No acute findings. This document has been electronically signed by: Ga Rowe MD on 11/08/2024 20:49:02
[2024-11-08 16:43] VITALS: BP 130/65; PULSE 97; RESP 18; TEMP 36.4; O2SAT 98; BMI 33.4
--- NOTE | 2024-11-08 16:43 | ED.CHESTPAIN ---
HPI - Chest Pain General Chief Complaint: Chest Pain Stated Complaint: SOB, CP Time Seen by Provider: 11/08/24 20:13 History of Present Illness HPI narrative: 59-year-old female presenting today with having shortness of breath. Chest tightness that is been ongoing for the last 2 days. Feels like somebody is crushing her. The pain is constant. Not associated with diaphoresis. Not associated with shortness of breath. Patient is from home. There is no leg swelling there is no history of blood clots. No history of, hypertension, high cholesterol, smoking, heart attack. Patient from home. Does have a history of SVT history of paroxysmal AFib. History of diabetes. Patient also noted a headache 2 days ago. Also noted having generalized malaise. Question weight loss over the last few weeks. MD complaint: chest pain Related Data Home Medications ?Medication ?Instructions ?Recorded ?Confirmed lorazepam 0.5 mg tablet 1 tab PO BID PRN anxiety 12/06/19 03/13/24 triamcinolone acetonide 0.1 % See Rx Instructions .Route .COMPLEX 12/06/19 03/13/24 topical cream duloxetine 60 mg capsule,delayed 60 mg PO DAILY 05/15/20 03/13/24 release montelukast 10 mg tablet 10 mg PO DAILY 05/15/20 03/13/24 cetirizine 10 mg capsule (Zyrtec) 10 mg PO DAILY PRN 03/31/21 03/13/24 albuterol sulfate 90 mcg/actuation 0 mcg inhalation 08/20/22 03/13/24 aerosol inhaler Previous Rx's ?Medication ?Instructions ?Recorded diltiazem HCl 180 mg 180 mg PO DAILY #90 caps 02/07/24 capsule,extended release 24 hr rivaroxaban 20 mg tablet (Xarelto) 20 mg PO QPM #30 tabs 04/04/24 gabapentin 100 mg capsule 100 mg PO Q8H PRN pain #30 caps 07/02/24 valacyclovir 1 gram tablet 1,000 mg PO Q8H 7 days #21 tabs 07/02/24 Allergies Allergy/AdvReac Type Severity Reaction Status Date / Time Sulfa (Sulfonamide Allergy Intermediate rash Verified 11/08/24 16:43 Antibiotics) (SULFA (SULFONAMIDE ANTIBIOTICS)) amitriptyline Allergy Unknown lethargy Verified 11/08/24 16:43 codeine (CODEINE) Allergy Unknown RASH Verified 11/08/24 16:43 naproxen (From NAPROSYN) Allergy Unknown RASH Verified 11/08/24 16:43 Review of Systems Review of Systems: No fever no chills positive chest pain positive shortness of breath PMFSH Past Medical History Attestation statement: The following information was validated with the patient. Medical History Obstructive sleep apnea Paroxysmal atrial fibrillation Diabetes Asthma SVT (supraventricular tachycardia) Surgical History Hx of lumbosacral spine surgery Family History Family History Father Diabetes Mother Diabetes CVD (cardiovascular disease) CHF (congestive heart failure) HTN (hypertension) Social History Social History Alcohol intake: current Alcohol intake frequency: does not drink Patient Tobacco Use Status: Never used Tobacco Smoked in Last 30 Days: No Use of substances other than those prescribed or required for medical reasons: No Advance Directives: No Advance Directives Information Provided: No Do you have a plan to hurt others: No Plan Physical Exam Exam: Exam: Appearance: Alert. Oriented X3. No acute distress. Eyes: Pupils equal, round and reactive to light. ENT: Pharynx normal. Neck: Normal inspection. Neck supple. No lymph nodes noted. No crepitus CVS: Normal heart rate and rhythm. Pulses normal. Normal S1 and S2 Respiratory: No respiratory distress. Breath sounds normal. No Wheezing. No rales Abdomen: Soft and nontender. No rigidity. No distention. good BS x4 Skin: Skin warm and dry. Normal skin color. Normal skin turgor. Extremities: No lower extremity edema. Neurovascular intact to all extremities. No Lacerations. No Rash Neuro: Oriented X 3. No motor deficit. No sensory deficit. Moving all extermities. No slurred speech Vital Signs: Vital Signs: Last Vital Signs Temp 98.4 F 11/08/24 20:55 Pulse 89 11/08/24 22:16 Resp 16 11/08/24 22:16 BP 112/68 11/08/24 22:16 Pulse Ox 97 11/08/24 22:16 O2 Del Method Room Air 11/08/24 22:16 BMI result Body Mass Index 33.4 Course Course Course Narrative: This is an RME: Additional HPI, ROS, PE not included below will be deferred to primary provider. RME assessment and note performed by: Cathi Sullivan PA-C This is a 17-capp-and-female, with a hx of SVT, paroxysmal afib and diabetes, who presents to the ER with a complaint of SOB and generalized weakness x 1 week. Patient well-appearing, appears to be under no acute distress. Vital signs within normal limits. Plan: Labs, EKG, viral swabs Medical Decision Making Medical Decision Making [facility] Narrative: My interpretation patient's chest x-ray was grossly negative. No pneumonia no pneumothorax. Patient is troponin was normal x2 sets. History not consistent with ACS. BNP is normal there is no evidence for congestive heart failure TSH is normal dose no evidence for hypo or hyperthyroid patient's hemoglobin is 13 there is no evidence for anemia. Unlikely to have PE as patient is on Xarelto. Has a history of atrial fibrillation. Currently well-appearing. No distress. COVID flu RSV were all negative. Pain atypical negative enzymes x2 sat patient's heart score is less than 3. Differential Diagnosis Differential Diagnoses: The differential diagnosis associated with the presentation includes ACS, pneumonia, PE Admission/Observation Consideration of admission/observation: Escalation of care including admission/observation considered Lab Data [facility] Lab Attestation statement: I reviewed the patient's lab results. 11/08/24 17:05 11/08/24 17:05 Labs: Lab Results 11/08/24 11/08/24 11/08/24 Range/Units 17:03 17:05 21:00 WBC 7.3 (4.8-10.8) X10*3/uL RBC 4.35 (4.20-5.50) X10*6/uL Hgb 13.0 (12.0-16.0) g/dl Hct 37.7 (37.0-47.0) % MCV 86.7 (80.0-98.0) fL MCH 29.9 (27.0-33.0) pg MCHC 34.5 (31.0-35.0) g/dl RDW 12.3 (11.0-16.0) % Plt Count 355 (160-400) X10*3/uL MPV 9.8 (9.4-12.3) fL Immature Gran % (Auto) 0.4 (0.0-0.4) % Neut % (Auto) 57.4 (45-73) % Lymph % (Auto) 31.3 (20-40) % Piute % (Auto) 8.4 (2-11) % Eos % (Auto) 1.9 (0-4) % Baso % (Auto) 0.6 (0-2) % Lymph # (Auto) 2.3 (1.2-4.9) X10*3/uL Piute # (Auto) 0.6 (0.1-1.2) X10*3/uL Eos # (Auto) 0.1 (0.0-0.4) X10*3/uL Baso # (Auto) 0.0 (0.0-0.2) X10*3/uL Abs Immat Gran (auto) 0.03 (0.00-0.03) X10*3/uL Absolute Neuts (auto) 4.2 (2.0-8.3) x10*3/uL Absolute Nucleated RBC 0.000 (0.0-0.012) X10*3/uL Nucleated RBC % (auto) 0.0 (0.0-0.2) /100WBC Sodium 138 (135-145) mmol/L Potassium 3.2 L (3.3-5.1) mmol/L Chloride 104 (96-108) mmol/L Carbon Dioxide 26 (22-29) mmol/L Anion Gap 11 L (12-20) BUN 14 (9-16) mg/dL Creatinine 0.88 (0.5-1.4) mg/dL Estim Creat Clear Calc 76.8 Estimated GFR > 60 Random Glucose 127 H (60-115) mg/dL Calcium 8.8 D (8.4-10.2) mg/dL Magnesium 2.2 (1.6-2.6) mg/dL Total Bilirubin 0.3 (0.0-1.0) mg/dL Direct Bilirubin 0.1 (0.0-0.5) mg/dL AST 24 (5-31) U/L ALT 18 (0-31) U/L Alkaline Phosphatase 106 (39-117) U/L Troponin I High Sens < 2.7 < 2.7 (<3.5-17.0) ng/L NT-Pro-B Natriuret Pep 65.9 (<300) pg/mL Total Protein 7.3 (6.5-8.0) g/dL Albumin 4.2 (3.5-5.0) g/dL TSH 3.52 (0.32-4.0) uIU/mL COVID-19 (JAMILAH) Negative (Negative) COVID-19 Clin Com See Note Influenza Type A (JAKE) Negative (Negative) Influenza Type B (JAKE) Negative (Negative) Influenza A & B Note See Note Independent Interpretation I performed an independent interpretation of an: EKG (Sinus heart rate is 100 AK QRS QTC normal no acute ST segment elevation) and Plain X-Ray (Chest x-ray negative no pneumonia no pneumothorax) Radiology Impression Discussion of test interpretation with radiology: I have reviewed the radiologist's reading. External Record Review External record reviewed: Inpatient record Social Determinants Patient?s care significantly limited by Social Determinants of Health including: Problems related to primary support group Discharge Plan Discharge Clinical Impression: Chest pain Patient Disposition: Home, Self-Care Instructions: Chest Pain (DC) Prescriptions: No Action diltiazem HCl 180 mg capsule,extended release 24hr 180 mg PO DAILY Qty: 90 3RF Xarelto 20 mg tablet 20 mg PO QPM Qty: 30 12RF triamcinolone acetonide 0.1 % cream See Rx Instructions .ROUTE .COMPLEX Rx Instructions: apply bid to affected areas lorazepam 0.5 mg tablet 1 tab PO BID PRN (Reason: anxiety) duloxetine 60 mg capsule,delayed release(DR/EC) 60 mg PO DAILY montelukast 10 mg tablet 10 mg PO DAILY Zyrtec 10 mg capsule 10 mg PO DAILY PRN albuterol sulfate 90 mcg/actuation HFA aerosol inhaler 0 mcg inhalation valacyclovir 1 gram tablet 1,000 mg PO Q8H 7 Days Qty: 21 0RF gabapentin 100 mg capsule 100 mg PO Q8H PRN (Reason: pain) Qty: 30 0RF Referrals: Jhoana Forbes PA [Primary Care Provider, Internal Medicine] - 11/12/24 Print Language: Divehi
[2024-11-08 17:11] LABS: MANUAL DIFF FLAG NO
[2024-11-08 17:13] LABS: Hematocrit 37.7 % (37.0-47.0); Hemoglobin 13.0 g/dl (12.0-16.0); Imm Gran Abs Auto 0.03 X10*3/uL (0.00-0.03); Imm Gran Pct Auto 0.4 % (0.0-0.4); Lymphocytes Absolute Auto 2.3 X10*3/uL (1.2-4.9); Mean Corpuscular HGB Conc 34.5 g/dl (31.0-35.0); Mean Corpuscular Hemoglobin 29.9 pg (27.0-33.0); Mean Corpuscular Volume 86.7 fL (80.0-98.0); NRBC Abs Auto 0.000 X10*3/uL (0.0-0.012); NRBC Pct Auto 0.0 /100WBC (0.0-0.2); Platelet Count 355 X10*3/uL (160-400); Red Blood Count 4.35 X10*6/uL (4.20-5.50); White Blood Count 7.3 X10*3/uL (4.8-10.8)
[2024-11-08 17:27] LABS: COVID-19 Test Negative (Negative); IDNOW Serial# 58CA691E
[2024-11-08 17:28] LABS: IDNOW Serial# 55D5AD1C; Influenza B2 Negative (Negative)
[2024-11-08 17:29] LABS: Alanine Aminotransferase 18 U/L (0-31); Albumin Level 4.2 g/dL (3.5-5.0); Alkaline Phosphatase 106 U/L (39-117); Anion Gap 11 (12-20); Aspartate Amino Transferase 24 U/L (5-31); Blood Urea Nitrogen 14 mg/dL (9-16); Calcium 8.8 mg/dL (8.4-10.2); Carbon Dioxide 26 mmol/L (22-29); Chloride 104 mmol/L (96-108); Creatinine Clr Calc Pharmacy 76.8; Estimated Glomerular Filt Rate > 60; Magnesium 2.2 mg/dL (1.6-2.6); Potassium 3.2 mmol/L (3.3-5.1); Sodium 138 mmol/L (135-145); Total Protein 7.3 g/dL (6.5-8.0)
[2024-11-08 17:36] LABS: NT Pro B Type Natriuretic Pept 65.9 pg/mL (<300)
[2024-11-08 17:38] LABS: Troponin-I High Sensitivity < 2.7 ng/L (<3.5-17.0)
--- NOTE | 2024-11-08 20:15 | PC.NURSE ---
pt back to room from triage placed on color television console monitor awaiting to be seen by ed provider
--- OUTSIDE RECORDS SUMMARY | 2024-11-08 20:26 | XMS_ITS | Encounter Summary ---
Author Organization [facility] Address [address] [place] [address] [place] [phone] Phone Care Team Providers Care Drill Press Tender Name Role Phone Alma Herrera MATHS TUTOR Primary Care Provider Darell Tompkins MD Unavailable Unknown, Unknown Primary Care Provider Maci Perez [facility] Primary Care Provider Pcp, Unknown Primary Care Provider Maci Madison [employer] INTAKE WORKER Primary Care Provider Jhoana Forbes PA-C Primary Care Provider [phone] Reason for Visit * Reason Onset Date Comments Cough 12/29/2021 Encounter Details Date Type Department Care Team (Late st Contact Info) Description 12/29/2021 Nurse Triage [facility] Internal Medicine [address] [place] [address] Alma Herrera, MATHS TUTOR [address] [facility] [address] [place] [address] [email or web address] Cough Social History Tobacco Use Types Packs/Day Years Used Date Smoking Tobacco: Never Smokeless Tobacco: Never Alcohol Use Standard Drinks/Week Comments Yes 0 (1 standard drink = 0.6 oz pur e alcohol) 4 glasses per year Child or Family Care Answer Date Record ed Do you have problems with on e of the following making it difficult for you to work, study, or receive health care? No 07/01/2021 Education Answer Date Recorded Are you interested in help w ith more adult education (for example, completing high school, GED, job training, learning the [place] language, technical skills, or developing parenting skills)? No 07/01/2021 Food Answer Date Recorded Within the past 6 months we worried whether our food would run out before we got money to buy more. Never True 07/01/2021 Within the past 6 months the food we bought just didn't last and we didn't have enough money to get more. Never True Residential Stability Answer Date Recor ded What is your housing situation today? I have carolyn hutchinson 07/01/2021 How many times have you move d in the past 12 months? Zero (I did not move) 07/01/2021 06 Are you worried that in t he next 2 months, you may not have your own housing to live in? No 07/01/2021 Paying for Meds Answer Date Recorded Do you have trouble paying for medicines? No 07/01/2021 Paying Utility Bills Answer Date Record ed Do you have trouble paying your heating or elect ricity bill? No 07/01/2021 Transportation Answer Date Recorded Has the lack of transportati on kept you from medical appointments or from getting medications? No 07/01/2021 Unemployment Answer Date Recorded Are you currently unemployed or working on a part-time or temporary basis, and looking for work? No 07/01/2021 Comments No Sex and Gender Information Value Date Recorded Sex Assigned at Female 03/02/2022 1:14 PM EST Legal Sex Female 9:40 PM EDT Gender Identity Female 03/02/2022 1:14 PM EST Sexual Orientation Straight 03/02/2022 1: 14 PM EST documented as of this encounter Progress Notes * Kavya Stanton RN - 12/29/2021 11:01 AM EST Home care advice given-she had not been taking any OTC meds for the cough. Will call back for worsening symptoms. Asking for a refill of albuterol inhaler but it does not appear it has been ordered since 2018-can a Rx be sent? Nurse Triage Encounter Note Reason for Triage Keyla Armando contacted office for Medication Refill,Cough Call Disposition Home Care Patient/caregiver understands and will follow disposition: Yes Patient/caregiver understands and will follow care advice: Yes, Plans To Follow Advice Disposition Comments: Protocols used: [id number]-[id number] Care Advice Given Care Advice Patient/Caregiver understands and will follow care advice?: Yes, plans to follow advice HOME CARE: * You should be able to treat this at home. COUGH MEDICINES: * COUGH DROPS: Wnyx-hvy-nuabsox cough drops can help a lot, especially for mild coughs. They soothean irritated throat and remove the tickle sensation in the back of the throat. Cough drops are easyto carry with you. * COUGH SYRUP WITH DEXTROMETHORPHAN: An cbhy-kdd-xhmxrow cough syrup can help your cough. The most common cough suppressant in mbns-fpo-bfqkbkz cough medicines is dextromethorphan. * HOME REMEDY - HARD CANDY: Hard candy works just as well as gbeq-yjd-ywvjlpv cough drops. People who have diabetes should use sugar-free candy. * HOME REMEDY - HONEY: This old home remedy has been shown to help decrease coughing at night. The adult dosage is 2 teaspoons (10 ml) at bedtime. Honey should not be given to infants under one year of age. REASSURANCE AND EDUCATION - COUGH: * Coughing is the way that our lungs remove irritants and mucus. It helps protect our lungs from getting pneumonia. * You can get a dry hacking cough after a chest cold. Sometimes this type of cough can last 1 to 3 weeks, and be worse at night. * You can also get a cough after being exposed to irritating substances like smoke, strong perfumes, and dust. * Here is some care advice that should help. COUGHING SPELLS: * Drink warm fluids. Inhale warm mist. This can help relax the airway and also loosen up phlegm. * Suck on cough drops or hard candy to coat the irritated throat. PREVENT DEHYDRATION: * Drink adequate liquids. * This will help soothe an irritated or dry throat and loosen up the phlegm. HUMIDIFIER: * If the air is dry, use a humidifier in the bedroom. * Dry air makes coughs worse. EXPECTED COURSE: * The expected course depends on what is causing the cough. * Viral bronchitis (chest cold) causes a cough that lasts 1 to 3 weeks. Sometimes you may cough up lots of phlegm (sputum, mucus). The mucus can normally be white, main, yellow, or green. CALL BACK IF: * Difficulty breathing * Cough lasts more than 3 weeks * Fever lasts more than 3 days * You become worse CALL BACK IF: * Difficulty breathing occurs * Fever lasts more than 3 days * Nasal discharge lasts more than 10 days * Cough lasts more than 3 weeks * You become worse Patient will call back with additional questions or if symptoms change or worsen Kavya Stanton RN Reason for Disposition and Assessment Reason for Disposition ??? Cough with cold symptoms (e.g., runny nose, postnasal drip, throat clearing) Answer Assessment - Initial Assessment Questions 1. ONSET: When did the cough begin? tuesday 2. SEVERITY: How bad is the cough today? moderate-worse than it was 3. SPUTUM: Describe the color of your sputum (none, dry cough; clear, white, yellow, green) Yes-yellow thick 4. HEMOPTYSIS: Are you coughing up any blood? If so ask: How much? (flecks, streaks, tablespoons, etc.) no 5. DIFFICULTY BREATHING: Are you having difficulty breathing? If Yes, ask: How bad is it? (e.g., mild, moderate, severe) - MILD: No SOB at rest, mild SOB with walking, speaks normally in sentences, can lie down, no retractions, pulse < 100. - MODERATE: SOB at rest, SOB with minimal exertion and prefers to sit, cannot lie down flat, speaksin phrases, mild retractions, audible wheezing, pulse 100-120. - SEVERE: Very SOB at rest, speaks in single words, struggling to breathe, sitting hunched forward,retractions, pulse > 120 mild 6. FEVER: Do you have a fever? If Yes, ask: What is your temperature, how was it measured, and when did it start? no 7. CARDIAC HISTORY: Do you have any history of heart disease? (e.g., heart attack, congestive heart failure) A-fib 8. LUNG HISTORY: Do you have any history of lung disease? (e.g., pulmonary embolus, asthma, emphysema) asthma 9. PE RISK FACTORS: Do you have a history of blood clots? (or: recent major surgery, recent prolonged travel, bedridden) no 10. OTHER SYMPTOMS: Do you have any other symptoms? (e.g., runny nose, wheezing, chest pain) Wheezing getting worse started yesterday 11. : Is there any chance you are ? When was your last menstrual period? no 12. TRAVEL: Have you traveled out of the country in the last month? (e.g., travel history, exposures) no Protocols used: [id number] * Pretty Maravilla - 12/29/2021 8:59 AM EST Pt called and requests a refill on her albuterol inhaler. She asked to please be contacted by nursing to discuss her symptoms. States she has been coughing and wheezing. Please advise. Thank you. documented in this encounter Plan of Treatment Upcoming Encounters Date Type Department Care Team (Late st Contact Info) Description 01/17/2025 4:00 PM EST Office Visit [facility] [address] [place] [phone] Jhoana Forbes PA-C [address] [place] [address] [email or web address] documented as of this encounter Visit Diagnoses Diagnosis Wheezing- Primary documented in this encounter Additional Health Concerns Infection Onset Date Last Indicated Resolved Time COVID-19 05/10/2024 05/10/2024 05/31/2024 1:22 AM EDT Assessment Noted Time PHQ-2 Depression Total Score: 0 07/02/19 1:04 PM EDT documented as of this encounter Care Teams Drill Press Tender Relationship Specialty Start Date End Date Alma Herrera NP PCP - General 12/27/16 04/26/23 Unknown, Unknown, PCP - General 04/27/23 09/05/23 Maci May FNP [address] [address] [email or web address] PCP - General Nurse Practitioner 09/06/23 03/05/24 Pcp, Unknown PCP - General 03/06/24 03/13/24 Maci May FNP [address] [address] [email or web address] PCP - General Nurse Practitioner 03/14/24 04/09/24 Jhoana Forbes PA-C [address] [place] [id number] [email or web address] PCP - General Physician Family Literacy Coordinator 04/10/24 Darell Tompkins MD [address] [place] [phone] Ophthalmology 06/08/19 documented as of this encounter Additional Source Comments The information contained in this document represents components of the legal health record. It is not the complete legal health record.[facility]
--- OUTSIDE RECORDS SUMMARY | 2024-11-08 20:26 | XMS_ITS | Encounter Summary ---
Author Organization [facility] Address [address] [place] [phone] Phone Care Team Providers Care Clinical Statistical Programmer Name Role Phone Darell Tompkins MD Unavailable Jhoana Forbes PA-C Primary Care Provider [phone] Reason for Visit * Reason Comments Medication Refill Encounter Details Date Type Department Care Team (Late st Contact Info) Description 08/10/2024 Refill [facility] [address] [place], [place] [phone] Jhoana Forbes PA-C [address] [place] [address] [email or web address] Medication Refill Social History Tobacco Use Types Packs/Day Years Used Date Smoking Tobacco: Never Smokeless Tobacco: Never Alcohol Use Standard Drinks/Week Comments Not Currently 0 (1 standard drink = 0.6 oz pur e alcohol) 1-2 drinks, 3-5 x year Child or Family Care Answer Date Record ed Do you have problems with on e of the following making it difficult for you to work, study, or receive health care? No 07/08/2022 Education Answer Date Recorded Are you interested in more education? Not on jed e 07/10/2024 Are you concerned about learning? Not on file 07/10/2024 No 07/10/2024 No 07/10/2024 Food Answer Date Recorded Within the past 6 months we worried whether our food would run out before we got money to buy more. Never True 07/08/2022 Within the past 6 months the food we bought just didn't last and we didn't have enough money to get more. Never True Residential Stability Answer Date Recor ded What is your housing situation today? I have carolyn hutchinson 07/08/2022 How many times have you move d in the past 12 months? Zero (I did not move) 07/08/2022 Paying for Meds Answer Date Recorded Do you have trouble paying for medicines? No 07/08/2022 Paying Utility Bills Answer Date Record ed Do you have trouble paying your heating or elect ricity bill? No 07/08/2022 Transportation Answer Date Recorded Has the lack of transportati on kept you from medical appointments or from getting medications? No 07/08/2022 Unemployment Answer Date Recorded Are you currently unemployed or working on a part-time or temporary basis, and looking for work? No 07/01/2021 Digital Access Answer Date Recorded No 07/10/2024 No 07/10/2024 Reliable internet access at home? Not on file 07/10/2024 Device with a working camera? Not on file Intimate Partner Violence Answer Date R ecorded Denied Basic Needs Not on file 04/26/2024 In the past 12 months have y ou been in a relationship with a person who hurts, threatens, or tries to control you? No 04/26/2024 Worried food would run out Not on file 04/26 In the past 12 months have y ou been in a relationship with a person who hurts, threatens, or tries to control you? No 04/26/2024 Comments No Sex and Gender Information Value Date Recorded Sex Assigned at Female 03/02/2022 1:14 PM EST Legal Sex Female 9:40 PM EDT Gender Identity Female 03/02/2022 1:14 PM EST Sexual Orientation Straight 03/02/2022 1: 14 PM EST documented as of this encounter Progress Notes * Satish Cruz MA - 08/14/2024 11:01 AM EDT Spoke to pt, states she does not need the medication any more. * Satish Cruz MA - 08/13/2024 11:12 AM EDT Jhoana Forbes PA-C to [facility] (Selected Message) [place] 08/13/24 10:41 AM Can we see if the patient still requires this medication? Originally prescribed for pain from shingles, but if her pain is improved then she will no longer need the medication. Myct msg sent. * Satish Cruz MA - 08/10/2024 4:26 PM EDT Images from the original note were not included. Rx Care Gap Status - Instructions for Clinical Staff (prescriber discretion applies): n/a Visit Info Last visit: 07/04/2024 Jhoana Forbes PA-C - Internal Medicine [facility] > Requested f/u: Return if symptoms worsen or fail to improve. Upcoming visit: 10/30/2024 Jhoana Forbes PA-C - Internal Medicine [facility] ACTIONS TAKEN BY Satish Cruz MA - Checked PDMP/[place] Non-Opioid Controlled Substance Without PDMP Rx Protocol - pregabalin Renewal is at prescriber discretion. Visit in the past 12 months: Yes documented in this encounter Plan of Treatment Upcoming Encounters Date Type Department Care Team (Late st Contact Info) Description 01/17/2025 4:00 PM EST Office Visit [facility] [address] [place] [address] Jhoana Forbes PA-C [address] [place] [address] [email or web address] documented as of this encounter Visit Diagnoses Diagnosis Acute pain associated with herpes zoster documented in this encounter Additional Health Concerns Assessment Noted Time PHQ-2 Depression Total Score: 0 04/27/19 25 3:06 PM EDT documented as of this encounter Care Teams Clinical Statistical Programmer Relationship Specialty Start Date End Date Jhoana Forbes PA-C [address] [place] [address] PCP - General Physician Burr Filer 04/10/24 Darell Tompkins MD [address] [place] [address] [place] [address] Ophthalmology 06/08/19 documented as of this encounter Additional Source Comments The information contained in this document represents components of the legal health record. It is not the complete legal health record.[facility]
--- OUTSIDE RECORDS SUMMARY | 2024-11-08 20:26 | XMS_ITS | Encounter Summary ---
Author Organization [facility] Address [address] [place] [phone] Phone Care Team Providers Care Access Developer Name Role Phone Darell Tompkins MD Unavailable Jhoana Forbes PA-C Primary Care Provider [phone] Reason for Visit * Reason Comments Medication Refill Encounter Details Date Type Department Care Team (Late st Contact Info) Description 08/05/2024 Refill [facility] [address] [place], [place] [phone] Jhoana Forbes PA-C [address] [place] [address] [email or web address] Medication Refill Social History Tobacco Use Types [...] Progress Notes * Satish Cruz MA - 08/06/2024 9:08 AM EDT Rx Care Gap Status - Instructions for Clinical Staff (prescriber discretion applies): n/a Visit Info Last visit: 07/04/2024 Jhoana Forbes PA-C - Internal Medicine [facility] > Requested f/u: Return if symptoms worsen or fail to improve. Upcoming visit: 10/30/2024 Jhoana Forbes PA-C - Internal Medicine [facility] ACTIONS TAKEN BY Satish Cruz MA - No action needed by clinical staff Antidepressant / Anxiolytics (Non-Benzodiazepine) Rx Protocol - duloxetine HCl Criteria met; renew for up to 12 months. Visit in the past 14 months: Yes Asthma / COPD Inhalers Rx Protocol - montelukast sodium Criteria met; renew for up to 12 months. Visit in the past 14 months: Yes documented in this encounter Plan of Treatment Upcoming Encounters Date Type Department Care Team (Late st Contact Info) Description 01/17/2025 4:00 PM EST Office Visit [facility] Internal [facility] [address] [place] [address] Jhoana Forbes PA-C [address] [place] [address] [email or web address] documented as of this encounter Visit Diagnoses Diagnosis Depression Depressive disorder, not elsewhere classified Mild intermittent asthma without complication documented in this encounter Additional Health Concerns Assessment Noted Time PHQ-2 Depression Total Score: 0 04/27/19 25 3:06 PM EDT documented as of this encounter Care Teams Access Developer Relationship Specialty Start Date End Date Jhoana Forbes PA-C [address] [place] [address] [email or web address] PCP - General Physician [employer] Architect 04/10/24 Darell Tompkins MD [address] [place] [address] [place] [id number] Ophthalmology 06/08/19 documented as of this encounter Additional Source Comments The information contained in this document represents components of the legal health record. It is not the complete legal health record.[facility]
--- OUTSIDE RECORDS SUMMARY | 2024-11-08 20:26 | XMS_ITS | Encounter Summary ---
Author Organization [facility] Address [address] [place] [phone] Phone Care Team Providers Care [employer]roleum [employer]inery Worker Name Role Phone Darell Tompkins MD Unavailable Jhoana Forbes PA-C Primary Care Provider [phone] Reason for Visit * Reason Onset Date Comments Migraine 11/05/2024 Encounter Details Date Type Department Care Team ([facility] st Contact Info) Description 11/05/2024 Telephone [employer] [facility] [address] [place], [place] [phone] Kyle Terry RN [phone] [place] [address] [email or web address] Migraine Social History Tobacco Use Types Packs/Day Years [...] of this encounter Progress Notes * Kavya Stanton, RN - 11/07/2024 3:12 PM EDT Spoke to Keyla and she reports her symptoms are not improving and seem to be worsening. She hasbeen sick for the past 10 days with a migraine, diarrhea. She was advised earlier this week to try to stick to a BRAT diet which she did but she still has extreme fatigue. She has to pause to catch her breath and her lungs feel heavy with any exertion. Covid test was negative last week. She has nottested this week. She plans to go to [facility] and will call for any needed follow up. * Kavya Stanton RN - 11/07/2024 12:37 PM EDT LVM to call the office * Kavya Stanton RN - 11/07/2024 10:28 AM EDT LVM to call the office * Kavya Stanton RN - 11/07/2024 10:28 AM EDT Keyla LVM stating she has been experiencing increased SOB and chest pain * Kyle Terry RN - 11/05/2024 2:56 PM EDT Pt reports that her Migraines are now better, is mainly concerned about the weakness and fatigue she is having, states she was not eating well for the past 8 days, was not eating even one full meal in the day. Has been having stomach pain and loose stool since Tuesday, feels very weak. Loose stool since this past Tuesday. No signs of dehydration, Pt wants to know how to manage this at home, advisedto focus on hydration and sticking with foods that are easier to digest - recommend BRAT diet/ starchy foods. Advised she can try broth as it can be hydrating and electrolyte, advised she can also use Gatorade. Advised to keep up with activity as tolerated. Advised if symptoms worsen or if loose stools last longer that 7 days pt will need to get stool testing and eval in office. She will call back as needed. Fyi to pcp * Kyle Terry RN - 11/05/2024 1:13 PM EDT Pt left a message, has had migraine, chills and fever since last Tuesday - states 8 days ago, is very fatigued and weak, ?'s what she can do for it. documented in this encounter Plan of Treatment Upcoming Encounters Date Type Department Care Team (Late st Contact Info) Description 01/17/2025 4:00 PM EST Office Visit [facility] Internal Medicine [address] [place], [place] [phone] Jhoana Forbes PA-C [address] [place] [address] [email or web address] documented as of this encounter Visit Diagnoses Not on filedocumented in this encounter Additional Health Concerns Assessment Noted Time PHQ-2 Depression Total Score: 0 04/27/19 25 3:06 PM EDT documented as of this encounter Care Teams [employer] Worker Relationship Specialty Start Date End Date Jhoana Forbes PA-C [address] [place] [address] PCP - General Physician Senior Radiation Therapist 04/10/24 Darell Tompkins MD [address] [place] [address] [place] [id number] Ophthalmology 06/08/19 documented as of this encounter Additional Source Comments The information contained in this document represents components of the legal health record. It is not the complete legal health record.[facility]
--- OUTSIDE RECORDS SUMMARY | 2024-11-08 20:26 | XMS_ITS | Clinical Summary ---
Author Organization [facility] Address [address] [place] [phone] Phone Care Team Providers Care Quarter Section Ironer Name Role Phone Darell Tompkins MD Unavailable Jhoana Forbes PA-C Primary Care Provider Allergies Active Allergy Reactions Criticality Noted Date Comments Amitriptyline Other (See Comments) 12/27/2016 drowsiness Codeine Phosphate Rash Low 12/27/2016 Naproxen Rash Low 12/29/2016 Penicillins Rash Low 12/27/2016 Sulfa (Sulfonamide Antibiotics) Rash Low 12/27/2016 Medications multivitamin per tablet occasionally Active cholecalciferol (VITAMIN D3) 1,000 unit tablet Take 1,000 Units by mouth daily. occasionally Active cetirizine (ZYRTEC) 10 MG tablet Take 10 mg by mouth daily. Active clobetasol 0.025 % Crea Apply 1 application topically 2 (two) times a day as needed. 60 g 08/06/19 20 Active XARELTO 20 mg Tab Take 20 mg by mouth daily with dinner. 04/01/19 21 Active dilTIAZem (CARDIZEM CD) 180 MG 24 hr capsule TAKE 1 CAP(180 MG) BY MOUTH DAILY 08/15/19 21 Active clotrimazole-bet amethasone (LOTRISONE) cream Apply topically 2 (two) times a day. 15 g 06/06/19 25 Active lidocaine (LIDODERM) 5 %Indications:Acu te pain associated with herpes zoster Place 1 patch onto the skin daily. Remove & Discard patch within 12 hours or as directed by 30 patch 07/05/19 25 Active Additional Information Patient not taking.Reported on 10/29/2024 DULoxetine (CYMBALTA) 60 MG capsuleIndicatio ns:Depression TAKE 1 CAPSULE BY MOUTH EVERY DAY 90 capsule 3 08/07/19 25 Active montelukast (SINGULAIR) 10 mg tabletIndication s:Mild intermittent asthma without complication TAKE 1 TABLET BY MOUTH EVERY DAY 90 tablet 3 08/07/19 25 Active albuterol 90 mcg/actuation inhalerIndicatio ns:Wheezing INHALE 2 PUFFS INTO THE LUNGS EVERY 6 HOURS NEEDED FOR WHEEZE 8.5 g 1 08/21/19 25 Active LORazepam (ATIVAN) 0.5 MG tabletIndication s:Anxiety TAKE 1 TABLET (0.5 MG TOTAL) BY MOUTH DAILY NEEDED FOR ANXIETY (MUST LAST ONE MONTH). 12 tablet 09/29/19 25 Active vitamin E acetate (VITAMIN E ORAL) Take 1 capsule by mouth daily. occasionally 025 Discontinu ed(No longer taking) pregabalin (LYRICA) 25 MG capsuleIndicatio ns:Acute pain associated with herpes zoster Take 1 capsule (25 mg total) by mouth 2 (two) times a day. 30 capsule 07/07/19 25 025 Discontinu ed(No longer taking) doxycycline monohydrate (MONODOX) 100 MG capsuleIndicatio ns:Abscess Take 1 capsule (100 mg total) by mouth 2 (two) times a day for 7 days. 14 capsule 10/19/19 25 025 Active Problems Problem Noted Date Diagnosed Date Viral illness 10/29/2024 Assessment & Plan (10/29/2024 1:44 PM EDT): Viral illness is most likely the diagnosis here with the slight neck stiffness headache and light fever and chills but no upper respiratory symptoms. Symptomatic treatment with Tylenol, she may use Excedrin given the Xarelto, okay. Drink plenty of water to stay well-hydrated. Urinary urgency 10/18/2024 Assessment & Plan (10/18/2024 5:12 PM EDT): She reports urinary urgency, lower abdominal pain, and urinary frequency for the past 3 months. Will obtain a UA to further assess. If positive for UTI, will treat with antibiotics. If negative, possibly in the setting of atrophic vaginitis and can trial a course of estradiol cream given her postmenopausal status. Abscess 10/18/2024 Assessment & Plan (10/18/2024 5:13 PM EDT): She reports an enlarging pimple in her left axilla that is tender to the touch and warm. On exam there is a 1 cm round, nonmobile, hard palpable mass in the left armpit with overlying erythema and warmth, no fluctuance or induration. Likely in the setting of an abscess from prior folliculitis due to shaving. She does have an allergy to penicillins and sulfas, will treat with doxycycline 100 mg twice daily x 7 days, no incision and drainage indicated at this time. Side effects of doxycycline including GI upset and photosensitivity discussed. Also advised warm compresses. Routine general medical exam ination at a [facility] care facility 10/18/2024 Assessment & Plan (10/18/2024 5:13 PM EDT): She is due for multiple vaccines including her shingles vaccine, Tdap vaccine and seasonal flu vaccine. First dose of shingles vaccine given in the office today, will follow-up in 3 months and administer the second dose of the shingles vaccine then. Discussed side effects of the vaccine today. She is not interested in the flu vaccine this season. She is planning on getting her Tdap vaccine in the future. Acute pain associated with herpes zoster 025 Assessment & Plan (07/04/2024 1:25 PM EDT): Patient presenting today with 6 days of pain with new diagnosis of shingles on the left breast which started on 06/28/2024. She went to urgent care and was diagnosed with shingles, this is her second episode, and was ultimately prescribed valacyclovir x 7 days as well as gabapentin 100 mg 3 times daily with the ability to increase the dose to 300 mg 3 times daily. She notes that she has only gone up to 200 mg 3 times daily but has not seen any improvement in pain. Discussed overall pain management for acute shingles, including gabapentin, Lidoderm patches. Lidoderm patches sent to pharmacy. Discussed that she can increase the gabapentin dose to up to 600 mg 3 times daily, as discussed with Dr. Delacruz. She notes understanding. If pain continues to persist by Tuesday morning, advised to call the office and we can switch her to Lyrica for pain management. Patient notes understanding and is appreciated. Eczema of both hands 04/26/2024 Localized swelling of lower extremity 04/26/2024 Obstructive sleep apnea 10/05/2023 Assessment & Plan (10/05/2023 9:48 AM EDT): Discussed proper use of CPAP machine as I do believe this was cause of increased fatigue as this has dramatically improved since resuming adequate use Degenerative arthritis of thumb, left 07/08/2022 Paroxysmal A-fib 07/01/2021 Hypertension 12/06/2018 PVC (premature ventricular contraction) 09/08/19 19 Supraventricular tachycardia 09/07/2018 Other fatigue 08/10/2017 Type 2 diabetes mellitus wit hout complication, without long-term current use of insulin 08/10/2017 Assessment & Plan (10/18/2024 5:13 PM EDT): History of diabetes with most recent A1c 6.4 on 02/10/2023. Repeat labs have been ordered for an A1c, although patient has not got this done yet. She has been monitoring her blood sugars at home and have been noticing them in the 200s. Advised to monitor her fasting blood sugars in the morning and record them. Metformin was recommended to help manage her diabetes, she would like to hold off at this time and continue lifestyle modifications. Discussed the importance of blood sugar control and she notes understanding. Will hold off on prescribing metformin until we receive her most updated A1c. Anxiety 12/29/2016 Chronic fatigue 12/29/2016 Fibromyalgia 12/29/2016 Bilateral foot pain 12/29/2016 Hypertriglyceridemia 12/29/2016 Mild intermittent asthma without complication Neck pain 12/29/2016 Depression 12/29/2016 Seasonal allergies 12/29/2016 Resolved Problems Problem Noted Date Diagnosed Date Resolved Date Sore throat 12/05/2023 04/26/2024 Assessment & Plan (12/05/2023 2:45 PM EDT): Does not appear bacterial in nature, lungs clear upon auscultation, no oropharyngeal or tonsillar exudate, no sinus pain or pressure, afebrile in office today. Strep test negative. We are unable to test 4-plex at this time as we do not have supplies, but I am inclined to believe this is a viral respiratory illness. Conservative management at home, discussed rest, use of Flonase for nasal congestion/postnasal drip relief, and continued Theraflu for symptom management. Educated on s/s of bacterial infections to call the office for. Post-nasal drip 02/10/2023 04/26/2024 History of supraventricular tachycardia 11/01/2019 04/26/2024 Encounters Date Type Department Care Team Description 11/05/2024 Telephone [facility] [address] [place] [address] Kyle Terry RN Migraine 10/29/2024 11:45 AM EDT Office Visit [facility] [address] [place] [address] Paul Delacruz MD Viral illness (Primary Dx) 10/29/2024 Telephone [facility] [address] [place] [address] Jhoana Forbes PA-C Migraine 10/18/2024 4:00 PM EDT Office Visit [facility] [address] [place] [address] Jhoana Forbes PA-C Urinary urgency (Primary Dx); Abscess; Routine general medical examination at a health care facility; Type 2 diabetes mellitus without complication, without long-term current use of insulin 10/17/2024 Telephone [facility] [address] [place] [address] Jhoana Forbes PA-C Triage (Red + new abdominal pain + 3 months) 09/27/2024 Refill [facility] [address] [place] [address] Jhoana Forbes PA-C Medication Refill 08/20/2024 Telephone [facility] [address] [facility] [place] [address] Bonnie Jamil RN Results 08/20/2024 Orders Only [facility] [address] [place] [address] Ruddy Gomez MD 08/19/2024 Refill [facility] [address] [place] [address] Jhoana Forbes PA-C Medication Refill 08/10/2024 Refill [facility] [address] [place] [address] Jhoana Forbes PA-C Medication Refill from Last 3 Months Immunizations Immunization Administration Dates Next Due COVID-19 (Pre-12/06) Moderna Vaccine, mRNA, PF 0 06/30/2020,06/02/2020 Tdap 02/13/2013 Zoster recombinant 10/18/2024 Family History Medical History Relation Comments Asthma Brother 1 No Known Problems Brother 2 Asthma Daughter 1 No Known Problems Daughter 2 Dementia Father Diabetes Father Hypertension Father Rheumatoid arthritis Maternal Aunt Diabetes Mother Heart failure Mother Hypertension Mother No Known Problems Sister 1 No Known Problems Sister 2 No Known Problems Son Relation Status Comments Brother 1 Alive Brother 2 Alive Daughter 1 Alive Daughter 2 Alive Father (Age 95) Maternal Aunt Alive Mother (Age 85) Sister 1 Alive Sister 2 Alive Son Alive Social History Tobacco Use Types Packs/Day Years Used Date Smoking Tobacco: Never Smokeless Tobacco: Never Tobacco Cessation:Counseling Given: Not Answered Alcohol Use Standard Drinks/Week Comments Not Currently [...] your housing situation today? I have carolyn sing 07/08/2022 How many times have you move [...] Orientation Straight 03/02/2022 1: 14 PM EST Last Filed Vital Signs Vital Sign Reading Time Taken Comments Blood Pressure 116/74 10/29/2024 11:54 AM EDT Pulse 90 10/29/2024 11:54 AM EDT Temperature 36.5 C (97.7 F) 10/29/2024 11:54 AM EDT Respiratory Rate 20 10/29/2024 11:54 AM EDT Oxygen Saturation 98% 10/29/2024 11:54 AM EDT Inhaled Oxygen Concentration - - Weight 93.3 kg (205 lb 9.6 oz) 10/29/2024 11:54 AM EDT Height 160.6 cm (5' 3.23 ) 10/29/2024 11:54 AM E DT Body Mass Index 36.16 10/29/2024 11:54 AM EDT Plan of Treatment Upcoming Encounters Date Type Department Care Team (Late st Contact Info) Description 01/17/2025 4:00 PM EST Office Visit [facility] [address] [place] [address] Jhoana Forbes PA-C [address] [place] [address] [email or web address] Health Maintenance Due Date Last Done Comments PNEUMOCOCCAL VACCINES (50+ years) (1 of 2 - PCV) 1984 COLOGUARD 2010 FIT TEST 2010 FOBT 2010 SIGMOIDOSCOPY 2010 VIRTUAL COLONOSCOPY 2010 URINE MICROALBUMIN/CREATININE RATIO 09/11/2021 09/11/2020, 03/07/2019, 12/22/2017, Additional history exists DIABETIC EYE EXAM 10/06/2022 10/06/2021, , 07/27/2018, Additional history exists LIPID PANEL 10/28/2022 10/28/2021, 08/15, 03/06/2019, Additional history exists Adult Td,Tdap Booster 02/13/2023 02/13/2013 MAMMOGRAM 05/06/2023 05/05/2021, 04/15, 05/01/2021, Additional history exists HEMOGLOBIN A1C 08/12/2023 02/10/2023, 10/16, 07/08/2022, Additional history exists CREATININE LEVEL 11/12/2023 11/11/2022, , 09/27/2022, Additional history exists INFLUENZA VACCINE (#1) 2024 COVID-19 VACCINE (3 - season) 2024 06/30/2020, 06/02/2020 ZOSTER VACCINES (2 of 2) 12/13/2024 10/18/2024 DEPRESSION SCREENING 04/26/2025 04/26/2024 BLOOD PRESSURE 04/28/2025 10/29/2024 PAP SMEAR 07/07/2025 07/07/2020, 06/15, 07/21/2017 COLONOSCOPY 07/24/2025 07/25/2015 COLORECTAL CANCER SCREENING 07/24/2025 HIV ONE-TIME SCREENING (18-65 YEARS) Completed 03/06/2019 HEPATITIS C SCREENING Completed 09/11/2020 SMOKING STATUS SCREENING (Once After 26 Yrs) Completed 10/29/2024 HEPATITIS A VACCINES Aged Out No long er eligible based on patient's age to complete this topic HIB VACCINES Aged Out No longer eligi ble based on patient's age to complete this topic MENINGOCOCCAL VACCINES (ACWY) Aged Out No longer eligible based on patient's age to complete this topic MENINGOCOCCAL VACCINES (B) Aged Out N o longer eligible based on patient's age to complete this topic Medical Devices Not on file Procedures Procedure Name Priority Date/Time Associated Diagnosis Comments URINALYSIS W/REFLEX URINE CULTURE Routine 10/18/2024 4:39 PM EDT Urinary urgency OUTSIDE LAB Routine 08/16/2024 8:08 AM EDT POCT HEMOGLOBIN A1C Routine 02/10/2023 1 0:56 AM EST Type 2 diabetes mellitus without complication, without long-term current use of insulin BASIC METABOLIC PANEL Routine 11/11/2022 3:21 PM EDT Diet-controlled diabetes mellitus LIPID PANEL Routine 10/28/2021 3:16 PM EDT Diet-controlled diabetes mellitus HM DIABETES EYE EXAM FOR RESULT ENTRY ONLY Routine 10/06/2021 HM MAMMOGRAPHY Routine 05/05/2021 MICROALBUMIN/CREATIN INE RATIO, RANDOM URINE Routine 09/11/2020 10:54 AM EDT Type 2 diabetes mellitus without complication, without long-term current use of insulin HEPATITIS C ANTIBODY, QUALITATIVE Routine 09/11/2020 10:34 AM EDT Need for hepatitis C screening test HM PAP SMEAR FOR RESULT ENTRY ONLY Routine 07/07/2020 COLONOSCOPY FOR RESULT ENTRY ONLY Routine 07/25/2015 from Last 3 Months or Most Recently Relevant to Health Maintenance Results * (ABNORMAL) Urinalysis w/reflex Urine Culture (10/18/2024 4:39 PM EDT) COLOR Yellow Yellow [facility] CLARITY Clear [facility] GLUCOSE 1+(A) Negative [facility] BILI Negative Negative [facility] KETONES Trace(A) Negative [facility] SPECIFIC GRAVITY >1.030 1.005 - 1.030 [facility] BLOOD Trace(A) Negative [facility] PH 6.0 5.0 - 8.0 [facility] Protein-UA Negative Negative [facility] NITRITE Negative Negative [facility] Leukocyte esterase, ur Negative Negative [facility] Urine (Urine) 10/18/2024 4:3 9 PM EDT 10/18/2024 8:24 PM EDT Jhoana Forbes PA-C URINE ORDERABLES Final Resul t [facility] [address] [place] [address] * Outside Lab (08/16/2024 8:08 AM EDT) Historical Provider LAB BLOOD ORDERABLES Michelle l Result * (ABNORMAL) POCT Hemoglobin A1c (02/10/2023 10:56 AM EST) Hemoglobin A1c 6.4(A) 4.2 - 5.8 % Other 02/10/2023 10:5 6 AM EST Alma Herrera NP POINT OF CARE TEST ORDERABLES F inal Result * (ABNORMAL) Basic metabolic panel (11/11/2022 3:21 PM EDT) Pathologist [facility] SODIUM 140 133 - 146 mmol/L [facility] CHLORIDE 103 96 - 108 mmol/L [facility] POTASSIUM 3.4 3.3 - 5.1 mmol/L [facility] CO2 27 21 - 35 mmol/L [facility] BUN 13 6 - 19 mg/dL [facility] CREATININE 0.90 0.5 - 1.5 mg/dL [facility] GLUCOSE 137(H) 70 - 99 mg/dL [facility] CALCIUM 9.0 8.4 - 10.3 mg/dL [facility] EGFR 75 >59 mL/min/1.7 3m2 [facility] Comment:Estimated glomerular filtration rate calculated using the CKD-EPI refit equation. ANION GAP 13 10 - 20 mmol/L [facility] Blood 11/11/2022 3:21 PM EDT 11/11/2022 3:25 PM EDT Alma Herrera NP LAB BLOOD ORDERABLES Final Resu lt [address] [address] * (ABNORMAL) Lipid panel (10/28/2021 3:16 PM EDT) Pathologist [facility] HDL 50 mg/dL [facility] Comment: Interpretation <40 mg/dL: Low HDL cholesterol (major risk factor for CHD) Greater than or equal to 60 mg/dL: High HDL cholesterol ( negative risk factor for CHD) HDL - cholesterol is affected by a number of factors, e.g. smoking, excerise, hormones, sex and age. CHOLESTEROL 244(H) 0 - 240 mg/dL [facility] TRIGLYCERIDES 134 30 - 160 mg/dL [facility] LDL 167(H) 50 - 129 mg/dL [facility] Comment: LDL levels in terms of risk for coronary heart disease: <100 mg/dL: Optimal 100-129 mg/dL: Near or above optimal 130-159 mg/dL: Borderline high 160-189 mg/dL: High >190 mg/dL: Very High CARDIAC RISK RATIO 4.9(H) 3.3 - 4.4 C [facility] Blood 10/28/2021 3:16 PM EDT 10/28/2021 3:20 PM EDT us Alma Herrera NP LAB BLOOD ORDERABLES Final Resu lt Performing Organization Address City/[facility]/ZIP Co de Phone Number [address] [address] * HM DIABETES EYE EXAM FOR RESULT ENTRY ONLY (10/06/2021) Historical Provider HEALTH MAINTENANCE Edited Result - Final * HM MAMMOGRAPHY FOR RESULT ENTRY ONLY (05/05/2021) Historical Provider HEALTH MAINTENANCE Edited Result - Final * (ABNORMAL) Microalbumin/creatinine ratio, random urine (09/11/2020 10:54 AM EDT) URINE MICROALBUMIN 2.4(H) 0 - 2.3 mg/dL [facility] URINE CREATININE 466 mg/[facility] MICROALB/CRE RATIO 5.2 0 - 20 mg/g Cre [facility] Urine (Urine) 09/11/2020 10: 54 AM EDT 09/11/2020 11:01 AM EDT us Alma Herrera NP URINE ORDERABLES Final Result Performing Organization Address City/[facility]/ZIP Co de Phone Number [address] [address] * Hepatitis C antibody, qualitative (09/11/2020 10:34 AM EDT) HCV NON-REACTIV E NON-REACTI VE [facility] Blood 09/11/2020 10:3 4 AM EDT 09/11/2020 10:38 AM EDT us Alma Herrera NP LAB BLOOD ORDERABLES Final Resu lt Performing Organization Address City/State/[facility] Co de Phone Number [facility] [address] [place] [address] * PAP SMEAR FOR RESULT ENTRY ONLY (07/07/2020) Pap smear NILM, reactive cellular changes, HPV neg Historical Provider MD HEALTH MAINTENANCE Final Result * COLONOSCOPY FOR RESULT ENTRY ONLY (07/25/2015) Colonoscopy 10 yrs Historical Provider HEALTH MAINTENANCE Final Result from Last 3 Months or Most Recently Relevant to Health Maintenance Insurance [facility] PPO [employer] PPO [employer] OUT OF STATE PPO [place] [employer] STATE [place] PPO Care Teams Quarter Section Ironer Relationship Specialty Start Date End Date Jhoana Forbes PA-C [address] [place] [address] [email or web address] PCP - General Physician Documentum Consultant 04/10/24 Darell Tompkins MD [address] [place] [address] [place] [address] Ophthalmology 06/08/19 Additional Source Comments The information contained in this document represents components of the legal health record. It is not the complete legal health record.[facility]
--- NOTE | 2024-11-08 20:30 | ED.CHESTPAIN ---
HPI - Chest Pain General Chief Complaint: Chest Pain Stated Complaint: SOB, CP Time Seen by Provider: 11/08/24 20:13 Related Data Home Medications ?Medication ?Instructions ?Recorded ?Confirmed lorazepam 0.5 mg tablet 1 tab PO BID PRN anxiety 12/06/19 03/13/24 triamcinolone acetonide 0.1 % See Rx Instructions .Route .COMPLEX 12/06/19 03/13/24 topical cream duloxetine 60 mg capsule,delayed 60 mg PO DAILY 05/15/20 03/13/24 release montelukast 10 mg tablet 10 mg PO DAILY 05/15/20 03/13/24 cetirizine 10 mg capsule (Zyrtec) 10 mg PO DAILY PRN 03/31/21 03/13/24 albuterol sulfate 90 mcg/actuation 0 mcg inhalation 08/20/22 03/13/24 aerosol inhaler Previous Rx's ?Medication ?Instructions ?Recorded diltiazem HCl 180 mg 180 mg PO DAILY #90 caps 02/07/24 capsule,extended release 24 hr rivaroxaban 20 mg tablet (Xarelto) 20 mg PO QPM #30 tabs 04/04/24 gabapentin 100 mg capsule 100 mg PO Q8H PRN pain #30 caps 07/02/24 valacyclovir 1 gram tablet 1,000 mg PO Q8H 7 days #21 tabs 07/02/24 Allergies Allergy/AdvReac Type Severity Reaction Status Date / Time Sulfa (Sulfonamide Allergy Intermediate rash Verified 11/08/24 16:43 Antibiotics) (SULFA (SULFONAMIDE ANTIBIOTICS)) amitriptyline Allergy Unknown lethargy Verified 11/08/24 16:43 codeine (CODEINE) Allergy Unknown RASH Verified 11/08/24 16:43 naproxen (From NAPROSYN) Allergy Unknown RASH Verified 11/08/24 16:43 [facility] Past Medical History Medical History Obstructive sleep apnea Paroxysmal atrial fibrillation Diabetes Asthma SVT (supraventricular tachycardia) Surgical History Hx of lumbosacral spine surgery Family History Family History Father Diabetes Mother Diabetes CVD (cardiovascular disease) CHF (congestive heart failure) HTN (hypertension) Social History Social History Alcohol intake: current Alcohol intake frequency: does not drink Patient Tobacco Use Status: Never used Tobacco Physical Exam Vital Signs: Vital Signs: Last Vital Signs Temp 98.4 F 11/09/24 00:38 Pulse 89 11/09/24 00:38 Resp 16 11/09/24 00:38 BP 117/82 11/09/24 00:38 Pulse Ox 95 11/09/24 00:38 O2 Del Method Room Air 11/09/24 00:38 BMI result Body Mass Index 33.4 Medical Decision Making Medical Decision Making MDM Narrative: My interpretation patient's EKG showed a sinus rhythm heart rate is 100 AR QRS QTC normal there is no acute ST segment elevation noted. Chest x-ray still pending. Patient's 1st set of cardiac enzyme was negative. Patient's pain atypical for ACS has been constant for the last 2 days troponin 1st set is negative will get a 2nd set nevertheless. Patient EKG is normal. No acute changes. History not consistent with ACS. Unlikely to have PE as patient is on Xarelto patient's hemoglobin is 13 which is baseline. No signs of anemia. Lab Data 11/08/24 17:05 11/08/24 17:05 Labs: Lab Results 11/08/24 11/08/24 11/08/24 Range/Units 17:03 17:05 21:00 WBC 7.3 (4.8-10.8) X10*3/uL RBC 4.35 (4.20-5.50) X10*6/uL Hgb 13.0 (12.0-16.0) g/dl Hct 37.7 (37.0-47.0) % MCV 86.7 (80.0-98.0) fL MCH 29.9 (27.0-33.0) pg MCHC 34.5 (31.0-35.0) g/dl RDW 12.3 (11.0-16.0) % Plt Count 355 (160-400) X10*3/uL MPV 9.8 (9.4-12.3) fL Immature Gran % (Auto) 0.4 (0.0-0.4) % Neut % (Auto) 57.4 (45-73) % Lymph % (Auto) 31.3 (20-40) % Brule % (Auto) 8.4 (2-11) % Eos % (Auto) 1.9 (0-4) % Baso % (Auto) 0.6 (0-2) % Lymph # (Auto) 2.3 (1.2-4.9) X10*3/uL Brule # (Auto) 0.6 (0.1-1.2) X10*3/uL Eos # (Auto) 0.1 (0.0-0.4) X10*3/uL Baso # (Auto) 0.0 (0.0-0.2) X10*3/uL Abs Immat Gran (auto) 0.03 (0.00-0.03) X10*3/uL Absolute Neuts (auto) 4.2 (2.0-8.3) x10*3/uL Absolute Nucleated RBC 0.000 (0.0-0.012) X10*3/uL Nucleated RBC % (auto) 0.0 (0.0-0.2) /100WBC Sodium 138 (135-145) mmol/L Potassium 3.2 L (3.3-5.1) mmol/L Chloride 104 (96-108) mmol/L Carbon Dioxide 26 (22-29) mmol/L Anion Gap 11 L (12-20) BUN 14 (9-16) mg/dL Creatinine 0.88 (0.5-1.4) mg/dL Estim Creat Clear Calc 76.8 Estimated GFR > 60 Random Glucose 127 H (60-115) mg/dL Calcium 8.8 D (8.4-10.2) mg/dL Magnesium 2.2 (1.6-2.6) mg/dL Total Bilirubin 0.3 (0.0-1.0) mg/dL Direct Bilirubin 0.1 (0.0-0.5) mg/dL AST 24 (5-31) U/L ALT 18 (0-31) U/L Alkaline Phosphatase 106 (39-117) U/L Troponin I High Sens < 2.7 < 2.7 (<3.5-17.0) ng/L NT-Pro-B Natriuret Pep 65.9 (<300) pg/mL Total Protein 7.3 (6.5-8.0) g/dL Albumin 4.2 (3.5-5.0) g/dL TSH 3.52 (0.32-4.0) uIU/mL COVID-19 (JAMILAH) Negative (Negative) COVID-19 Clin Com See Note Influenza Type A (JAKE) Negative (Negative) Influenza Type B (JAKE) Negative (Negative) Influenza A & B Note See Note Discharge Plan Discharge Clinical Impression: Chest pain Patient Disposition: Home, Self-Care Instructions: Chest Pain (DC) Prescriptions: No Action diltiazem HCl 180 mg capsule,extended release 24hr 180 mg PO DAILY Qty: 90 3RF Xarelto 20 mg tablet 20 mg PO QPM Qty: 30 12RF triamcinolone acetonide 0.1 % cream See Rx Instructions .ROUTE .COMPLEX Rx Instructions: apply bid to affected areas lorazepam 0.5 mg tablet 1 tab PO BID PRN (Reason: anxiety) duloxetine 60 mg capsule,delayed release(DR/EC) 60 mg PO DAILY montelukast 10 mg tablet 10 mg PO DAILY Zyrtec 10 mg capsule 10 mg PO DAILY PRN albuterol sulfate 90 mcg/actuation HFA aerosol inhaler 0 mcg inhalation valacyclovir 1 gram tablet 1,000 mg PO Q8H 7 Days Qty: 21 0RF gabapentin 100 mg capsule 100 mg PO Q8H PRN (Reason: pain) Qty: 30 0RF Referrals: Jhoana Forbes PA [Primary Care Provider, Internal Medicine] - 11/12/24 Interventions: ED Discharge Assessment Last Done: 11/09/24 00:38 Discharge Date/Time: 11/09/24 00:40 Print Language: [place]orese
[2024-11-08 20:55] VITALS: BP 112/71; PULSE 80; RESP 20; TEMP 36.9; O2SAT 95
[2024-11-08 21:26] LABS: Troponin-I High Sensitivity < 2.7 ng/L (<3.5-17.0)
[2024-11-08 22:16] VITALS: BP 112/68; PULSE 89; RESP 16; O2SAT 97
--- NOTE | 2024-11-08 23:39 | PC.NURSE ---
this rn assumed care of pt @ [id number], disposition pending per dr ACOSTA
[2024-11-09 00:37] VITALS: BP 117/82; PULSE 89; RESP 16; TEMP 36.9; O2SAT 95
[2024-11-09 00:38] VITALS: BP 117/82; PULSE 89; RESP 16; TEMP 36.9; O2SAT 95
== END 2024-11-09 00:40 | disposition home or self-care (01) ==
PROVIDERS: Physician Assistant Medical; Emergency Provider Emergency Medicine Emergency Medical Services
DX: R07.89 Other chest pain (principal); R06.02 Shortness of breath; R53.1 Weakness; Z79.899 Other long term (current) drug therapy; Z11.52 Encounter for screening for COVID-19
CPT/HCPCS: 36415; 71045; 80048; 80076; 83735; 83880; 84443; 84484; 85025; 87502; 87635; 93005; 99283; 99285

== ENCOUNTER → 2024-11-08 16:21 | Outpatient (BNV) | payer BC, SELFPAY | PROVIDERS: Emergency Provider Emergency Medicine Emergency Medical Services; Visit Provider Internal Medicine Cardiovascular Disease | DX: R94.31 Abnormal electrocardiogram [ECG] [EKG] (principal) | CPT/HCPCS: 93010 ==

== ENCOUNTER → 2024-11-08 20:28 | Outpatient (BNV) | payer BC, SELFPAY | PROVIDERS: Emergency Provider Emergency Medicine Emergency Medical Services; Visit Provider Radiology Diagnostic Radiology | DX: R06.02 Shortness of breath (principal) | CPT/HCPCS: 71045 ==

== ENCOUNTER → 2024-12-12 12:41 | Outpatient (REF) | payer BC, SELFPAY ==
--- NOTE | 2024-12-12 12:45 | CA_ITS ---
Transthoracic Echocardiogram Patient (Last, First, Middle): Keyla Armando, Gender: Female Date of : 1965 Age: 59 Procedure Date: 12/12/2024 Procedure Type: Transthoracic Echocardiogram Location: OP Height: 162.56 cm Weight: 88. kg BSA: 1.93 m2 Heart Rate: bpm BP: 112 / 70 mmHg Supervisor Carbon Electrodes: TO Referring MD: Jhoana PEDROZA Symptoms: DYSPNEA ONEXERTION Study Quality: Fair/Contrast ECG Rhythm: Sinus Conclusions: - The left ventricular systolic function is normal. The visually estimated ejection fraction is between 55-60%. - No obvious valvular pathology seen on this study. Findings Procedure Information Contrast agent, definity, is being given per protocol without apparent complications. Left Ventricle Normal left ventricular cavity size. There is normal left ventricular wall thickness. The left ventricular systolic function is normal. The visually estimated ejection fraction is between 55-60%. There is no evidence of regional wall motion abnormalities. Diastolic function is normal for age. Right Ventricle Normal right ventricular cavity size and systolic function. Atria Both atria are normal in size. Aortic Valve There is a normal trileaflet aortic valve. There is no aortic valve stenosis. There is no aortic valve regurgitation. Mitral Valve There is mild mitral annular calcification. There is trace mitral valve regurgitation. There is no mitral valve stenosis. Pulmonic Valve The pulmonic valve is likely normal. Tricuspid Valve Normal tricuspid valve structure. There is trace tricuspid valve regurgitation. There is no evidence of pulmonary hypertension. Great Vessels The asc aorta is normal in size. Venous The inferior vena cava is normal in size and collapses greater than 50% with inspiration. Pericardium/Pleural There is no evidence of pericardial effusion. Prior Study Comparison No significant change compared to prior study dated: 03/05/2024. Recommendations, Care & Conclusions No obvious valvular pathology seen on this study. Measurements 2D Linear Measurements IVSd: 0.67 0.6-0.9/0.6-1.0 cm LVIDd: 4.47 3.9-5.3/4.2-5.9 cm LVIDd Index: 2.32 2.4-3.2/2.2-3.1 cm/m2 LVIDs: 3.03 2.0-3.6 cm LVPWd: 0.70 0.7-1.1 cm LA Diam: 3.10 2.7-3.8/3.0-4.0 cm LAIDs Index: 1.61 1.5-2.3 cm/m2 LV Mass: 113.51 67-162/88-224 g LV Mass Index: 58.81 43-95/49-115 g/m2 LVOT Diam: 2.00 3.0+(-)1.3 cm 2D Systolic Function EF 4C: 54.30 >55% EF 2C: 51.70 >55% EF BiP: 52.80 >55% Mitral Valve MV Pk E: 0.86 MV PK A: 1.11 MV Decel Time: 190.00 E/A: 0.80 E'Lateral: 7.29 E'Medial: 4.46 E/E' Med: 19.20 E/E' Lat: 11.80 PHT: 56.00 MVA PHT: 3.93 Decel [place]: 4.50 Aortic Valve AoV Pk Emil: 1.69 AoV Mn Emil: 1.20 AoV VTI: 0.32 AoV Pk Grad: 11.00 Aov Mn Grad: 6.00 HAL Cont.VTI: 1.97 LVOT LVOT Pk Emil: 0.94 LVOT Mn Emil: 0.60 LVOT VTI: 0.20 LVOT Pk Grad: 4.00 LVOT Mn Grad: 2.00 LVOT Diam: 2.00 LVOT Area: 3.14 Diastolic Function MV Pk E: 0.86 MV Pk A: 1.11 E/A: 0.80 E'Medial: 4.46 E/E' Med: 19.20 E' Laterial: 7.29 E/E' Lat: 11.80 Right Ventricle TAPSE (mm): 22.40 TVS' Emil: 10.60 Tricuspid Valve TR Pk Emil: 2.10 TR Pk Grad: 18.00 RA Press: 3.00 RVSP: 21.00 Great Vessels Aorta Sinus of Valsalva: 2.82 2.0-3.[address] [place]: 2.33 1.7-3.4 cm Ao Asc: 3.10 2.1-3.4 cm Updated in Other Vendor System with Status of Final Derrell Marina MD electronically signed on 12/14/2024 11:54:57 AM with status of Final
--- OUTSIDE RECORDS SUMMARY | 2024-12-12 16:00 | XMS_ITS | Encounter Summary ---
Author Organization [facility] Address [address] [place] [address] [place] [phone] Phone Care Team Providers Care Parking Enforcement Technician Name Role Phone Alma Herrera ASSISTANT CONTROLLER Primary Care Provider Darell Tompkins MD Unavailable [phone] Unknown, Unknown Primary Care Provider [facility] Primary Care Provider [phone] Pcp, Unknown Primary Care Provider Maci Madison [employer]INE PLANT OPERATOR Primary Care Provider [phone] Jhoana Forbes PA-C Primary Care Provider [phone] Reason for Visit * Reason Onset Date Comments Cough 12/29/2021 Encounter Details Date Type Department Care Team (Late st Contact Info) Description 12/29/2021 Nurse Triage [facility] Internal Medicine [address] [place] [address] Alma Herrera, ASSISTANT CONTROLLER [address] [facility] [address] [place] [address] [email or web address] Cough Social History Tobacco Use Types Packs/Day [...] high school, GED, job training, learning the [place] language, technical skills, or developing parenting skills)? [...] To Follow Advice Disposition Comments: Protocols used: Cipmk-Dcugt-Gz Care Advice Given Care Advice Patient/Caregiver understands and will follow care advice?: Yes, plans to follow advice HOME CARE: * You should be able to treat this at home. COUGH MEDICINES: * COUGH DROPS: Sngw-rpy-pbcmerc cough drops can help a lot, especially for mild coughs. They soothean irritated throat and remove the tickle sensation in the back of the throat. Cough drops are easyto carry with you. * COUGH SYRUP WITH DEXTROMETHORPHAN: An qqlt-kfa-ttvljkx cough syrup can help your cough. The most common cough suppressant in vfys-mln-zsttcoi cough medicines is dextromethorphan. * HOME REMEDY - HARD CANDY: Hard candy works just as well as djge-til-ebdryqt cough drops. People who have diabetes should [...] (e.g., travel history, exposures) no Protocols used: [id number]-ES * Pretty Maravilla - 12/29/2021 8:59 AM EST Pt called and requests a refill on her albuterol inhaler. She asked to please be contacted by nursing to discuss her symptoms. States she has been coughing and wheezing. Please advise. Thank you. documented in this encounter Plan of Treatment Upcoming Encounters Date Type Department Care Team (Late st Contact Info) Description 01/14/2025 4:00 PM EST Office Visit [facility] [place] Internal Medicine [address] [place] [phone] Jhoana Forbes PA-C [address] [place] [address] [email or web address] documented as of this encounter Visit Diagnoses Diagnosis Wheezing- Primary documented in this encounter Additional Health Concerns Infection Onset Date Last Indicated Resolved Time COVID-19 05/10/2024 05/10/2024 05/31/2024 1:22 AM EDT Assessment Noted Time PHQ-2 Depression Total Score: 0 07/02/19 1:04 PM EDT documented as of this encounter Care Teams Parking Enforcement Technician Relationship Specialty Start Date End Date Alma Herrera NP PCP - General 12/27/16 04/26/23 Unknown, Unknown, PCP - General 04/27/23 09/05/23 Maci May FNP [address] [address] [email or web address] PCP - General Nurse Practitioner 09/06/23 03/05/24 Pcp, Unknown PCP - General 03/06/24 03/13/24 Maci May FNP [address] [address] [email or web address] PCP - General Nurse Practitioner 03/14/24 04/09/24 Jhoana Forbes PA-C [address] [place] [phone] [email or web address] PCP - General Physician Production Control Supervisor 04/10/24 Darell Tompkins MD [address] [place] [phone] Ophthalmology 06/08/19 documented as of this encounter Additional Source Comments The information contained in this document represents components of the legal health record. It is not the complete legal health record.[facility]
--- OUTSIDE RECORDS SUMMARY | 2024-12-12 16:00 | XMS_ITS | Clinical Summary ---
Author Organization [facility] Address [address] [place] [id number] Phone Care Team Providers Care Director Regulatory Affairs Name Role Phone Darell Tompkins MD Unavailable [...] times a day as needed. 60 g 0 Active XARELTO 20 mg Tab Take 20 mg by mouth daily with dinner. 1 Active dilTIAZem (CARDIZEM CD) 180 MG 24 hr capsule TAKE 1 CAP(180 MG) BY MOUTH DAILY 1 Active clotrimazole-bet amethasone (LOTRISONE) cream Apply topically 2 (two) times a day. 15 g 5 Active lidocaine (LIDODERM) 5 %Indications:Acu te pain associated with herpes zoster Place 1 patch onto the skin daily. Remove & Discard patch within 12 hours or as directed by MD 30 patch 5 Active DULoxetine (CYMBALTA) 60 MG capsuleIndicatio ns:Depression TAKE 1 CAPSULE BY MOUTH EVERY DAY 90 capsule 3 5 Active montelukast (SINGULAIR) 10 mg tabletIndication s:Mild intermittent asthma without complication TAKE 1 TABLET BY MOUTH EVERY DAY 90 tablet 3 5 Active albuterol 90 mcg/actuation inhalerIndicatio ns:Wheezing INHALE 2 PUFFS INTO THE LUNGS EVERY 6 HOURS NEEDED FOR WHEEZE 8.5 g 1 5 Active LORazepam (ATIVAN) 0.5 MG tabletIndication s:Anxiety TAKE 1 TABLET (0.5 MG TOTAL) BY MOUTH DAILY NEEDED FOR ANXIETY (MUST LAST ONE MONTH). 12 tablet 5 Active tiZANidine (ZANAFLEX) 2 MG tabletIndication s:Cervicalgia Take 1 tablet (2 mg total) by mouth every 6 (six) hours as needed (muscle spasm). 30 tablet 5 Active Active Problems Problem Noted Date Diagnosed Date Dyspnea 11/14/2024 Assessment & Plan (11/14/2024 2:59 PM EDT): She reports shortness of breath on exertion, such as walking fast or climbing stairs. She has not used her albuterol inhaler as she does not believe it is due to asthma. She does report some mild swelling of her bilateral ankles but no evidence of edema on exam today. Hemodynamically stable. Lungs are clear to auscultation bilaterally, heart without murmurs. Will obtain an echocardiogram to further assess. If echocardiogram is normal, we will consider a CT scan of the chest and possible PFTs. Chest pain 11/14/2024 Assessment & Plan (11/14/2024 2:58 PM EDT): The patient reports chest pain and dyspnea on exertion, went to the ER and had a negative workup including EKG and troponins. Negative chest x-ray. Given her symptoms, still have underlying concern for cardiac etiology. Patient previously following with [facility] cardiology, advised the patient she should schedule an appointment with their office as she is already established. Also advised obtaining a stress test to further assess. Will also obtain an echocardiogram. Viral illness 10/29/2024 Assessment & Plan (10/29/2024 [...] Routine general medical exam ination at a health care facility 10/18/2024 Assessment & Plan (10/18/2024 [...] Hypertriglyceridemia 12/29/2016 Mild intermittent asthma without complication Cervicalgia 12/29/2016 Assessment & Plan (11/20/2024 1:19 PM EDT): She reports left scapular and cervical neck pain with some radiation going down her left arm occasionally. She has difficulty with turning her head sideways. On exam there is tenderness palpation along the left cervical paraspinous muscle and left trapezius muscle without palpable muscle spasm. Will treat conservatively with Tylenol/ibuprofen, lidocaine patches, and tizanidine. Advised against using tizanidine and Flexeril together. Discussed side effects of tizanidine including drowsiness, advised against operating heavy machinery while on this medication. Will also obtain an x-ray of her cervical spine given her history of degenerative disc disease and previous surgeries. If symptoms continue to worsen or radiculopathy worsens, can consider a short course of prednisone. Depression 12/29/2016 Seasonal allergies 12/29/2016 Resolved Problems [...] Encounters Date Type Department Care Team Description 12/03/2024 3:55 PM EDT - 12/03/2024 11:59 PM EDT Hospital Encounter [facility] Emergency - Main Hospital [address] [place] [address] Jhoana Forbes PA-C Discharge Disposition: Home or Self Care 11/20/2024 1:00 PM EDT Office Visit [facility] Internal [facility] [address] [place] [address] Jhoana Forbes PA-C Cervicalgia (Primary Dx) 11/20/2024 Documentation [facility] Internal [facility] [address] [place] [address] Jhoana Forbes PA-C 11/19/2024 Telephone [facility] [address] [place] [address] Jhoana Forbes PA-C Triage ([place] + neck pain + 11/14) 11/14/2024 2:40 PM EDT Office Visit [facility] [address] [place] [address] Jhoana Forbes PA-C Dyspnea, unspecified type (Primary Dx); Chest pain, unspecified type 11/09/2024 Orders Only [facility] [address] [place] [address] Ruddy Gomez MD 11/05/2024 Telephone [facility] [address] [place] [address] Kyel Terry RN Migraine 10/29/2024 11:45 AM EDT Office Visit [facility] [address] [place] [address] Paul Delacruz MD Viral illness (Primary Dx) 10/29/2024 Telephone [facility] [address] [place] [address] Jhoana Forbes PA-C Migraine 10/18/2024 4:00 PM EDT Office Visit [facility] [address] [place] [address] Jhoana Forbes PA-C Urinary urgency (Primary Dx); Abscess; Routine general medical examination at a health care facility; Type 2 diabetes mellitus without complication, without long-term current use of insulin 10/17/2024 Telephone [facility] [address] [address] Jhoana Forbes PA-C Triage (Red + new abdominal pain + 3 months) 09/27/2024 Refill [facility] [address] [facility] [address] [place] [address] Jhoana Forbes PA-C Medication Refill from Last [...] Sign Reading Time Taken Comments Blood Pressure 122/74 11/20/2024 1:03 PM EDT Pulse 105 11/20/2024 1:03 PM EDT Temperature 36.3 C (97.3 F) 11/20/2024 1:03 PM EDT Respiratory Rate 21 11/20/2024 1:03 PM EDT Oxygen Saturation 97% 11/20/2024 1:03 PM EDT Inhaled Oxygen Concentration - - Weight 87.1 kg (192 lb) 11/20/2024 1:03 PM EDT Height 160.6 cm (5' 3.23 ) 11/20/2024 1:03 PM ED T Body Mass Index 33.77 11/20/2024 1:03 PM EDT Plan of Treatment Upcoming Encounters Date Type Department Care Team (Late st Contact Info) Description 01/14/2025 4:00 PM EST Office Visit [facility] [address] [place] [address] Jhoana Forbes PA-C [address] [place] [address] [email or web address] Health Maintenance Due Date Last Done Comments PNEUMOCOCCAL VACCINES (50+ years) (1 of 2 - PCV) 1984 COLOGUARD 2010 FIT TEST 2010 FOBT 2010 SIGMOIDOSCOPY 2010 VIRTUAL COLONOSCOPY 2010 RSV VACCINE (1 - Risk 50-74 years 1-dose series) 07/19/2015 DIABETIC EYE EXAM 10/06/2022 10/06/2021, , 07/27/2018, Additional history exists Adult Td,Tdap Booster 02/13/2023 02/13/2013 MAMMOGRAM 05/06/2023 05/05/2021, 04/15, 05/01/2021, Additional history exists INFLUENZA VACCINE (#1) 2024 COVID-19 VACCINE (3 - season) 2024 06/30/2020, 06/02/2020 ZOSTER VACCINES (2 of 2) 12/13/2024 10/18/2024 HEMOGLOBIN A1C 02/16/2025 08/16/2024, 1209/2022, 11/11/2022, Additional history exists DEPRESSION SCREENING 04/26/2025 04/26/2024 BLOOD PRESSURE 05/21/2025 11/20/2024 PAP SMEAR 07/07/2025 07/07/2020, 06/15, 07/21/2017 COLONOSCOPY 07/24/2025 07/25/2015 COLORECTAL CANCER SCREENING 07/24/2025 LIPID PANEL 08/16/2025 08/16/2024, 07/0 04/2024, 08/16/2024, Additional history exists URINE MICROALBUMIN/CREATININE RATIO 08/16/2025 08/16/2024, 09/11/2020, 03/07/2019, Additional history exists CREATININE LEVEL 11/08/2025 11/08/2024, , 10/07/2022, Additional history exists HIV ONE-TIME SCREENING (18-65 YEARS) Completed 03/06/2019 HEPATITIS C SCREENING Completed 09/11/2020 SMOKING STATUS SCREENING (Once After 26 Yrs) Completed 11/20/2024 HEPATITIS A VACCINES Aged Out No long [...] Procedure Name Priority Date/Time Associated Diagnosis Comments XR CERVICAL SPINE 2-3 VIEWS Routine 12/03/2024 4:24 PM EDT Cervicalgia OUTSIDE XR CHEST REPORT ONLY Routine 11/08/2024 1:37 PM EDT OUTSIDE POTASSIUM LEVEL Routine 11/08/2024 OUTSIDE TSH LEVEL Routine 11/08/2024 OUTSIDE ALT LEVEL Routine 11/08/2024 OUTSIDE SERUM CREATININE LEVEL Routine 11/08/2024 URINALYSIS W/REFLEX URINE CULTURE Routine 10/18/2024 4:39 PM EDT Urinary urgency OUTSIDE URINE MALB/CRE RATIO Routine 08/16/2024 OUTSIDE HEMOGLOBIN A1C Routine 08/16/2024 OUTSIDE HDL Routine 08/16/2024 HM DIABETES EYE EXAM FOR RESULT ENTRY ONLY Routine 10/06/2021 HM MAMMOGRAPHY Routine 05/05/2021 HEPATITIS C ANTIBODY, QUALITATIVE Routine 09/11/2020 10:34 AM EDT Need for hepatitis C screening test HM PAP SMEAR FOR RESULT ENTRY ONLY Routine 07/07/2020 HM COLONOSCOPY FOR RESULT ENTRY ONLY Routine 07/25/2015 from Last 3 Months or Most Recently Relevant to Health Maintenance Results * XR CERVICAL SPINE 2-3 VIEWS (12/03/2024 4:24 PM EDT) Anatomical Region Laterality Modality C-spine Computed Radiogr aphy 12/04/2024 11:2 3 AM EDT Impressions 12/04/2024 11:24 AM EDT Degenerative changes of the cervical spine. Narrative 12/04/2024 11:24 AM EDT XR CERVICAL SPINE 2-3 VIEWS Referring clinician's provided indication for this examination in [facility]: Cervical radiculopathy, no red flags; Pain COMPARISON: None FINDINGS: No malalignment. Cervical vertebral body heights are maintained. Multilevel disc height loss, most pronounced and moderate 6 7. Small endplate osteophytes. Mild multilevel facet arthropathy and uncovertebral hypertrophy. The dens is intact. The lateral masses of C1 and C2 are well aligned. No prevertebral soft tissue swelling. Procedure Note Sb Aragon MD - 12/04/2024 XR CERVICAL SPINE 2-3 VIEWS Referring clinician's provided indication for this examination in [facility]:Cervical radiculopathy, no red flags; Pain COMPARISON: None FINDINGS: No malalignment. Cervical vertebral body heights are maintained.Multilevel disc height loss, most pronounced and moderate 6 7. Smallendplate osteophytes. Mild multilevel facet arthropathy and uncovertebralhypertrophy. The dens is intact. The lateral masses of C1 and C2 are wellaligned. No prevertebral soft tissue swelling. IMPRESSION: Degenerative changes of the cervical spine. Result [facility] Jhoana Forbes PA-C IMG XR SPINE Final Result * Outside XR??Chest Report Only (11/08/2024 1:37 PM EDT) Result [facility] Provider IMG XR CHEST Final Res ult * Outside TSH Level (11/08/2024) TSH - External 3.52 0.5 - 5 uIU/L Result [facility] Provider LAB BLOOD ORDERABLES Michelle l Result * (ABNORMAL) Outside Potassium Level (11/08/2024) Potassium level - External 3.2(A) 3.4 - 5.0 mmol/L Result [facility] LAB BLOOD ORDERABLES Michelle l Result * Outside Serum Creatinine Level (11/08/2024) Pathologist [facility] Creatinine, serum - External 0.88 0.8 - 1.3 mg/dL Result [facility] LAB BLOOD ORDERABLES Michelle l Result * Outside ALT Level (11/08/2024) ALT - External 18 5 - 30 U/L Result [facility] LAB BLOOD ORDERABLES Michelle l Result * (ABNORMAL) Urinalysis w/reflex Urine Culture (10/18/2024 4:39 PM EDT) COLOR Yellow Yellow [facility] CLARITY Clear [facility] GLUCOSE 1+(A) Negative [facility] BILI Negative Negative [facility] KETONES Trace(A) Negative [facility] SPECIFIC GRAVITY >1.030 1.005 - 1.030 [facility] BLOOD Trace(A) Negative [facility] PH 6.0 5.0 - 8.0 [facility] Protein-UA Negative Negative [facility] NITRITE Negative Negative [facility] Leukocyte esterase, ur Negative Negative [facility] Urine (Urine) 10/18/2024 4:3 9 PM EDT 10/18/2024 8:24 PM EDT Result [facility] Jhoana Forbes PA-C URINE ORDERABLES Final Resul t [facility] [address] [place] [address] * Outside HbA1c (08/16/2024) Hemoglobin A1c - External 7.4 % Result [facility] LAB BLOOD ORDERABLES Michelle l Result * Outside Urine MALB/Cre Ratio (08/16/2024) Microalbumin/Cr eatinine Ratio, urine - External 6.2 Result [facility] LAB BLOOD ORDERABLES Michelle l Result * Outside HDL (08/16/2024) HDL - External 51 40 - 80 mg/dL Result [facility] LAB BLOOD ORDERABLES Michelle l Result * HM DIABETES EYE EXAM FOR RESULT ENTRY ONLY (10/06/2021) Result [facility] Provider HEALTH MAINTENANCE Edited Result - Final * HM MAMMOGRAPHY FOR RESULT ENTRY ONLY (05/05/2021) Result [facility] Provider HEALTH MAINTENANCE Edited Result - Final * Hepatitis C antibody, qualitative (09/11/2020 10:34 AM EDT) HCV NON-REACTIV E NON-REACTI VE [facility] Blood 09/11/2020 10:3 4 AM EDT 09/11/2020 10:38 AM EDT Alma Herrera NP LAB BLOOD ORDERABLES Final Resu lt [address] [address] * PAP SMEAR FOR RESULT ENTRY ONLY (07/07/2020) Pap smear NILM, reactive cellular changes, HPV neg Historical Provider MD HEALTH MAINTENANCE Final Result * COLONOSCOPY FOR RESULT ENTRY ONLY (07/25/2015) Colonoscopy 10 yrs Historical Provider HEALTH MAINTENANCE Final Result from Last 3 Months or Most Recently Relevant to Health Maintenance Insurance [facility] PPO [place] OUT OF STATE PPO [place] STATE [place] Care Teams Director Regulatory Affairs Relationship Specialty Start Date End Date Jhoana Forbes PA-C [address] [place] [phone] [email or web address] PCP - General Physician Manager Product 04/10/24 Darell Tompkins MD [address] [place] [address] Dr RIOS, VINICIUS [address] Ophthalmology 06/08/19 Additional Source Comments The information contained in this document represents components of the legal health record. It is not the complete legal health record.[facility]
--- OUTSIDE RECORDS SUMMARY | 2024-12-12 16:00 | XMS_ITS | Encounter Summary ---
Author Organization [facility] Address [address] [place] [phone] Phone Care Team Providers Care Mechanical Supervisor Name Role Phone Darell Tompkins MD Unavailable [phone] Jhoana Forbes PA-C Primary Care Provider [phone] Encounter Details Date Type Department Care Team (Late st Contact Info) Description 11/09/2024 Orders Only [facility] Internal Medicine [address] [place] [address] Provider, MD Ruddy [address] [place] [id number] Social History Tobacco Use Types Packs/Day Years [...] PM EST documented as of this encounter Plan of Treatment Upcoming Encounters Date Type Department Care Team (Late st Contact Info) Description 01/14/2025 4:00 PM EST Office Visit [facility] Internal Medicine [address] [place], [place] [phone] Jhoana Forbes PA-C [address] [place], [place] [phone] documented as of this encounter Procedures Procedure Name Priority Date/Time Associated Diagnosis Comments OUTSIDE XR CHEST REPORT ONLY Routine 11/08/2024 1:37 PM EDT documented in this encounter Results * Outside XR??Chest Report Only (11/08/2024 1:37 PM EDT) us Historical Provider MD BERNARD XR CHEST Final Res ult documented in this encounter Visit Diagnoses Not on filedocumented in this encounter Additional Health Concerns Assessment Noted Time PHQ-2 Depression Total Score: 0 04/27/19 25 3:06 PM EDT documented as of this encounter Care Teams Mechanical Supervisor Relationship Specialty Start Date End Date Jhoana Forbes PA-C [address] [place] [id number] PCP - General Physician Phlebotomy Manager 04/10/24 Darell Tompkins MD [address] [place] [address] [place] [address] Ophthalmology 06/08/19 documented as of this encounter Additional Source Comments The information contained in this document represents components of the legal health record. It is not the complete legal health record.[facility]
== END ==
LOC: HO.CARD 12:41
DX: R06.09 Other forms of dyspnea (principal)
CPT/HCPCS: 93306; Q9957

== ENCOUNTER → 2024-12-12 12:45 | Outpatient (BNV) | payer BC, SELFPAY | PROVIDERS: Visit Provider Internal Medicine | DX: R06.02 Shortness of breath (principal); I34.81 Nonrheumatic mitral (valve) annulus calcification | CPT/HCPCS: 93306 ==